=== PATIENT | female | born 1945 | race Caucasian/White ===

== ENCOUNTER → 2016-05-23 | Outpatient (CLI) | payer MEDICARE ==
[2016-05-23 17:07] LABS: BASO % 0.8 %; BASO ABS # 0.07 K/uL (0-0.2); COMPLETE YES; EOS % 3.1 %; HEMATOCRIT 43.1 % (37-47); IG% 1.1 %; LYMPH % 30.3 %; LYMPH ABS # 2.65 K/uL (1.2-3.4); MEAN CELL VOLUME 87.6 fL (80-100); MEAN CORPUSCULAR HEMOGLOBIN 30.9 pg (25-34); MEAN CORPUSCULAR HGB CONC 35.3 g/dl (32-36); MEAN PLATELET VOLUME 10.2 fL (7.4-10.4); MONO % 8.7 %; PLATELET COUNT 284 K/uL (130-400); RED BLOOD COUNT 4.92 M/uL (4.2-5.4); WHITE BLOOD COUNT 8.76 K/uL (4.8-10.8)
[2016-05-23 17:18] LABS: ALT/SGPT 32 U/L (12-78); AST/SGOT 16 U/L (15-37); BLOOD UREA NITROGEN 25 mg/dl (7-18); BUN/CREATININE RATIO 19.5 (10-20); CALCIUM 9.1 mg/dl (8.5-10.1); CARBON DIOXIDE 29 mmol/L (21-32); CHLORIDE 104 mmol/L (98-107); GLUCOSE 153 mg/dl (70-99); MAGNESIUM 2.2 mg/dl (1.8-2.4); POTASSIUM 3.9 mmol/L (3.5-5.1); SODIUM 142 mmol/L (136-145)
[2016-05-23 17:21] LABS: ALB/GLOB RATIO 1.1 (0.9-2); ALKALINE PHOSPHATASE 111 U/L (45-117)
== END | disposition home or self-care (01) ==
LOC: C.LABBC 14:31
PROVIDERS: ATTEND Family Medicine
DX: N18.3 Chronic kidney disease, stage 3 (moderate) (principal); Z11.59 Encounter for screening for other viral diseases

== ENCOUNTER → 2016-08-19 | Outpatient (CLI) | payer MEDICARE | END | disposition home or self-care (01) | LOC: C.PATHSPEC 09:53 | PROVIDERS: ATTEND Obstetrics & Gynecology | DX: N64.52 Nipple discharge (principal) ==

== ENCOUNTER → 2016-08-19 | Outpatient (CLI) | payer MEDICARE ==
[2016-08-19 10:58] LABS: ESTIMATED AVERAGE GLUCOSE 174 mg/dl; HA1C FLAG Normal (Normal)
[2016-08-19 11:26] LABS: RATIO 14.4 mcg/mg (0-30.0)
== END | disposition home or self-care (01) ==
LOC: C.LABBC 09:06
PROVIDERS: ATTEND Physician Assistant
DX: E11.9 Type 2 diabetes mellitus without complications (principal); E66.9 Obesity, unspecified; E04.1 Nontoxic single thyroid nodule; N64.52 Nipple discharge

== ENCOUNTER → 2016-08-28 | Outpatient (CLI) | payer MEDICARE ==
[2016-08-28 17:25] LABS: THYROID STIMULATING HORMONE 1.55 uIu/ml (0.300-4.500)
== END | disposition home or self-care (01) ==
LOC: C.LABBC 15:22
PROVIDERS: ATTEND Physician Assistant
DX: R94.6 Abnormal results of thyroid function studies (principal)

== ENCOUNTER → 2016-08-30 | Outpatient (CLI) | payer MEDICARE ==
--- NOTE | 2016-08-30 12:40 | DIAGNOSTIC IMAGING REPORT ---
LEFT FOOT MIN 3 VIEWS ROUTINE CLINICAL HISTORY: Left foot pain and swelling. No known trauma. COMPARISON: None FINDINGS: The tarsometatarsal joints are intact. Soft tissue swelling of the left foot is noted. There is posterior calcaneal spurring and calcification within the distal Achilles. There is mild arthritis within multiple articulations of the left foot. Soft tissue swelling and calcific densities adjacent to the left first metatarsal head are noted. No erosions are identified. IMPRESSION: 1. No acute fracture or dislocation of the left foot. 2. Soft tissue swelling and soft tissue calcifications adjacent to left first metatarsal head. These findings are nonspecific although could be seen in the setting of gout. 3. 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 4. Posterior calcaneal spurring. Electronically signed by: Jai Kaplan M.D. 08/30/2016 12:39 PM Dictated Date/Time: 08/30/2016 12:36 PM
== END | disposition home or self-care (01) ==
LOC: C.RADBC 11:52
PROVIDERS: ATTEND Internal Medicine
DX: M79.89 Other specified soft tissue disorders (principal); M77.32 Calcaneal spur, left foot

== ENCOUNTER → 2016-08-30 | Outpatient (CLI) | payer MEDICARE ==
--- NOTE | 2016-08-30 13:21 | DIAGNOSTIC IMAGING REPORT ---
ULTRASOUND LEFT LOWER EXTREMITY VENOUS CLINICAL HISTORY: Left leg swelling. COMPARISON STUDY: No priors. TECHNIQUE: Real-time, grayscale, and color Doppler sonography of the deep veins of the left lower extremity was performed from the inguinal crease to the calf. Compression and augmentation were utilized. FINDINGS: There is no sonographic evidence of deep venous thrombosis identified in the left lower extremity. The common femoral, superficial femoral, and popliteal veins are patent and normally compressible. The profunda femoris vein at the junction with the common femoral vein is clear. The greater saphenous vein was not identified and has reportedly been ablated. The visualized calf veins are patent. IMPRESSION: There is no sonographic evidence of deep venous thrombosis identified in the left lower extremity. Electronically signed by: Sanya Meeks M.D. 08/30/2016 1:20 PM Dictated Date/Time: 08/30/2016 1:19 PM
--- NOTE | 2016-10-11 10:26 | CODING QUERY MEDICAL NECESSITY ---
SUPPORTING DIAGNOSIS NEEDED Dr. Salter, A supporting diagnosis is required for the test/procedure performed on this patient in order for us to be reimbursed by the patient's insurance. Please provide a supporting diagnosis for the following test/procedure listed below next to the test name along with your signature. *If there is no additional diagnosis for this patient that would support the following test/procedure please document that below next to the test/procedure. Test(s)/Procedure(s) that require a supporting diagnosis: * ([id number]) VENOUS DOPPLER LOWER EXT UNILA DIAGNOSIS: DATE OF SERVICE: 08/30/16 Provider Signature: Date: Thank you Kyaw Villegas [facility] Information Management Once completed, please kindly fax back to [phone] For questions please call [phone]
== END | disposition home or self-care (01) ==
LOC: C.ULTRBC 12:08
PROVIDERS: ATTEND Internal Medicine
DX: M79.89 Other specified soft tissue disorders (principal)

== ENCOUNTER → 2016-10-16 | Outpatient (CLI) | payer MEDICARE ==
--- NOTE | 2016-10-16 14:48 | MAMMOGRAPHY REPORT ---
BILATERAL DIGITAL SCREENING MAMMOGRAM WITH CAD: 10/16/2016 CLINICAL HISTORY: Routine screening. Patient has no complaints. TECHNIQUE: Current study was also evaluated with a Computer Aided Detection (CAD) system. Bilateral CC and MLO views were obtained. COMPARISON: Comparison is made to exams dated: 09/27/2015 mammogram - [facility], mammogram, 10/10/2010 mammogram, 09/19/2010 mammogram, 04/03/2009 mammogram, and 04/01/2008 mammo gram - [facility]. BREAST COMPOSITION: There are scattered areas of fibroglandular density in both breasts. FINDINGS: No suspicious masses, calcifications, or areas of architectural distortion are noted in ei ther breast. There has been no significant interval change compared to prior exams. IMPRESSION: ACR BI-RADS CATEGORY 1: NEGATIVE There is no mammographic evidence of malignancy. A 1 year screening mammogram is recommended. The pa tient will receive written notification of the results. Approximately 10% of breast cancers are not detected with mammography. A negative mammographic report should not delay biopsy if a clinically suggestive mass is present. Veronika Mojica M.D. /:10/16/2016 12:31:51 [employer] Development Specialist Manager: Dania Kowalski, [facility] letter sent: Normal 1/2 BI-RADS Code: ACR BI-RADS Category 1: Negative
== END | disposition home or self-care (01) ==
LOC: C.MAMM 11:16
PROVIDERS: ATTEND Family Medicine
DX: Z12.31 Encounter for screening mammogram for malignant neoplasm of breast (principal)

== ENCOUNTER → 2016-11-25 | Outpatient (CLI) | payer MEDICARE ==
[2016-11-25 09:49] LABS: ALT/SGPT 20 U/L (12-78); AST/SGOT 17 U/L (15-37); BLOOD UREA NITROGEN 18 mg/dl (7-18); BUN/CREATININE RATIO 13.5 (10-20); CALCIUM 8.8 mg/dl (8.5-10.1); CARBON DIOXIDE 26 mmol/L (21-32); CHLORIDE 107 mmol/L (98-107); GLUCOSE 297 mg/dl (70-99); SODIUM 140 mmol/L (136-145)
[2016-11-25 09:54] LABS: ALB/GLOB RATIO 1.1 (0.9-2); ALKALINE PHOSPHATASE 101 U/L (45-117); CHOLESTEROL 201 mg/dl (0-200); CHOLESTEROL/HDL RATIO 5.6; HDL CHOLESTEROL 36 mg/dl; LDL CHOLESTEROL CALCULATED 133 mg/dl; TRIGLYCERIDES 159 mg/dl (0-150); VERY LOW DENSITY LIPOPROT CALC 32 mg/dl
[2016-11-25 10:01] LABS: ESTIMATED AVERAGE GLUCOSE 183 mg/dl; HA1C FLAG Normal (Normal)
== END | disposition home or self-care (01) ==
LOC: C.LAB1850 07:45
PROVIDERS: ATTEND Physician Assistant
DX: E11.9 Type 2 diabetes mellitus without complications (principal)

== ENCOUNTER → 2017-04-02 | Outpatient (CLI) | payer MEDICARE ==
[2017-04-02 10:17] LABS: ESTIMATED AVERAGE GLUCOSE 189 mg/dl; HA1C FLAG Normal (Normal)
[2017-04-02 10:45] LABS: BLOOD UREA NITROGEN 19 mg/dl (7-18); BUN/CREATININE RATIO 15.8 (10-20); CALCIUM 8.3 mg/dl (8.5-10.1); CARBON DIOXIDE 26 mmol/L (21-32); CHLORIDE 106 mmol/L (98-107); CREATININE 1.21 mg/dl (0.60-1.20); GLUCOSE 214 mg/dl (70-99); POTASSIUM 3.7 mmol/L (3.5-5.1); SODIUM 138 mmol/L (136-145)
[2017-04-02 10:49] LABS: CHOLESTEROL 210 mg/dl (0-200); CHOLESTEROL/HDL RATIO 5.1; HDL CHOLESTEROL 41 mg/dl; LDL CHOLESTEROL CALCULATED 138 mg/dl; TRIGLYCERIDES 157 mg/dl (0-150); VERY LOW DENSITY LIPOPROT CALC 31 mg/dl
== END | disposition home or self-care (01) ==
LOC: C.LAB1850 09:09
PROVIDERS: ATTEND Physician Assistant
DX: E10.9 Type 1 diabetes mellitus without complications (principal); N18.3 Chronic kidney disease, stage 3 (moderate); E78.5 Hyperlipidemia, unspecified

== ENCOUNTER → 2017-04-03 | Outpatient (CLI) | payer MEDICARE | END | disposition home or self-care (01) | LOC: C.LAB1850 14:26 | PROVIDERS: ATTEND Physician Assistant | DX: E10.22 Type 1 diabetes mellitus with diabetic chronic kidney disease (principal); E78.5 Hyperlipidemia, unspecified; N18.3 Chronic kidney disease, stage 3 (moderate); E55.9 Vitamin D deficiency, unspecified; E10.21 Type 1 diabetes mellitus with diabetic nephropathy ==

== ENCOUNTER → 2017-07-11 | Outpatient (CLI) | payer MEDICARE ==
[2017-07-11 12:35] LABS: HEMOGLOBIN A1C 8.3 % (4.5-5.6)
[2017-07-11 12:46] LABS: BLOOD UREA NITROGEN 25 mg/dl (7-18); CALCIUM 8.9 mg/dl (8.5-10.1); CARBON DIOXIDE 21 mmol/L (21-32); CREATININE 1.27 mg/dl (0.60-1.20); GLUCOSE 280 mg/dl (70-99); POTASSIUM 3.5 mmol/L (3.5-5.1); SODIUM 136 mmol/L (136-145)
== END | disposition home or self-care (01) ==
LOC: C.LAB1850 11:21
PROVIDERS: ATTEND Physician Assistant
DX: E10.9 Type 1 diabetes mellitus without complications (principal)

== ENCOUNTER → 2017-07-15 | Outpatient (CLI) | payer MEDICARE | END | disposition home or self-care (01) | LOC: C.LAB1850 17:20 | PROVIDERS: ATTEND Physician Assistant | DX: N18.3 Chronic kidney disease, stage 3 (moderate) (principal) ==

== ENCOUNTER → 2017-12-04 | Outpatient (CLI) | payer MEDICARE ==
[2017-12-04 12:14] LABS: HEMATOCRIT 41.5 % (37-47); HEMOGLOBIN 14.4 g/dL (12.0-16.0); MEAN CELL VOLUME 87.2 fL (80-100); MEAN CORPUSCULAR HEMOGLOBIN 30.3 pg (25-34); MEAN CORPUSCULAR HGB CONC 34.7 g/dl (32-36); MEAN PLATELET VOLUME 10.6 fL (7.4-10.4); PLATELET COUNT 238 K/uL (130-400); RED CELL DISTRIBUTION WIDTH CV 13.7 % (11.5-14.5); RED CELL DISTRIBUTION WIDTH SD 43.5 fL (36.4-46.3); WHITE BLOOD COUNT 5.84 K/uL (4.8-10.8)
[2017-12-04 12:36] LABS: HEMOGLOBIN A1C 7.9 % (4.5-5.6)
[2017-12-04 12:57] LABS: ALBUMIN 3.3 gm/dl (3.4-5.0); ALKALINE PHOSPHATASE 88 U/L (45-117); ALT/SGPT 19 U/L (12-78); AST/SGOT 14 U/L (15-37); BLOOD UREA NITROGEN 25 mg/dl (7-18); CALCIUM 9.2 mg/dl (8.5-10.1); CARBON DIOXIDE 24 mmol/L (21-32); CREATININE 1.38 mg/dl (0.60-1.20); GLUCOSE 243 mg/dl (70-99); POTASSIUM 3.5 mmol/L (3.5-5.1); SODIUM 139 mmol/L (136-145); TOTAL PROTEIN 6.7 gm/dl (6.4-8.2)
== END | disposition home or self-care (01) ==
LOC: C.LAB1850 11:22
PROVIDERS: ATTEND Internal Medicine
DX: N18.3 Chronic kidney disease, stage 3 (moderate) (principal); M10.9 Gout, unspecified; M79.89 Other specified soft tissue disorders; E10.21 Type 1 diabetes mellitus with diabetic nephropathy

== ENCOUNTER 2021-11-22 09:44 | Inpatient (IN) ==
--- NOTE | 2021-11-22 10:11 | Emergency Department Note ---
Impression & Plan Acute kidney injury ADMIT ED Provider Note HPI: The patient is a 75-year-old female with history of type 1 diabetes, presents the emergency department with a chief complaint of diarrhea for the past 4 days, patient states she also has had a headache during that time, patient denies any nausea or vomiting. Patient states that she has had diminished p.o. intake during this time, states that every time she eats or drinks something "it just comes right out the other end". Patient denies any chest pain or shortness of breath but she is weak appearing on arrival, she was noted to have hypotension in the 70s systolic in triage and was brought immediately back and placed in a room. On my assessment the patient is alert, complains of some generalized weakness, states she does not have any focal complaint of pain. Patient states her diarrhea has been watery over the past several days, denies any blood per rectum. Patient denies any vomiting. States that she has had a generalized throbbing headache during this time as well. Patient is alert and oriented on a rrival, aside from her hypotension she is saturating well on room air and does not have a fever on arrival. ROS: -GI: Diarrhea -General: Generalized weakness *10 point review systems was conducted and is otherwise negative unless stated above *Outpatient medications and allergy history reviewed PE: General: Alert, weak appearing HEENT: Normocephalic, atraumatic Eyes: Extraocular eye movement is intact, no scleral erythema Pulmonary: Clear to auscultation bilaterally, no wheezing Cardio: Regular rate and rhythm GI: Abdomen is soft, nontender : No suprapubic tenderness MSK: No evidence of trauma or malformation of the extremities, no edema Skin: No evidence of rash Neuro: Alert, no focal deficits Psychiatric: Cooperative glacing machine tender: - An order was placed for continuous cardiac monitoring - Patient was noted to be in sinus rhythm with rate of 98 EKG: Rate: 95 Rhythm: Sinus rhythm Intervals: Within normal limits ST changes: No ST elevation Medical Decision Making: Patient presented to the emergency department with generalized weakness, diarrhea for the past 4 days, also complains of a mild to moderate headache that is been ongoing during the same period of time. Patient states she has had diminished p.o. intake. On arrival here to the ED the patient was hypotensive, she was placed in a room, large-bore IVs established, patient was IV fluid resuscitated with good improvement in her pressure to greater than 100 systolic. She is not tachycardic, she is not febrile, she is alert. CT imaging of the abdomen pelvis was obtained that shows questionable left-sided pyelonephritis, patient is yet to provide a urine sample at the time of admission. Lab work otherwise shows multiple abnormalities consistent with dehydration, creatinine is elevated at 5.1 (baseline around 1.5) reduced serum bicarbonate level at 17, patient's blood sugar is 169, patient is noted to have a leukocytosis of 14,000, blood cultures were drawn in the ED. Over concern for possible kidney infection patient was started on ceftriaxone. Stool PCR is currently pending. On my reassessment following IV fluid resuscitation patient states she is not feeling much differently, her vital signs are improved from previous. CT imaging of the head was obtained given her complaint of headache with these ongoing GI issues and CT imaging of the head is unremarkable. I have low suspicion for intracranial pathology as a source of her headache and I believe this is more likely to be related to her dehydration and volume status. I discussed the above findings with the patient and her family at the bedside, they are in agreement for admission, stool PCR and urinalysis are currently pending. Case was discussed with the on-call midlevel provider for [facility], Mathew Yoder NP, and the patient was admitted in stable condition for further care. Diagnosis: 1. Acute kidney injury 2. Metabolic acidosis 3. Dehydration 4. Diarrhea, acute, not otherwise specified 5. 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 Type 1 diabetes mellitus, uncontrolled Surgical History H/O cataract extraction History of adenoidectomy History of bilateral oophorectomy History of biopsy of bladder History of colonoscopy History of dilatation and curettage History of esophagogastroduodenoscopy (EGD) History of ligation of vein History of resection of small bowel History of tonsillectomy History of tooth extraction Hx of biopsy Hx of oophorectomy Family History Father Cardiovascular disease COPD (chronic obstructive pulmonary disease) Family history of cerebrovascular accident Myocardial infarction Stroke Mother Cardiovascular disease Family history of diabetes mellitus Hypertension Family history of cerebrovascular accident Stroke Sister Family history of coronary artery disease Family/Other Ovarian cancer Denies family history of Prostate cancer Breast cancer Colorectal cancer Social History Smoking Status: Never smoker Second Hand Exposure: Yes (as kid); Hx Alcohol Use: No Hx Substance Use: No Preferred Language: Maldivian Communication Ability: Effective Visual Impairment: No Limitations Hearing Ability: Normal Checkout Operator Required: No Beliefs That Will Affect Care: None marital status: Current Living Situation: Spouse current occupational status: retired How many Children do You have: 3 How many Children do You have Comment: 1 girl 2 boy Feels Safe at Home: Yes Childhood Exposure to Second-Hand Smoke: Yes during the past year weight has: remained stable Dental Care, Regularly: Yes Physical Activity Frequency: Daily Seatbelt Use: always Sunscreen Use: Yes Assistive Devices: Glasses Allergies Allergies Allergy/AdvReac Type Severity Reaction Status Date / Time Iodinated Contrast Media Allergy Mild Unknown Verified 11/22/21 12:12 iodine Allergy Mild Unknown Verified 11/22/21 12:12 apixaban [From Eliquis] AdvReac Mild Hives Verified 11/22/21 12:12 atorvastatin AdvReac Mild leg cramps Verified 11/22/21 12:12 rosuvastatin AdvReac Mild leg cramps Verified 11/22/21 12:12 simvastatin AdvReac Mild leg cramps Verified 11/22/21 12:12 Home Meds Home Medications Medication Instructions Recorded Confirmed blood-glucose meter,continuous #1 ea 10/20/20 11/22/21 (Dexcom G6 Marketing Summer Intern) blood-glucose sensor (Dexcom G6 #3 ea 10/20/20 11/22/21 Sensor) blood-glucose transmitter (Dexcom #1 ea 10/20/20 11/22/21 G6 Transmitter) cholecalciferol (vitamin D3) 25 25 mcg PO DAILY 10/20/20 11/22/21 mcg (1,000 unit) capsule Previous Rx's Medication Instructions Recorded pravastatin 10 mg tablet 10 mg PO .COMPLEX #30 tabs 02/06/21 pen needle, diabetic 32 gauge x #500 ea 03/15/21" (BD Ultra-Fine Fela Pen Needle) hydrochlorothiazide 25 mg tablet 25 mg PO DAILY #90 tabs 05/07/21 omeprazole 40 mg capsule,delayed 40 mg PO DAILY #90 caps 05/07/21 release insulin lispro 100 unit/mL 150 unit (1.5 mL) subcut .COMPLEX 05/10/21 subcutaneous pen (Humalog KwikPen #135 mL (U-100) Insulin) losartan 100 mg tablet 100 mg PO DAILY #90 tabs 06/22/21 insulin glargine U-300 conc 300 53 unit (0.1767 mL) subcut HS #18 08/02/21 unit/mL (1.5 mL) subcutaneous pen mL (Toujeo SoloStar U-300 Insulin) Results & Data (ED) Vital Signs Vital Signs - 24 hr 11/22/21 10:00 11/22/21 10:20 11/22/21 10:20 Temperature 36.7 C Temperature Source Temporal Artery Scan Pulse Rate 94 H Pulse Rate [Apical] 95 H Pulse Rhythm [Apical] Regular Respiratory Rate 18 16 Respiratory Effort / Characteristics Non-Labored Non-Labored Respiratory Depth Normal Blood Pressure 75/47 L Blood Pressure [Right Arm] 108/60 Blood Pressure Mean 56 Blood Pressure Mean [Right Arm] 76 Pulse Oximetry 96 95 Oxygen Delivery Method Room Air Room Air Sepsis Recent Fever Within 48 Hours No Sepsis New/Unexplained Change in Mental Status No Sepsis Action Taken by Nursing No Action Required 11/22/21 10:20 11/22/21 10:38 11/22/21 10:38 Temperature Temperature Source Pulse Rate Pulse Rate [Apical] 98 H Pulse Rhythm [Apical] Regular Respiratory Rate 16 Respiratory Effort / Characteristics Non-Labored Non-Labored Respiratory Depth Normal Blood Pressure Blood Pressure [Right Arm] 136/60 Blood Pressure Mean Blood Pressure Mean [Right Arm] 85 Pulse Oximetry 95 96 Oxygen Delivery Method Room Air Room Air Sepsis Recent Fever Within 48 Hours Sepsis New/Unexplained Change in Mental Status Sepsis Action Taken by Nursing 11/22/21 10:53 11/22/21 11:24 Temperature Temperature Source Pulse Rate Pulse Rate [Apical] 87 90 Pulse Rhythm [Apical] Respiratory Rate 18 20 Respiratory Effort / Characteristics Respiratory Depth Blood Pressure Blood Pressure [Right Arm] 136/60 129/64 Blood Pressure Mean Blood Pressure Mean [Right Arm] 85 85 Pulse Oximetry 96 97 Oxygen Delivery Method Room Air Room Air Sepsis Recent Fever Within 48 Hours Sepsis New/Unexplained Change in Mental Status Sepsis Action Taken by Nursing Laboratory Data Result diagrams: 11/22/21 10:15 11/22/21 10:15 Lab Results 11/22/21 11/22/21 11/22/21 Range/Units 10:15 10:15 10:15 WBC 14.06 H (4.8-10.8) K/ul RBC 4.34 (3.93-5.22) M/uL Hgb 13.9 (12.0-16.0) g/dl Hct 39.3 (34.1-44.9) % MCV 90.6 (80.0-100.0) fL MCH 32.0 (25.0-34.0) pg MCHC 35.4 (32.0-36.0) g/dL RDW Std Deviation 44.3 (36.4-46.3) fL RDW Coeff of Dior 13.3 (11.5-14.5) % Plt Count 166 (130-400) K/uL MPV 10.4 (9.4-12.3) fL Immature Gran % (Auto) 1.4 % Neut % (Auto) 89.0 % Lymph % (Auto) 5.2 % Frio % (Auto) 3.3 % Eos % (Auto) 0.4 % Baso % (Auto) 0.7 % Neut # (Auto) 12.50 H (1.4-6.5) K/uL Lymph # (Auto) 0.73 L (1.2-3.4) K/uL Frio # (Auto) 0.47 (0.24-0.82) K/uL Eos # (Auto) 0.06 (0-0.50) K/uL Baso # (Auto) 0.10 (0-0.2) K/uL Immature Gran # (Auto) 0.20 H (0.00-0.02) K/uL Polychromasia 1+ Echinocytes 1+ PT Cancelled INR Cancelled APTT Cancelled PTT Ratio Cancelled Sodium 132 L (136-145) mmol/L Potassium 3.6 (3.5-5.1) mmol/L Chloride 97 L (98-107) mmol/L Carbon Dioxide 17 L (21-32) mmol/L Anion Gap 18 H (3-11) BUN 56 H (6-23) mg/dl Creatinine 5.12 H* (0.6-1.2) mg/dl Est Cr Clr Drug Dosing 10.9 ml/min Est GFR ( Amer) 8.8 ml/min Est GFR (Non-Af Amer) 7.6 ml/min BUN/Creatinine Ratio 10.9 (10-20) Glucose 169 H (70-99(Fasting)) mg/dl POC Glucose (70-99) mg/dl Lactate (0.4-2.0) mmol/L Calcium 9.1 (8.5-10.1) mg/dl Magnesium 1.2 L (1.7-2.4) mg/dl Total Bilirubin 2.5 H (0.2-1.0) mg/dl AST 40 H (13-39) U/L ALT 22 (7-52) U/L Alkaline Phosphatase 115 H (34-104) U/L Troponin I High Sens 13.1 (0-14) pg/ml Total Protein 6.7 (6.0-8.3) gm/dl Albumin 3.3 L (3.4-5.0) gm/dl Globulin 3.4 (2.5-4.0) gm/dl Albumin/Globulin Ratio 1.0 (0.9-2) 11/22/21 11/22/21 11/22/21 Range/Units 10:15 10:28 10:54 WBC (4.8-10.8) K/ul RBC (3.93-5.22) M/uL Hgb (12.0-16.0) g/dl Hct (34.1-44.9) % MCV (80.0-100.0) fL MCH (25.0-34.0) pg MCHC (32.0-36.0) g/dL RDW Std Deviation (36.4-46.3) fL RDW Coeff of Dior (11.5-14.5) % Plt Count (130-400) K/uL MPV (9.4-12.3) fL Immature Gran % (Auto) % Neut % (Auto) % Lymph % (Auto) % Frio % (Auto) % Eos % (Auto) % Baso % (Auto) % Neut # (Auto) (1.4-6.5) K/uL Lymph # (Auto) (1.2-3.4) K/uL Frio # (Auto) (0.24-0.82) K/uL Eos # (Auto) (0-0.50) K/uL Baso # (Auto) (0-0.2) K/uL Immature Gran # (Auto) (0.00-0.02) K/uL Polychromasia Echinocytes PT 12.4 H INR 1.2 H APTT 32.5 H PTT Ratio 1.2 Sodium (136-145) mmol/L Potassium (3.5-5.1) mmol/L Chloride (98-107) mmol/L Carbon Dioxide (21-32) mmol/L Anion Gap (3-11) BUN (6-23) mg/dl Creatinine (0.6-1.2) mg/dl Est Cr Clr Drug Dosing ml/min Est GFR ( Amer) ml/min Est GFR (Non-Af Amer) ml/min BUN/Creatinine Ratio (10-20) Glucose (70-99(Fasting)) mg/dl POC Glucose 175 H (70-99) mg/dl Lactate 4.0 H* (0.4-2.0) mmol/L Calcium (8.5-10.1) mg/dl Magnesium (1.7-2.4) mg/dl Total Bilirubin (0.2-1.0) mg/dl AST (13-39) U/L ALT (7-52) U/L Alkaline Phosphatase (34-104) U/L Troponin I High Sens (0-14) pg/ml Total Protein (6.0-8.3) gm/dl Albumin (3.4-5.0) gm/dl Globulin (2.5-4.0) gm/dl Albumin/Globulin Ratio (0.9-2) Administered Medications Discontinued Medications Sodium Chloride (Nss 1000ml) 1,000 mls @ 999 mls/hr IV .Q1H1M GAUTAM Stop: 11/22/21 11:08 Last Infusion: 11/22/21 11:25 Dose: 0 mls/hr Documented By: Admin: 11/22/21 10:20 Dose: 999 mls/hr Documented By: RC Sodium Chloride (Nss 1000ml) 1,000 mls @ 999 mls/hr IV .Q1H1M ONE Stop: 11/22/21 12:06 Last Admin: 11/22/21 11:26 Dose: 999 mls/hr Documented By: OL Imaging Data Radiologist's Impression: Chest X-Ray 11/22/21 10:08 XR chest 1V portable CLINICAL HISTORY: SEPSIS COMPARISON STUDY: Chest radiograph November 24, 2019. FINDINGS: Lung volumes are normal. Obscuration of the left hemidiaphragm is noted. There is no pneumothorax or pleural effusion. Cardiac size is normal. Mediastinal contours are normal. There is no evidence for pulmonary edema. IMPRESSION: Obscuration of the left hemidiaphragm. This is probably artifactual although left lower lobe consolidation would be difficult to exclude. ACT 112: Negative or not required by law. Electronically signed by: Jai Kaplan M.D. 11/22/2021 10:[address] 11/22/21 10:[address] DOSE: 846.33 mGy.cm HISTORY: Headache. TECHNIQUE: Multiaxial CT images of the head were performed without the use of intravenous contrast. Automated exposure control was utilized for this study. A dose lowering technique was utilized adhering to the principles of ALARA. Comparison: None. Findings: The paranasal sinuses and mastoid air cells are clear. The calvarium and skull base are intact. There is no mass, hematoma, midline shift, acute infarct. White matter hypodensity is nonspecific but suggestive of microvascular ischemic change. The ventricles and sulci demonstrate mild age-related involutional changes. Impression: No acute intracranial abnormality. Atrophy and microvascular ischemic changes. ACT 112: Negative or not required by law. Electronically signed by: Dewayne Javier M.D. 11/22/2021 11:27 AM Abdomen/Pelvis CT 11/22/21 10:10 CT OF THE ABDOMEN AND PELVIS WITHOUT CONTRAST CLINICAL HISTORY: diarrhea x 4 days contrast allx COMPARISON STUDY: Pelvic ultrasound May 25, 2020. CT of the abdomen and pel vis March 16, 2020. TECHNIQUE: Axial images of the abdomen and pelvis were obtained without IV contrast. Images were reviewed in the axial, sagittal, and coronal planes. Automated exposure control was utilized for the study. A dose lowering technique was utilized adhering to the principles of ALARA. FINDINGS: Lung bases are unremarkable. No pneumatosis, free air or portal venous gas is present. There is probable hepatic steatosis. There are gallstones within the gallbladder. No pericholecystic fluid is present. No biliary or pancreatic ductal dilatation is identified on this unenhanced examination. Unenhanced images of the spleen, adrenal glands and pancreas are unremarkable with exception of pancreatic calcifications. No peripancreatic or pericholecystic stranding is present. No urinary calculi are present. There is no hydronephrosis. Note is made of mild left perinephric stranding. There is also stranding adjacent to the bladder. Bladder wall thickening is noted. Stranding adjacent to the descending colon is most likely related to the left kidney. No colonic wall thickening is noted on unenhanced exam. There is chronic diverticulosis without evidence for acute diverticulitis. Appendix is normal. Prominent retroperitoneal lymph nodes are unchanged. The uterus is prominent. Although suboptimally assessed by CT, this is unchanged. IMPRESSION: 1. Left perinephric stranding. This is nonspecific but raises the possibility of an infectious process such as pyelonephritis. Bladder wall thickening with adjacent infiltration. Findings could be correlated with urinalysis. 2. No urinary calculi or hydronephrosis. 3. Cholelithiasis. 4. Stranding adjacent to the descending colon. This is likely related to the left renal process. However, a nonspecific colitis or diverticulitis would be difficult to completely exclude. No bowel wall thickening. No abscess. ACT 112: Negative or not required by law. Electronically signed by: Jai Kaplan M.D. 11/22/2021 11:26 AM Discharge Plan Visit Data Chief Complaint: Dehydration Stated Complaint: DEHYDRATION, DIARRHEA, REF BY ED Provider: Andrea Oconnor Discharge Problem: Acute kidney injury Patient Disposition: Admitted As Inpatient Forms Stand Alone Forms: [facility] [employer] Prescriptions Prescriptions: No Action (DME) pen needle, diabetic [BD Ultra-Fine Fela Pen Needle] 32 gauge x 5/32" needle See Rx Instructions .ROUTE .MEDSUPPLY Qty: 500 3RF Rx Instructions: use 5 x daily omeprazole 40 mg capsule,delayed release(DR/EC) 40 mg PO DAILY Qty: 90 3RF hydrochlorothiazide 25 mg tablet 25 mg PO DAILY Qty: 90 3RF insulin lispro [Humalog KwikPen Insulin] 100 unit/mL insulin pen 150 unit SQ .COMPLEX Qty: 135 3RF Rx Instructions: 150 units subcut inject per sliding scale with meals up to 150 units daily; losartan 100 mg tablet 100 mg PO DAILY Qty: 90 3RF Toujeo SoloStar U-300 Insulin 300 unit/mL (1.5 mL) insulin pen 53 unit SQ HS Qty: 18 3RF pravastatin 10 mg tablet 10 mg PO .COMPLEX Qty: 30 2RF Rx Instructions: 10 mg PO 2x a week ..; cholecalciferol (vitamin D3) 25 mcg (1,000 unit) capsule 25 mcg PO DAILY (DME) Dexcom G6 Sensor Device See Rx Instructions .ROUTE .MEDSUPPLY Qty: 3 Rx Instructions: As directed (DME) Dexcom G6 Marketing Summer Intern Misc See Rx Instructions .ROUTE .MEDSUPPLY Qty: 1 Rx Instructions: As directed (DME) Dexcom G6 Transmitter Device See Rx Instructions .ROUTE .MEDSUPPLY Qty: 1 Rx Instructions: As directed Referrals Referrals: Td Foster MD [Primary Care Provider] -
[2021-11-22] MEDS ORDERED: SODIUM CHLORIDE 0.9% 1000ML 1,000 ML IV SCH ×2 (10:15→12:15)
[2021-11-22 10:32] LABS: Hematocrit (blood only) 39.3 % (34.1-44.9); Hemoglobin 13.9 g/dl (12.0-16.0); Mean Corpuscular Hgb Conc 35.4 g/dL (32.0-36.0); Mean Corpuscular Volume 90.6 fL (80.0-100.0); Mean Platelet Volume 10.4 fL (9.4-12.3); Platelet Count 166 K/uL (130-400); RDW Coefficient of Variation 13.3 % (11.5-14.5); RDW Standard Deviation 44.3 fL (36.4-46.3); Red Blood Count 4.34 M/uL (3.93-5.22); White Blood Count 14.06 K/ul (4.8-10.8)
--- NOTE | 2021-11-22 10:43 | XRay Report ---
XR chest 1V portable CLINICAL HISTORY: SEPSIS COMPARISON STUDY: Chest radiograph November 24, 2019. FINDINGS: Lung volumes are normal. Obscuration of the left hemidiaphragm is noted. There is no pneumo thorax or pleural effusion. Cardiac size is normal. Mediastinal contours are normal. There is no evid ence for pulmonary edema. IMPRESSION: Obscuration of the left hemidiaphragm. This is probably artifactual although left lower l obe consolidation would be difficult to exclude. ACT 112: Negative or not required by law. Electronically signed by: Jai Kaplan M.D. 11/22/2021 10:31 AM
[2021-11-22 10:54] LABS: Albumin Level 3.3 gm/dl (3.4-5.0); BUN Creatinine Ratio 10.9 (10-20); Bilirubin,Total 2.5 mg/dl (0.2-1.0); Calcium 9.1 mg/dl (8.5-10.1); Creatinine Clr Calc Pharmacy 10.9 ml/min; Est GFR (African American) 8.8 ml/min; Est GFR (Non-African American) 7.6 ml/min; Globulin 3.4 gm/dl (2.5-4.0); Magnesium 1.2 mg/dl (1.7-2.4); Potassium 3.6 mmol/L (3.5-5.1); Total Protein 6.7 gm/dl (6.0-8.3); Troponin I High Sensitivity 13.1 pg/ml (0-14)
[2021-11-22 10:59] LABS: Basophils % (auto) 0.7 %; Echinocytes 1+; Eosinophils # (auto) 0.06 K/uL (0-0.50); Eosinophils % (auto) 0.4 %; Immature Granulocytes % (auto) 1.4 %; Lymphocytes # (auto) 0.73 K/uL (1.2-3.4); Lymphocytes % (auto) 5.2 %; Monocytes # (auto) 0.47 K/uL (0.24-0.82); Monocytes % (auto) 3.3 %; Polychromasia 1+
[2021-11-22] MEDS ORDERED: SODIUM CHLORIDE 0.9% 1000ML 1,000 ML IV ONE (11:06)
--- NOTE | 2021-11-22 11:32 | CT Scan Report ---
CT OF THE ABDOMEN AND PELVIS WITHOUT CONTRAST CLINICAL HISTORY: diarrhea x 4 days contrast allx COMPARISON STUDY: Pelvic ultrasound May 25, 2020. CT of the abdomen and pelvis March 16, 2020 . TECHNIQUE: Axial images of the abdomen and pelvis were obtained without IV contrast. Images were revi ewed in the axial, sagittal, and coronal planes. Automated exposure control was utilized for the mani dy. A dose lowering technique was utilized adhering to the principles of ALARA. FINDINGS: Lung bases are unremarkable. No pneumatosis, free air or portal venous gas is present. Ther e is probable hepatic steatosis. There are gallstones within the gallbladder. No pericholecystic flui d is present. No biliary or pancreatic ductal dilatation is identified on this unenhanced examination . Unenhanced images of the spleen, adrenal glands and pancreas are unremarkable with exception of gamino creatic calcifications. No peripancreatic or pericholecystic stranding is present. No urinary calculi are present. There is no hydronephrosis. Note is made of mild left perinephric stranding. There is a lso stranding adjacent to the bladder. Bladder wall thickening is noted. Stranding adjacent to the de scending colon is most likely related to the left kidney. No colonic wall thickening is noted on unen hanced exam. There is chronic diverticulosis without evidence for acute diverticulitis. Appendix is n ormal. Prominent retroperitoneal lymph nodes are unchanged. The uterus is prominent. Although subopti vince assessed by CT, this is unchanged. IMPRESSION: 1. Left perinephric stranding. This is nonspecific but raises the possibility of an infectious proces s such as pyelonephritis. Bladder wall thickening with adjacent infiltration. Findings could be corre lated with urinalysis. 2. No urinary calculi or hydronephrosis. 3. Cholelithiasis. 4. Stranding adjacent to the descending colon. This is likely related to the left renal process. Rios bryce, a nonspecific colitis or diverticulitis would be difficult to completely exclude. No bowel wall thickening. No abscess. ACT 112: Negative or not required by law. Electronically signed by: Jai Kaplan M.D. 11/22/2021 11:26 AM
--- NOTE | 2021-11-22 11:32 | CT Scan Report ---
HEAD CT NONCONTRAST CT DOSE: 846.33 mGy.cm HISTORY: Headache. TECHNIQUE: Multiaxial CT images of the head were performed without the use of intravenous contrast. A utomated exposure control was utilized for this study. A dose lowering technique was utilized adheri ng to the principles of ALARA. Comparison: None. Findings: The paranasal sinuses and mastoid air cells are clear. The calvarium and skull base are int act. There is no mass, hematoma, midline shift, acute infarct. White matter hypodensity is nonspecifi c but suggestive of microvascular ischemic change. The ventricles and sulci demonstrate mild age-rela ernie involutional changes. Impression: No acute intracranial abnormality. Atrophy and microvascular ischemic changes. ACT 112: Negative or not required by law. Electronically signed by: Dewayne Javier M.D. 11/22/2021 11:27 AM
[2021-11-22 11:33] LABS: INR 1.2 (0.9-1.1); Partial Thromboplastin Ratio 1.2; Partial Thromboplastin Time 32.5 Seconds (21.0-31.0); Prothrombin Time 12.4 Seconds (9.0-12.0)
[2021-11-22] MEDS ORDERED: cefTRIAXone SODIUM 2,000 MG/70 ML BAG IV STA (11:47)
[2021-11-22 12:36] LABS: Appearance Urine Cloudy (Clear); Bacteria Urine Automated 3+ (Negative); Bilirubin Urine Negative (Negative); Blood Urine 3+ (Negative); Color Urine Dark Yellow; Epithelial Cell Urine Auto >30 /lpf (0-5); Glucose Urine UA Negative (Negative); Ketones Urine Negative (Negative); Leukocyte Esterase Urine 2+ (Negative); Nitrite Urine Negative (Negative); Protein Urine 1+ (Negative); Urobilinogen Urine Negative (Negative); WBC Urine Automated >30 /hpf (0-5); pH Urine 5.5 (4.5-7.5)
[2021-11-22] MEDS ORDERED: MAGNESIUM SULFATE 50% 4 GM in SODIUM CHLORIDE 0.9% 1000ML 1,000 ML IV SCH (13:00)
--- NOTE | 2021-11-22 13:45 | History & Physical Report ---
Date of Service November 22, 2021 Assessment & Plan (1) Sepsis: Plan: Patient presents with volume loss secondary to diarrhea and fevers - DDX: Bacterial food bourne gastroenteritis/viral gastroenteritis vs. UTI/pyelonephritis vs. GI source or combination - qSOFA - 2; SIRS -2 - WBC 14 with elevated NLR 9:1- PCT- CRP- 29.05 -Organ dysfunction with increase PARTS DESIGNER, Lactate 4.0- down trending to 2.4, Elevated INR and AST - Resuscitated with 2.5 liters of crystalloid - did make urine since then- recheck lactate; continue with crystalloid of 0.9% with 4GM of mag - Continue Rocephin 2GM IV - will cover possible food borne GI illness, and UTI - RUQUS ultrasound - known gallstone and pancreatic stone - COVID negative - Goal MAPS >65; follow UO goal 0.5ml/kg (2) Acute kidney injury: Plan: RODNEY on CKD III BAUTISTA classification- ARF with increase in 3 times her PARTS DESIGNER from baseline - Likely secondary to volume loss of diarrhea and continued use of her ARB and diuretic therapy with decrease PO intake as well as ascending UTI - UA with protien +1; blood 3+ - consistent from her previous - now new medications started - making urine - HCO3 17 - K 3.6 - Continue with volume resuscitation hold ARB, Diuretic therapy- BMP tonight at 1800 - VBG- PH 7.33- HCO3 uptrending to 21. - Nephrology consulted to follow as she follows with Dr. Mcdonald - IF HCo3 continues to decrease will finish her saline and add isotonic HCO3 for maintenance (3) UTI (urinary tract infection): Plan: Complicated UTI contributing to her sepsis - continue with Rocephin 2 GM IV - await urine culture - LE +, Ni -, + Bacteria, + epis (4) Diarrhea: Plan: Diarrheal illness for 5 days - associated with fever, myalgias - no blood, abdominal pain, or mucous- doubt any ishemia as abd soft and without pain, no evidence of perforation or diverticulitis and without colonic thickening on CT scan - DDX as above - await stool culture - no history of frequent hospitalizations or recent antibiotic use - Continue Ceftriaxone as above (5) Type 1 diabetes mellitus with diabetic retinopathy: Plan: Transition Trujeo to Lantus- will decrease her dose to 20units subq BID follow PO intake - aspart loose sliding scale without carb coverage until PO intake increases - goal <180mg/dl - follow (6) Pancreatic cyst: Plan: Known and follows with Gastroenterology at [facility] - has had this biopsied with reports per daughter as negative- see path report 07/16 - had EUS completed earlier this month - CT abdomen without interpretation of pancreatic stranding (7) Gallstones: Plan: History of and known- tender on exam- RUQUS pending - t. bili 2.5, with alkpo4- 115 (close to baseline), AST 40 - follow following resuscitation and abx therapy (8) Hypertension: Plan: Hold ARB Hold HCTZ - follow - restart when renal function improves (9) Acid reflux: Plan: GERD with Benavides's esophagitis - continues with coughing up thick clear secretions following meals and drinking - PPI to IV while PO status is not at optimal - Follows with GI at [facility], [place]- not sure when last EGD (10) Obesity (BMI 30-39.9): Plan: Stable follows with bariatric medicine - continue management of comorbid metabolic syndrome- lipid, glucose, bp, weight loss (11) Dyslipidemia: Plan: Continue statin (12) Solitary thyroid nodule: Plan: Follows with routine screening - 09/14 - Minimal increase in size of a 1 cm right lobe thyroid nodule since ultrasound of January 18, 2016. This nodule does not meet criteria for biopsy. - continue follow up with endocrine and PCP History of Present Illness Primary Care Provider: Td Foster MD 75 YOF with medical history of: Thyroid nodule, DM I (on Trujeo and sliding scale), Gall stone, pancreatic stone/cyst, CKD III, HTN, HLD, obesity (follows with bariatric medicine), hematuria, superficial DVT (2019), diverticulosis, chronic cough, GERD. Patient comes to the EMD today for complaints of diarrhea, myalgias, fevers decrease PO intake and fatigue. Patient states that this occurred Friday into Friday morning approx at around 0300 in the morning. She was awoken with acute onset of chills and diarhea. Her stool was normally brown with liquid and soft formed. This was not associated with any nausea/vomiting or with any abdominal pain or cramping. Patient reports that she has had 4-6 episodes of diarrhea every day since then. She denies any blood or mucous with these events. She tried to eat and drink but as soon as she would, she would have diarrhea so she stopped. She reports checking her temperature throughout the time and T-max was 102 on Friday. Associated other symptoms are right sided flank pain. She states that her stools are now liquid and green yellow. Patient endorses that she ate Friday evening a chicken salad that was prepared at home. She also endorses that she has continued to take her ARB and diuretic through this as well. She is accompanied by her and daughter. Her ate with her on Friday and he has no symptoms. In the EMD the patient p resented hypotensive in the 70s at triage, but as soon as she was brought back to [facility] she was 108/60. She had routine labs performed to include blood cultures, lactate. She had stool sample and urine sample that are pending. CT of the abdomen performed without contrast. Labs revealed PARTS DESIGNER of 5 with baseline 1.3. Potassium is normal and she is making urine, magnesium low at 1.2. She was given 2.5 liters of 0.9% saline in the EMD. Lacate was 4.0. Patient was started on Rocephin 2 GM IV. Patient will be admitted to PCU for monitoring. Will follow BMP in the evening. Obtain RUQUS as she remains tender in that area. Follow cultures. COVID test on admission is: NEGATIVE Allergies Allergy/AdvReac Type Severity Reaction Status Date / Time Iodinated Contrast Media Allergy Mild Unknown Verified 11/22/21 12:12 iodine Allergy Mild Unknown Verified 11/22/21 12:12 apixaban [From Eliquis] AdvReac Mild Hives Verified 11/22/21 12:12 atorvastatin AdvReac Mild leg cramps Verified 11/22/21 12:12 rosuvastatin AdvReac Mild leg cramps Verified 11/22/21 12:12 simvastatin AdvReac Mild leg cramps Verified 11/22/21 12:12 Home Medications Medication Instructions Recorded Confirmed Type blood-glucose meter,continuous #1 ea 10/20/20 11/22/21 History (Dexcom G6 Database Report Writer) blood-glucose sensor (Dexcom G6 #3 ea 10/20/20 11/22/21 History Sensor) blood-glucose transmitter (Dexcom #1 ea 10/20/20 11/22/21 History G6 Transmitter) cholecalciferol (vitamin D3) 25 25 mcg PO DAILY 10/20/20 11/22/21 History mcg (1,000 unit) capsule pravastatin 10 mg tablet 10 mg PO .COMPLEX #30 tabs 02/06/21 11/22/21 Rx pen needle, diabetic 32 gauge x #500 ea 03/15/21 11/22/21 Rx 5/32" (BD Ultra-Fine Fela Pen Needle) hydrochlorothiazide 25 mg tablet 25 mg PO DAILY #90 tabs 05/07/21 11/22/21 Rx omeprazole 40 mg capsule,delayed 40 mg PO DAILY #90 caps 05/07/21 11/22/21 Rx release insulin lispro 100 unit/mL 150 unit (1.5 mL) subcut .COMPLEX 05/10/21 11/22/21 Rx subcutaneous pen (Humalog KwikPen #135 mL (U-100) Insulin) losartan 100 mg tablet 100 mg PO DAILY #90 tabs 06/22/21 11/22/21 Rx insulin glargine U-300 conc 300 53 unit (0.1767 mL) subcut HS #18 08/02/21 11/22/21 Rx unit/mL (1.5 mL) subcutaneous pen mL (Toujeo SoloStar U-300 Insulin) Past Med/Surg History Medical History Acid reflux Stable and controlled - does have increased secretions at times. Benavides esophagus Cough Chronic x one year- stable- secondary to allergies DVT (deep venous thrombosis) june 2019 > right leg > from low activity levels > xarelto Dyslipidemia Hypertension Osteoporosis Solitary thyroid nodule just monitoring Stage III chronic kidney disease sees Dr. 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 Glucose stable Type 1 diabetes mellitus, uncontrolled Surgical History H/O cataract extraction bilat History of adenoidectomy History of bilateral oophorectomy History of biopsy of bladder History of colonoscopy History of dilatation and curettage History of esophagogastroduodenoscopy (EGD) History of ligation of vein bilat legs History of resection of small bowel over 50 yrs ago History of tonsillectomy History of tooth extraction Hx of biopsy pancreas> cysts are benign Hx of oophorectomy left Family History Father Cardiovascular disease COPD (chronic obstructive pulmonary disease) Family history of cerebrovascular accident Myocardial infarction Stroke Mother Cardiovascular disease Family history of diabetes mellitus Hypertension Family history of cerebrovascular accident Stroke Sister Family history of coronary artery disease Family/Other Ovarian cancer Denies family history of Prostate cancer Breast cancer Colorectal cancer Social History Smoking Status: Never smoker Second Hand Exposure: Yes (as kid); Hx Alcohol Use: No Hx Substance Use: No Preferred Language: Frisian Communication Ability: Effective Visual Impairment: No Limitations Hearing Ability: Normal 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 Beliefs That Will Affect Care: None marital status: Current Living Situation: Spouse current occupational status: retired How many Children do You have: 3 How many Children do You have Comment: 1 girl 2 boy Other Information That Helps Us Care for You: No Feels Safe at Home: Yes Safety Concerns: Feels Safe At This Time Childhood Exposure to Second-Hand Smoke: Yes during the past year weight has: remained stable Dental Care, Regularly: Yes Physical Activity Frequency: Daily Seatbelt Use: always Sunscreen Use: Yes Assistive Devices: Glasses Review of Systems Review of Systems: REVIEW OF SYSTEMS: Constitutional: (+) fever, sweats or chills, easily fatigued Eyes: No diplopia, no worsening or blurred vision ENT: normal hearing, no trouble swallowing Respiratory: (+) chornic cough, NO dyspnea at rest or on exertion Cardiovascular: No chest pain, tightness or palpitations Abdomen: (+) ruq pain, diarrhea, NO nausea, vomiting, abdominal pain or consti pation : (+) flank pain Endocrine: (+) DM with dexcom, thryoid nodule Musculoskeletal: No joint pain, calf pain, swelling Neurologic: No weakness, numbness/tingling, or balance problems Psychiatric: No anxiety or depression Skin: No rash or itch Physical Exam Physical Exam: PHYSICAL EXAM: General: awake, alert, no apparent distress Head: Normocephalic, atraumatic ENT: PERRLA, EOMI, no pharyngeal exudate, mucous membranes dry Neuro: AAO x 3, speech clear and appropriate, strength intact bilaterally 5/5, sensation intact and equal all extremities and dermatomes, no pronator drift Chest: equal rise and fall of the chest, no accessory muscle use, no heaves or thrills, Clear to auscultation, on room air, Cardiac: Regular rate and rhythm, telemetry reviewed-NSR, skin warm dry, cap refill <3 seconds, peripheral pulses, +2 no JVD, no murmur, no edema GI: NABS x 4 quadrants, soft, tender to RUQ and liver with palpation, no rebound, guarding or tenderness : Spontaneously voiding, no pain, right sided CVA tenderness, Extremities: Normal inspection, no peripheral edema or erythema, calfs nontender to palpation Psych: Normal mood and affect Skin: no rash or erythema Results & Data Results & Data ([facility]) Vital Signs (Past 12 Hours) Vital Signs Temp Pulse Pulse Resp BP BP Pulse Ox 11/22/21 12:00 92 H 18 131/65 96 11/22/21 11:24 90 20 129/64 97 11/22/21 10:53 87 18 136/60 96 11/22/21 10:38 98 H 16 136/60 96 11/22/21 10:20 95 11/22/21 10:20 95 H 16 108/60 95 11/22/21 10:00 36.7 C 94 H 18 75/47 L 96 O2 Del Method 11/22/21 12:00 Room Air 11/22/21 11:24 Room Air 11/22/21 10:53 Room Air 11/22/21 10:38 Room Air 11/22/21 10:20 Room Air 11/22/21 10:20 Room Air 11/22/21 10:00 Room Air Laboratory Results Laboratory Results - last 24 hr 11/22/21 11/22/21 11/22/21 10:15 10:15 10:15 WBC 14.06 H RBC 4.34 Hgb 13.9 Hct 39.3 MCV 90.6 MCH 32.0 MCHC 35.4 RDW Std Deviation 44.3 RDW Coeff of Dior 13.3 Plt Count 166 MPV 10.4 Immature Gran % (Auto) 1.4 Neut % (Auto) 89.0 Lymph % (Auto) 5.2 [place] % (Auto) 3.3 Eos % (Auto) 0.4 Baso % (Auto) 0.7 Neut # (Auto) 12.50 H Lymph # (Auto) 0.73 L [place] # (Auto) 0.47 Eos # (Auto) 0.06 Baso # (Auto) 0.10 Immature Gran # (Auto) 0.20 H Polychromasia 1+ Echinocytes 1+ PT Cancelled INR Cancelled APTT Cancelled PTT Ratio Cancelled Sodium 132 L Potassium 3.6 Chloride 97 L Carbon Dioxide 17 L Anion Gap 18 H BUN 56 H Creatinine 5.12 H* Est Cr Clr Drug Dosing 10.9 Est GFR ( Amer) 8.8 Est GFR (Non-Af Amer) 7.6 BUN/Creatinine Ratio 10.9 Glucose 169 H POC Glucose Lactate Calcium 9.1 Magnesium 1.2 L Total Bilirubin 2.5 H AST 40 H ALT 22 Alkaline Phosphatase 115 H Troponin I High Sens 13.1 Total Protein 6.7 Albumin 3.3 L Globulin 3.4 Albumin/Globulin Ratio 1.0 Urine Color Urine Appearance Urine pH Ur Specific [place] Urine Protein Urine Glucose (UA) Urine Ketones Urine Blood Urine Nitrite Urine Bilirubin Urine Urobilinogen Ur Leukocyte Esterase Urine WBC (Auto) Urine RBC (Auto) U Hyaline Cast (Auto) U Epithel Cells (Auto) Urine Bacteria (Auto) Urine Yeast SARS-CoV-2 (PCR) 11/22/21 11/22/21 11/22/21 10:15 10:28 10:54 WBC RBC Hgb Hct MCV MCH MCHC RDW Std Deviation RDW Coeff of Dior Plt Count MPV Immature Gran % (Auto) Neut % (Auto) Lymph % (Auto) [place] % (Auto) Eos % (Auto) Baso % (Auto) Neut # (Auto) Lymph # (Auto) [place] # (Auto) Eos # (Auto) Baso # (Auto) Immature Gran # (Auto) Polychromasia Echinocytes PT 12.4 H INR 1.2 H APTT 32.5 H PTT Ratio 1.2 Sodium Potassium Chloride Carbon Dioxide Anion Gap BUN Creatinine Est Cr Clr Drug Dosing Est GFR ( Amer) Est GFR (Non-Af Amer) BUN/Creatinine Ratio Glucose POC Glucose 175 H Lactate 4.0 H* Calcium Magnesium Total Bilirubin AST ALT Alkaline Phosphatase Troponin I High Sens Total Protein Albumin Globulin Albumin/Globulin Ratio Urine Color Urine Appearance Urine pH Ur Specific [place] Urine Protein Urine Glucose (UA) Urine Ketones Urine Blood Urine Nitrite Urine Bilirubin Urine Urobilinogen Ur Leukocyte Esterase Urine WBC (Auto) Urine RBC (Auto) U Hyaline Cast (Auto) U Epithel Cells (Auto) Urine Bacteria (Auto) Urine Yeast SARS-CoV-2 (PCR) 11/22/21 11/22/21 11:35 12:20 WBC RBC Hgb Hct MCV MCH MCHC RDW Std Deviation RDW Coeff of Dior Plt Count MPV Immature Gran % (Auto) Neut % (Auto) Lymph % (Auto) [place] % (Auto) Eos % (Auto) Baso % (Auto) Neut # (Auto) Lymph # (Auto) [place] # (Auto) Eos # (Auto) Baso # (Auto) Immature Gran # (Auto) Polychromasia Echinocytes PT INR APTT PTT Ratio Sodium Potassium Chloride Carbon Dioxide Anion Gap BUN Creatinine Est Cr Clr Drug Dosing Est GFR ( Amer) Est GFR (Non-Af Amer) BUN/Creatinine Ratio Glucose POC Glucose Lactate Calcium Magnesium Total Bilirubin AST ALT Alkaline Phosphatase Troponin I High Sens Total Protein Albumin Globulin Albumin/Globulin Ratio Urine Color Dark Yellow Urine Appearance Cloudy A Urine pH 5.5 Ur Specific [place] 1.010 Urine Protein 1+ H Urine Glucose (UA) Negative Urine Ketones Negative Urine Blood 3+ H Urine Nitrite Negative Urine Bilirubin Negative Urine Urobilinogen Negative Ur Leukocyte Esterase 2+ H Urine WBC (Auto) >30 H Urine RBC (Auto) 5-10 H U Hyaline Cast (Auto) 5-10 H U Epithel Cells (Auto) >30 H Urine Bacteria (Auto) 3+ H Urine Yeast Not Reportable SARS-CoV-2 (PCR) NEGATIVE Diagnostic Findings Chest X-Ray 11/22/21 10:08 XR chest 1V portable CLINICAL HISTORY: SEPSIS COMPARISON STUDY: Chest radiograph November 24, 2019. FINDINGS: Lung volumes are normal. Obscuration of the left hemidiaphragm is noted. There is no pneumothorax or pleural effusion. Cardiac size is normal. Mediastinal contours are normal. There is no evidence for pulmonary edema. IMPRESSION: Obscuration of the left hemidiaphragm. This is probably artifactual although left lower lobe consolidation would be difficult to exclude. ACT 112: Negative or not required by law. Electronically signed by: Jai Kaplan M.D. 11/22/2021 10:[address] 11/22/21 10:[address] DOSE: 846.33 mGy.cm HISTORY: Headache. TECHNIQUE: Multiaxial CT images of the head were performed without the use of intravenous contrast. Automated exposure control was utilized for this study. A dose lowering technique was utilized adhering to the principles of ALARA. Comparison: None. Findings: The paranasal sinuses and mastoid air cells are clear. The calvarium and skull base are intact. There is no mass, hematoma, midline shift, acute infarct. White matter hypodensity is nonspecific but suggestive of microvascular ischemic change. The ventricles and sulci demonstrate mild age-related involutional changes. Impression: No acute intracranial abnormality. Atrophy and microvascular ischemic changes. ACT 112: Negative or not required by law. Electronically signed by: Dewayne Javier M.D. 11/22/2021 11:27 AM Abdomen/Pelvis CT 11/22/21 10:10 CT OF THE ABDOMEN AND PELVIS WITHOUT CONTRAST CLINICAL HISTORY: diarrhea x 4 days contrast allx COMPARISON STUDY: Pelvic ultrasound May 25, 2020. CT of the abdomen and pelvis March 16, 2020. TECHNIQUE: Axial images of the abdomen and pelvis were obtained without IV contrast. Images were reviewed in the axial, sagittal, and coronal planes. Automated exposure control was utilized for the study. A dose lowering techniq ue was utilized adhering to the principles of ALARA. FINDINGS: Lung bases are unremarkable. No pneumatosis, free air or portal venous gas is present. There is probable hepatic steatosis. There are gallstones within the gallbladder. No pericholecystic fluid is present. No biliary or pancreatic ductal dilatation is identified on this unenhanced examination. Unenhanced images of the spleen, adrenal glands and pancreas are unremarkable with exception of pancreatic calcifications. No peripancreatic or pericholecystic stranding is present. No urinary calculi are present. There is no hydronephr osis. Note is made of mild left perinephric stranding. There is also stranding adjacent to the bladder. Bladder wall thickening is noted. Stranding adjacent to the descending colon is most likely related to the left kidney. No colonic wall thickening is noted on unenhanced exam. There is chronic diverticulosis without evidence for acute diverticulitis. Appendix is normal. Prominent retroperitoneal lymph nodes are unchanged. The uterus is prominent. Although suboptimally assessed by CT, this is unchanged. IMPRESSION: 1. Left perinephric stranding. This is nonspecific but raises the possibility of an infectious process such as pyelonephritis. Bladder wall thickening with adjacent infiltration. Findings could be correlated with urinalysis. 2. No urinary calculi or hydronephrosis. 3. Cholelithiasis. 4. Stranding adjacent to the descending colon. This is likely related to the left renal process. However, a nonspecific colitis or diverticulitis would be difficult to completely exclude. No bowel wall thickening. No abscess. ACT 112: Negative or not required by law. Electronically signed by: Jai Kaplan M.D. 11/22/2021 11:26 AM US gallbladder HISTORY: 75 years-old Female tenderness hx of stone acute right upper quadrant abdominal pain COMPARISON: CT 11/22/2021 TECHNIQUE: Multiple real-time sonographic images of the abdominal right upper quadrant were obtained grayscale appearance and color flow FINDINGS: Pancreas is mostly obscured by bowel gas. There is increased echogenicity with heterogeneity of the liver suggestive of hepatic steatosis. No hepatic mass identified. Normal common bile duct measures 6 mm. Layering cholelithiasis. No gallbladder wall thickening or pericholecystic fluid. The sonographic Tovar sign was not reported. The imaged right kidney is unremarkable without hydronephrosis. IMPRESSION: 1. Cholelithiasis without sonographic evidence of acute cholecystitis. 2. Hepatic steatosis. Medications Administered Home Medications blood-glucose meter,continuous (Dexcom G6 Database Report Writer) #1 ea 10/20/20 [History Confirmed 11/22/21] blood-glucose sensor (Dexcom G6 Sensor) #3 ea 10/20/20 [History Confirmed 11/22/21] blood-glucose transmitter (Dexcom G6 Transmitter) #1 ea 10/20/20 [History Confirmed 11/22/21] cholecalciferol (vitamin D3) 25 mcg (1,000 unit) capsule 25 mcg PO DAILY 10/20/20 [History Confirmed 11/22/21] pravastatin 10 mg tablet 10 mg PO .COMPLEX #30 tabs 02/06/21 [Rx Confirmed 11/22/21] pen needle, diabetic 32 gauge x 5/32" (BD Ultra-Fine Fela Pen Needle) #500 ea 03/15/21 [Rx Confirmed 11/22/21] hydrochlorothiazide 25 mg tablet 25 mg PO DAILY #90 tabs 05/07/21 [Rx Confirmed 11/22/21] omeprazole 40 mg capsule,delayed release 40 mg PO DAILY #90 caps 05/07/21 [Rx Confirmed 11/22/21] insulin lispro 100 unit/mL subcutaneous pen (Humalog KwikPen (U-100) Insulin) 150 unit (1.5 mL) subcut .COMPLEX #135 mL 05/10/21 [Rx Confirmed 11/22/21] losartan 100 mg tablet 100 mg PO DAILY #90 tabs 06/22/21 [Rx Confirmed 11/22/21] insulin glargine U-300 conc 300 unit/mL (1.5 mL) subcutaneous pen (Toujeo SoloStar U-300 Insulin) 53 unit (0.1767 mL) subcut HS #18 mL 08/02/21 [Rx Confirmed 11/22/21] Active Medications Sodium Chloride (Nss 1000ml) 1,000 mls @ 150 mls/hr IV .Q6H40M GAUTAM Stop: 12/22/21 12:14 Magnesium Sulfate 4 gm/ Sodium (Chloride) 1,008 mls @ 100 mls/hr IV .Q10H5M GAUTAM Stop: 11/22/21 23:04 Last Admin: 11/22/21 13:32 Dose: 100 mls/hr Magnesium Sulfate 4 gm/ Sodium (Chloride) 1,008 mls @ 100 mls/hr IV .Q10H5M GAUTAM Stop: 11/22/21 23:04 Last Admin: 11/22/21 13:32 Dose: 100 mls/hr Documented By: TLF Discontinued Medications Sodium Chloride (Nss 1000ml) 1,000 mls @ 999 mls/hr IV .Q1H1M GAUTAM Stop: 11/22/21 11:08 Last Infusion: 11/22/21 11:25 Dose: 0 mls/hr Documented By: Admin: 11/22/21 10:20 Dose: 999 mls/hr Documented By: LUCIO Sodium Chloride (Nss 1000ml) 1,000 mls @ 999 mls/hr IV .Q1H1M ONE Stop: 11/22/21 12:06 Last Infusion: 11/22/21 12:28 Dose: 0 mls/hr Documented By: Admin: 11/22/21 11:26 Dose: 999 mls/hr Documented By: CALE Ceftriaxone Sodium (Rocephin) 2,000 mg in 70 mls @ 140 mls/hr IV NOW STA Stop: 11/22/21 12:16 Last Infusion: 11/22/21 12:46 Dose: 0 mls/hr Documented By: Admin: 11/22/21 12:15 Dose: 140 mls/hr Documented By: OL ECG Additional Comments: Sinus rhythm with Premature atrial complexes and Premature ventricular complexes or Fusion complexes Otherwise normal ECG When compared with ECG of 24-NOV-2019 09:22, Fusion complexes are now Present Premature ventricular complexes are now Present Premature atrial complexes are now Present Code Status & VTE Plan Code Status CODE: FULL VTE: SCDS, Heparin 5000 units sub q q12 VTE Prophylaxis Plan VTE Prophylaxis will be ordered: Yes Supervising Physician Co-Signing Physician Notes I supervised MUMTAZ García on this admission. I interviewed and examined the patient independently of him. The plan is as written in his note except for any following changes/exceptions: None 75yo F w/ hx of HTN, DM who presents with sepsis, dehydration, and RODNEY. Likely kidney source. Started abx. Follow cultures. PG Care Time/CCT Total # of Minutes Spent Total Time Spent with Patient: Total time spent is greater than 50% in coordination of care (as documented) at patient's floor/unit and/or counseling patient: Coding Level of Care Code 21419 Initial Inpt Care Lvl 3 Diagnoses Sepsis A41.9 Acute kidney injury N17.9 UTI (urinary tract infection) N39.0 Diarrhea R19.7 Type 1 diabetes mellitus with diabetic retinopathy E10.319 Pancreatic cyst K86.2 Gallstones K80.20 Hypertension I10 Acid reflux K21.9 Obesity (BMI 30-39.9) E66.9 Dyslipidemia E78.5 Solitary thyroid nodule E04.1
[2021-11-22 14:38] LABS: Base Excess VBG -4.9 mEq/L; HCO3 VBG 21 mmol/L; Oxygen Saturation VBG < 60.0 %; PCO2 VBG 39 mmHg (38-50); PO2 VBG 17 mmHg; pH VBG 7.33 (7.36-7.41)
--- NOTE | 2021-11-22 14:48 | Ultrasound Report ---
US gallbladder HISTORY: 75 years-old Female tenderness hx of stone acute right upper quadrant abdominal pain COMPARISON: CT 11/22/2021 TECHNIQUE: Multiple real-time sonographic images of the abdominal right upper quadrant were obtained grayscale appearance and color flow FINDINGS: Pancreas is mostly obscured by bowel gas. There is increased echogenicity with heterogeneity of the l iver suggestive of hepatic steatosis. No hepatic mass identified. Normal common bile duct measures 6 mm. Layering cholelithiasis. No gallbladder wall thickening or pericholecystic fluid. The sonographic Tovar sign was not reported. The imaged right kidney is unremarkable without hydronephrosis. IMPRESSION: 1. Cholelithiasis without sonographic evidence of acute cholecystitis. 2. Hepatic steatosis. ACT 112: Negative or not required by law. The above report was generated using voice recognition software. It may contain grammatical, syntax o r spelling errors. Electronically signed by: Jeffrey Harper M.D. 11/22/2021 2:46 PM
[2021-11-22] MEDS ORDERED: GLUCOSE 10 TAB/TUBE PO PRN (15:18)
[2021-11-22] MEDS ORDERED: GLUCAGON FOR INJ 1 MG VIAL SQ PRN (15:18)
[2021-11-22] MEDS ORDERED: CARBOHYDRATES FOR HYPOGLYCEMIA PO PRN (15:18)
[2021-11-22] MEDS ORDERED: GLUCOSE 40% GEL 15 GM TUBE PO PRN (15:18)
[2021-11-22] MEDS ORDERED: DEXTROSE 50% 50 ML SYRINGE IV PRN (15:18)
[2021-11-22] MEDS: INSULIN ASPART PER UNIT SC SCH ×2 (16:29→21:45)
[2021-11-22] MEDS ORDERED: LACTATED RINGER'S 500 ML IV ONE (16:58)
--- NOTE | 2021-11-22 17:40 | Electrocardiogram Report ---
Test Reason : Blood Pressure : / mmHG Vent. Rate : 093 BPM Atrial Rate : 093 BPM P-R Int : 178 ms QRS Dur : 092 ms QT Int : 392 ms P-R-T Axes : 059 -02 055 degrees QTc Int : 487 ms Sinus rhythm with Premature atrial complexes and Premature ventricular complexes or Fusion complexes Otherwise normal ECG When compared with ECG of 24-NOV-2019 09:22, Fusion complexes are now Present Premature ventricular complexes are now Present Premature atrial complexes are now Present Confirmed by Nawaf Sanford ([id number]) on 11/22/2021 5:39:58 PM Referred By: Td Foster Confirmed By:Nawaf Sanford
--- NOTE | 2021-11-22 18:53 | Nephrology Consultation ---
Date of Consultation November 22, 2021 Assessment & Plan (1) Acute kidney injury: Prerenal with possible ATN. Non-oliguric. Electrolytes acceptable. No emergent indication for dialysis. CT demonstrates no evidence of obstruction. Urine studies suggestive of possible UTI - culture pending. Medications, including Rocephin appropriately dosed for kidney dysfunction. Document strict I/O's. Repeat metabolic profile tomorrow AM. (2) Metabolic acidosis: NAGMA associated with kidney dysfunction and diarrhea. Once NSS infusion complete, convert to HCO3 containing IVF. (3) Hypertension: Hypotensive on arrival in the setting of dehydration. HCTZ and losartan held. BP improving. (4) Stage III chronic kidney disease: CKD III A1-2. Baseline creatinine 1.3-1.6 mg/dL. CKD attributed to DKD. Medications appropriately dosed for kidney dysfunction. History of Present Illness Reason for Consultation: RODNEY/CKD Requesting Physician: Jovany Calderon MD Attending Physician: Jovany Calderon MD History of Present Illness Mrs. Anamaria Deshpande is a 75 year-old female with chronic kidney disease who I follow in the outpatient clinic. Anamaria has CKD III attributed to DKD. Baseline creatinine has been 1.3 -1.6 mg/dL. She has A1-2 proteinuria quantified at <0.3 g/g on random assessment. Kidneys have been normal on imaging. Fairly recent history includes gross hematuria after starting Xarelto for superficial thrombosis of the lower extremity. Urine cytology did not demonstrate any concerning malignant cells. Initial cystoscopy demonstrated a concerning area for which follow up cystoscopy with biopsy was then completed.Biopsy findings were consistent with chronic cystitis with reactive urothelial cells.Notable hematuria persisted following the procedure.A follow up CT demonstrated a couple of bilateral cysts noted with some change from prior US and CT which is suspicious for hemorrhage. Anamaria underwent a follow up evaluation with urology at [facility]. This included cystoscopy but intended pyelogram was not able to be completed. Thankfully, urinary symptoms had seemed to resolve. Anamaria was doing well at home until Friday which she started to develop loose and frequent bowel movements. Diarrhea has persistent with fevers (Tmax 102 at home), and decreased oral intake. She presented to the ER with fatigue, myalgias, persistent diarrhea and an episode of right flank pain. Anamaria had remained on her home Rx's including HCTZ and losartan. Evaluation in the ER notable for a serum creatinine of 5 mg/dL. HCO3 17. Electrolytes acceptable. CT of the abdomen and pelvis demonstrating thinking of the bladder wall and stranding adjacent to the descending colon. No hydronephrosis appreciated. Urine studies demonstrating 1+ protein, 3+ blood, +LE, >30 WBC. 5-10 RBC, and 5- 10 hyaline casts. NSS x 2.5 L provided in the ER, as well as 2 gram Rocephin. Medical history is also notable for obesity, hypertension, dyslipidemia, thyroid nodule, and pancreatic calcifications with dilation of the pancreatic duct. Allergies Allergy/AdvReac Type Severity Reaction Status Date / Time Iodinated Contrast Media Allergy Mild Unknown Verified 11/22/21 12:12 iodine Allergy Mild Unknown Verified 11/22/21 12:12 apixaban [From Eliquis] AdvReac Mild Hives Verified 11/22/21 12:12 atorvastatin AdvReac Mild leg cramps Verified 11/22/21 12:12 rosuvastatin AdvReac Mild leg cramps Verified 11/22/21 12:12 simvastatin AdvReac Mild leg cramps Verified 11/22/21 12:12 Home Medications Medication Instructions Recorded Confirmed Type blood-glucose meter,continuous #1 ea 10/20/20 11/22/21 History (Dexcom G6 Geoduck Diver) blood-glucose sensor (Dexcom G6 #3 ea 10/20/20 11/22/21 History Sensor) blood-glucose transmitter (Dexcom #1 ea 10/20/20 11/22/21 History G6 Transmitter) cholecalciferol (vitamin D3) 25 25 mcg PO DAILY 10/20/20 11/22/21 History mcg (1,000 unit) capsule pravastatin 10 mg tablet 10 mg PO .COMPLEX #30 tabs 02/06/21 11/22/21 Rx pen needle, diabetic 32 gauge x #500 ea 03/15/21 11/22/21 Rx 5/32" (BD Ultra-Fine Fela Pen Needle) hydrochlorothiazide 25 mg tablet 25 mg PO DAILY #90 tabs 05/07/21 11/22/21 Rx omeprazole 40 mg capsule,delayed 40 mg PO DAILY #90 caps 05/07/21 11/22/21 Rx release insulin lispro 100 unit/mL 150 unit (1.5 mL) subcut .COMPLEX 05/10/21 11/22/21 Rx subcutaneous pen (Humalog KwikPen #135 mL (U-100) Insulin) losartan 100 mg tablet 100 mg PO DAILY #90 tabs 06/22/21 11/22/21 Rx insulin glargine U-300 conc 300 53 unit (0.1767 mL) subcut HS #18 08/02/21 11/22/21 Rx unit/mL (1.5 mL) subcutaneous pen mL (Toujeo SoloStar U-300 Insulin) Patient History Medical History Acid reflux Stable and controlled - does have increased secretions at times. Benavides esophagus Cough Chronic x one year- stable- secondary to allergies DVT (deep venous thrombosis) june 2019 > right leg > from low activity levels > xarelto Dyslipidemia Hypertension Osteoporosis Solitary thyroid nodule just monitoring Stage III chronic kidney disease sees Dr. 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 Glucose stable Type 1 diabetes mellitus, uncontrolled Surgical History H/O cataract extraction bilat History of adenoidectomy History of bilateral oophorectomy History of biopsy of bladder History of colonoscopy History of dilatation and curettage History of esophagogastroduodenoscopy (EGD) History of ligation of vein bilat legs History of resection of small bowel over 50 yrs ago History of tonsillectomy History of tooth extraction Hx of biopsy pancreas> cysts are benign Hx of oophorectomy left Family History Father Cardiovascular disease COPD (chronic obstructive pulmonary disease) Family history of cerebrovascular accident Myocardial infarction Stroke Mother Cardiovascular disease Family history of diabetes mellitus Hypertension Family history of cerebrovascular accident Stroke Sister Family history of coronary artery disease Family/Other Ovarian cancer Denies family history of Prostate cancer Breast cancer Colorectal cancer Social History Smoking Status: Never smoker Second Hand Exposure: Yes (as kid); Hx Alcohol Use: No Hx Substance Use: No Preferred Language: Nepalese Communication Ability: Effective Visual Impairment: No Limitations Hearing Ability: Normal Elevator Adjuster Required: No Beliefs That Will Affect Care: None marital status: Current Living Situation: Spouse current occupational status: retired How many Children do You have: 3 How many Children do You have Comment: 1 girl 2 boy Other Information That Helps Us Care for You: No Feels Safe at Home: Yes Safety Concerns: Feels Safe At This Time Childhood Exposure to Second-Hand Smoke: Yes during the past year weight has: remained stable Dental Care, Regularly: Yes Physical Activity Frequency: Daily Seatbelt Use: always Sunscreen Use: Yes Assistive Devices: Glasses Review of Systems Review of Systems: All systems reviewed & are unremarkable except as noted in HPI & below Physical Exam Constitutional: well developed; no acute distress Eyes: no scleral abnormality and no corneal abnormality ENMT: Mouth: no oral mucosal abnormality and oral mucous membranes not dry Neck: normal visual inspection and trachea midline Respiratory: normal respiratory effort Auscultation: lungs clear to auscultation bilaterally Cardiovascular: Rate/Rhythm: regular rate Heart Sounds: normal S1 and normal S2 Extremities: no edema Musculoskeletal: Extremities: no cyanosis and no clubbing Skin: normal turgor; no lesions Neurologic: Motor/Sensory: no tremor and no asterixis Psychiatric: Orientation: alert and oriented x 3 Results & Data ([facility]) Vital Signs (Past 12 Hours) Vital Signs Temp Pulse Pulse Resp BP BP Pulse Ox 11/22/21 18:50 37.2 C 110 H 17 159/62 H 96 11/22/21 17:01 109 H 22 170/76 H 94 11/22/21 15:46 114 H 30 H 170/78 H 94 11/22/21 15:40 11/22/21 15:40 114 H 30 H 170/78 H 97 11/22/21 15:18 11/22/21 14:00 87 18 106/64 96 11/22/21 12:00 92 H 18 131/65 96 11/22/21 11:24 90 20 129/64 97 11/22/21 10:53 87 18 136/60 96 11/22/21 10:38 98 H 16 136/60 96 11/22/21 10:20 95 11/22/21 10:20 95 H 16 108/60 95 11/22/21 10:00 36.7 C 94 H 18 75/47 L 96 Pulse Ox O2 Del Method O2 Del Method 11/22/21 18:50 Room Air 11/22/21 17:01 Room Air 11/22/21 15:46 Room Air 11/22/21 15:40 96 Room Air 07/28/22 15:40 Room Air 11/22/21 15:18 Room Air 11/22/21 14:00 Room Air 11/22/21 12:00 Room Air 11/22/21 11:24 Room Air 11/22/21 10:53 Room Air 11/22/21 10:38 Room Air 11/22/21 10:20 Room Air 11/22/21 10:20 Room Air 11/22/21 10:00 Room Air Laboratory Results Laboratory Results - last 24 hr 11/22/21 11/22/21 11/22/21 10:15 10:15 10:15 WBC 14.06 H RBC 4.34 Hgb 13.9 Hct 39.3 MCV 90.6 MCH 32.0 MCHC 35.4 RDW Std Deviation 44.3 RDW Coeff of Dior 13.3 Plt Count 166 MPV 10.4 Immature Gran % (Auto) 1.4 Neut % (Auto) 89.0 Lymph % (Auto) 5.2 Pike % (Auto) 3.3 Eos % (Auto) 0.4 Baso % (Auto) 0.7 Neut # (Auto) 12.50 H Lymph # (Auto) 0.73 L Pike # (Auto) 0.47 Eos # (Auto) 0.06 Baso # (Auto) 0.10 Immature Gran # (Auto) 0.20 H Polychromasia 1+ Echinocytes 1+ ESR PT Cancelled INR Cancelled APTT Cancelled PTT Ratio Cancelled VBG pH VBG pCO2 VBG pO2 VBG HCO3 VBG O2 Saturation VBG Base Excess Sodium 132 L Potassium 3.6 Chloride 97 L Carbon Dioxide 17 L Anion Gap 18 H BUN 56 H Creatinine 5.12 H* Est Cr Clr Drug Dosing 10.9 Est GFR ( Amer) 8.8 Est GFR (Non-Af Amer) 7.6 BUN/Creatinine Ratio 10.9 Glucose 169 H POC Glucose Lactate Calcium 9.1 Magnesium 1.2 L Total Bilirubin 2.5 H AST 40 H ALT 22 Alkaline Phosphatase 115 H Troponin I High Sens 13.1 C-Reactive Protein Total Protein 6.7 Albumin 3.3 L Globulin 3.4 Albumin/Globulin Ratio 1.0 Procalcitonin Urine Color Urine Appearance Urine pH Ur Specific [place] Urine Protein Urine Glucose (UA) Urine Ketones Urine Blood Urine Nitrite Urine Bilirubin Urine Urobilinogen Ur Leukocyte Esterase Urine WBC (Auto) Urine RBC (Auto) U Hyaline Cast (Auto) U Epithel Cells (Auto) Urine Bacteria (Auto) Urine Yeast SARS-CoV-2 (PCR) 11/22/21 11/22/21 11/22/21 10:15 10:15 10:28 WBC RBC Hgb Hct MCV MCH MCHC RDW Std Deviation RDW Coeff of Dior Plt Count MPV Immature Gran % (Auto) Neut % (Auto) Lymph % (Auto) [place]ike % (Auto) Eos % (Auto) Baso % (Auto) Neut # (Auto) Lymph # (Auto) Pike # (Auto) Eos # (Auto) Baso # (Auto) Immature Gran # (Auto) Polychromasia Echinocytes ESR 68 H PT INR APTT PTT Ratio VBG pH VBG pCO2 VBG pO2 VBG HCO3 VBG O2 Saturation VBG Base Excess Sodium Potassium Chloride Carbon Dioxide Anion Gap BUN Creatinine Est Cr Clr Drug Dosing Est GFR ( Amer) Est GFR (Non-Af Amer) BUN/Creatinine Ratio Glucose POC Glucose 175 H Lactate 4.0 H* Calcium Magnesium Total Bilirubin AST ALT Alkaline Phosphatase Troponin I High Sens C-Reactive Protein Total Protein Albumin Globulin Albumin/Globulin Ratio Procalcitonin Urine Color Urine Appearance Urine pH Ur Specific [place] Urine Protein Urine Glucose (UA) Urine Ketones Urine Blood Urine Nitrite Urine Bilirubin Urine Urobilinogen Ur Leukocyte Esterase Urine WBC (Auto) Urine RBC (Auto) U Hyaline Cast (Auto) U Epithel Cells (Auto) Urine Bacteria (Auto) Urine Yeast SARS-CoV-2 (PCR) 11/22/21 11/22/21 11/22/21 10:54 11:35 12:20 WBC RBC Hgb Hct MCV MCH MCHC RDW Std Deviation RDW Coeff of Dior Plt Count MPV Immature Gran % (Auto) Neut % (Auto) Lymph % (Auto) [place]ike % (Auto) Eos % (Auto) Baso % (Auto) Neut # (Auto) Lymph # (Auto) [place]ike # (Auto) Eos # (Auto) Baso # (Auto) Immature Gran # (Auto) Polychromasia Echinocytes ESR PT 12.4 H INR 1.2 H APTT 32.5 H PTT Ratio 1.2 VBG pH VBG pCO2 VBG pO2 VBG HCO3 VBG O2 Saturation VBG Base Excess Sodium Potassium Chloride Carbon Dioxide Anion Gap BUN Creatinine Est Cr Clr Drug Dosing Est GFR ( Amer) Est GFR (Non-Af Amer) BUN/Creatinine Ratio Glucose POC Glucose Lactate Calcium Magnesium Total Bilirubin AST ALT Alkaline Phosphatase Troponin I High Sens C-Reactive Protein Total Protein Albumin Globulin Albumin/Globulin Ratio Procalcitonin Urine Color Dark Yellow Urine Appearance Cloudy A Urine pH 5.5 Ur Specific [place] 1.010 Urine Protein 1+ H Urine Glucose (UA) Negative Urine Ketones Negative Urine Blood 3+ H Urine Nitrite Negative Urine Bilirubin Negative Urine Urobilinogen Negative Ur Leukocyte Esterase 2+ H Urine WBC (Auto) >30 H Urine RBC (Auto) 5-10 H U Hyaline Cast (Auto) 5-10 H U Epithel Cells (Auto) >30 H Urine Bacteria (Auto) 3+ H Urine Yeast Not Reportable SARS-CoV-2 (PCR) NEGATIVE 11/22/21 11/22/21 11/22/21 14:27 14:27 14:27 WBC RBC Hgb Hct MCV MCH MCHC RDW Std Deviation RDW Coeff of Dior Plt Count MPV Immature Gran % (Auto) Neut % (Auto) Lymph % (Auto) Pike % (Auto) Eos % (Auto) Baso % (Auto) Neut # (Auto) Lymph # (Auto) Pike # (Auto) Eos # (Auto) Baso # (Auto) Immature Gran # (Auto) Polychromasia Echinocytes ESR PT INR APTT PTT Ratio VBG pH VBG pCO2 VBG pO2 VBG HCO3 VBG O2 Saturation VBG Base Excess Sodium Potassium Chloride Carbon Dioxide Anion Gap BUN Creatinine Est Cr Clr Drug Dosing Est GFR ( Amer) Est GFR (Non-Af Amer) BUN/Creatinine Ratio Glucose POC Glucose Lactate 2.4 H* Calcium Magnesium Total Bilirubin AST ALT Alkaline Phosphatase Troponin I High Sens C-Reactive Protein 29.05 H Total Protein Albumin Globulin Albumin/Globulin Ratio Procalcitonin 21.39 H Urine Color Urine Appearance Urine pH Ur Specific [place] Urine Protein Urine Glucose (UA) Urine Ketones Urine Blood Urine Nitrite Urine Bilirubin Urine Urobilinogen Ur Leukocyte Esterase Urine WBC (Auto) Urine RBC (Auto) U Hyaline Cast (Auto) U Epithel Cells (Auto) Urine Bacteria (Auto) Urine Yeast SARS-CoV-2 (PCR) 11/22/21 11/22/21 11/22/21 14:27 16:15 16:23 WBC RBC Hgb Hct MCV MCH MCHC RDW Std Deviation RDW Coeff of Dior Plt Count MPV Immature Gran % (Auto) Neut % (Auto) Lymph % (Auto) Pike % (Auto) Eos % (Auto) Baso % (Auto) Neut # (Auto) Lymph # (Auto) Pike # (Auto) Eos # (Auto) Baso # (Auto) Immature Gran # (Auto) Polychromasia Echinocytes ESR PT INR APTT PTT Ratio VBG pH 7.33 L VBG pCO2 39 VBG pO2 17 VBG HCO3 21 VBG O2 Saturation < 60.0 VBG Base Excess -4.9 Sodium Potassium Chloride Carbon Dioxide Anion Gap BUN Creatinine Est Cr Clr Drug Dosing Est GFR ( Amer) Est GFR (Non-Af Amer) BUN/Creatinine Ratio Glucose POC Glucose 133 H Lactate 3.7 H* Calcium Magnesium Total Bilirubin AST ALT Alkaline Phosphatase Troponin I High Sens C-Reactive Protein Total Protein Albumin Globulin Albumin/Globulin Ratio Procalcitonin Urine Color Urine Appearance Urine pH Ur Specific [place] Urine Protein Urine Glucose (UA) Urine Ketones Urine Blood Urine Nitrite Urine Bilirubin Urine Urobilinogen Ur Leukocyte Esterase Urine WBC (Auto) Urine RBC (Auto) U Hyaline Cast (Auto) U Epithel Cells (Auto) Urine Bacteria (Auto) Urine Yeast SARS-CoV-2 (PCR) Diagnostic Findings CT abdomen and pelvis: FINDINGS: Lung bases are unremarkable. No pneumatosis, free air or portal venous gas is present. There is probable hepatic steatosis. There are gallstones within the gallbladder. No pericholecystic fluid is present. No biliary or pancreatic ductal dilatation is identified on this unenhanced examination. Unenhanced images of the spleen, adrenal glands and pancreas are unremarkable with exception of pancreatic calcifications. No peripancreatic or pericholecystic stranding is present. No urinary calculi are present. There is no hydronephrosis. Note is made of mild left perinephric stranding. There is also stranding adjacent to the bladder. Bladder wall thickening is noted. Stranding adjacent to the descending colon is most likely related to the left kidney. No colonic wall thickening is noted on unenhanced exam. There is chronic diverticulosis without evidence for acute diverticulitis. Appendix is normal. Prominent retroperitoneal lymph nodes are unchanged. The uterus is prominent. Although suboptimally assessed by CT, this is unchanged. IMPRESSION: 1. Left perinephric stranding. This is nonspecific but raises the possibility of an infectious process such as pyelonephritis. Bladder wall thickening with adjacent infiltration. Findings could be correlated with urinalysis. 2. No urinary calculi or hydronephrosis. 3. Cholelithiasis. 4. Stranding adjacent to the descending colon. This is likely related to the left renal process. However, a nonspecific colitis or diverticulitis would be difficult to completely exclude. No bowel wall thickening. No abscess. PG Care Time/CCT Total # of Minutes Spent Total Time Spent with Patient: Total time spent is greater than 50% in coordination of care (as documented) at patient's floor/unit and/or counseling patient: Coding Level of Care Code 89994 Inpt Consult Level 4 Diagnoses Acute kidney injury N17.9 Metabolic acidosis E87.2 Hypertension I10 Stage III chronic kidney disease N18.3
[2021-11-22 19:47] LABS: BUN Creatinine Ratio 13.5 (10-20); Calcium 8.2 mg/dl (8.5-10.1); Creatinine Clr Calc Pharmacy 14.6 ml/min; Est GFR (African American) 12.5 ml/min; Est GFR (Non-African American) 10.7 ml/min; Potassium 3.4 mmol/L (3.5-5.1)
[2021-11-22] MEDS ORDERED: LANTUS PER UNIT CHARGE SQ SCH (21:00)
[2021-11-22] MEDS: ACETAMINOPHEN 325 MG TAB PO PRN (21:44)
[2021-11-22] MEDS: PANTOprazole 40 MG in SYRINGE 0 ML IV SCH (21:45)
[2021-11-22] MEDS: HEPARIN SOD 5,000 UNIT/0.5 ML VIAL SQ SCH (21:45)
[2021-11-22] MEDS: LANTUS PER UNIT CHARGE SQ SCH (22:45)
[2021-11-22] MEDS: SODIUM BICARBONATE 8.4% 150 MEQ in WATER, STERILE 1,000 ML IV SCH (22:59)
[2021-11-23 00:18] LABS: A calco-baum cmplx NotReported Not Detected (NotDetected); Bact fragilis Not Reported Not Detected (NotDetected); C auris Not Reported Not Detected (NotDetected); CTX-M Resistant Gene Not Detected (NotDetected); Calbicans Not Reported Not Detected (NotDetected); Candida glabrata Not Reported Not Detected (NotDetected); Candida krusei Not Reported Not Detected (NotDetected); Cneoformans/gatti Not Reported Not Detected (NotDetected); Cparapsilosis Not Reported Not Detected (NotDetected); Ctropicalis Not Reported Not Detected (NotDetected); E cloacae compx Not Reported Not Detected (NotDetected); Efaecalis Not Reported Not Detected (NotDetected); Efaecium Not Reported Not Detected (NotDetected); Enterobacterales DETECTED (NotDetected); Enterobacterales Not Reported DETECTED (NotDetected); Escherichia coli Not Reported DETECTED (NotDetected); H influenzae Not Reported Not Detected (NotDetected); IMP Resistant Gene Not Detected (NotDetected); K aerogenes Not Reported Not Detected (NotDetected); KPC Resistant Gene Not Detected (NotDetected); Koxytoca Not Reported Not Detected (NotDetected); Kpneumoniae grp Not Reported Not Detected (NotDetected); Lmonocyt Not Reported Not Detected (NotDetected); N meningitidis Not Reported Not Detected (NotDetected); NDM Resistant Gene Not Detected (NotDetected); OXA 48 Like Resistant Gene Not Detected (NotDetected); P aeruginosa Not Reported Not Detected (NotDetected); Proteus spp Not Reported Not Detected (NotDetected); Salmonella spp Not Reported Not Detected (NotDetected); Smarcescens Not Reported Not Detected (NotDetected); Staph lugdunensis Not Reported Not Detected (NotDetected); Staph spp. Not Reported Not Detected (NotDetected); Staphaureus Not Reported Not Detected (NotDetected); Staphepi Not Reported Not Detected (NotDetected); Stenmaltophilia Not Reported Not Detected (NotDetected); Strep agal(GrpB) Not Reported Not Detected (NotDetected); Strep pneum Not Reported Not Detected (NotDetected); Strep pyog (GrpA) Not Reported Not Detected (NotDetected); Strep spp Not Reported Not Detected (NotDetected); VIM Resistant Gene Not Detected (NotDetected); mcr-1 Colistin Resistant Gene Not Detected (NotDetected)
[2021-11-23] MEDS ORDERED: VANCOMYCIN CONSULT ACTIVE PRN (00:37)
[2021-11-23] MEDS: CEFEPIME 2,000 MG in SYRINGE 0 ML IV SCH (00:57)
[2021-11-23] MEDS ORDERED: VANCOMYCIN HCL 2,000 MG in SODIUM CHLORIDE 0.9% 500 ML IV ONE (01:00)
[2021-11-23 03:13] LABS: Adenovirus F 40/41 PCR Not Detected (NotDetected); Astrovirus PCR Not Detected (NotDetected); Campylobacter PCR Not Detected (NotDetected); Clostridium diff Toxin A/B PCR Not Detected (NotDetected); Cryptosporidium PCR Not Detected (NotDetected); Cyclospora cayetanensis PCR Not Detected (NotDetected); Entamoeba histolytica PCR Not Detected (NotDetected); Enteroaggregative E.coli(EAEC) Not Detected (NotDetected); Enteropathogenic E.coli (EPEC) Not Detected (NotDetected); Enterotoxigenic E.coli (ETEC) Not Detected (NotDetected); Giardia lamblia PCR Not Detected (NotDetected); Norovirus GI/GII PCR Not Detected (NotDetected); Plesiomonas shigelloides PCR Not Detected (NotDetected); Rotavirus A PCR Not Detected (NotDetected); Salmonella PCR Not Detected (NotDetected); Sapovirus PCR Not Detected (NotDetected); Shiga-like Toxin E.coli (STEC) Not Detected (NotDetected); Shigella/Enteroinvasive E.coli Not Detected (NotDetected); Vibrio cholerae PCR Not Detected (NotDetected); Vibrio species PCR Not Detected (NotDetected); Yersinia enterocolitica PCR Not Detected (NotDetected)
[2021-11-23] MEDS: ACETAMINOPHEN 325 MG TAB PO PRN ×4 (03:41→23:56)
[2021-11-23 05:55] LABS: INR 1.1 (0.9-1.1); Prothrombin Time 11.7 Seconds (9.0-12.0)
[2021-11-23 06:11] LABS: Albumin Level 2.6 gm/dl (3.4-5.0); Bilirubin,Total 1.7 mg/dl (0.2-1.0); Calcium 7.7 mg/dl (8.5-10.1); Creatinine Clr Calc Pharmacy 18.3 ml/min; Est GFR (African American) 15.5 ml/min; Est GFR (Non-African American) 13.3 ml/min; Hematocrit (blood only) 30.7 % (34.1-44.9); Hemoglobin 10.8 g/dl (12.0-16.0); Magnesium 1.4 mg/dl (1.7-2.4); Mean Corpuscular Hemoglobin 31.6 pg (25.0-34.0); Mean Corpuscular Hgb Conc 35.2 g/dL (32.0-36.0); Mean Corpuscular Volume 89.8 fL (80.0-100.0); Mean Platelet Volume 9.9 fL (9.4-12.3); Phosphorus 1.7 mg/dl (2.5-4.9); Platelet Count 125 K/uL (130-400); RDW Coefficient of Variation 13.2 % (11.5-14.5); RDW Standard Deviation 43.7 fL (36.4-46.3); Red Blood Count 3.42 M/uL (3.93-5.22); Total Protein 5.3 gm/dl (6.0-8.3); White Blood Count 9.32 K/ul (4.8-10.8)
[2021-11-23 06:12] LABS: Acanthocytes 1+; Basophils # (auto) 0.05 K/uL (0-0.2); Basophils % (auto) 0.5 %; Echinocytes 1+; Eosinophils # (auto) 0.08 K/uL (0-0.50); Eosinophils % (auto) 0.9 %; Immature Granulocytes # (auto) 0.18 K/uL (0.00-0.02); Immature Granulocytes % (auto) 1.9 %; Lymphocytes # (auto) 0.81 K/uL (1.2-3.4); Lymphocytes % (auto) 8.7 %; Monocytes # (auto) 0.93 K/uL (0.24-0.82); Neutrophils # (auto) 7.27 K/uL (1.4-6.5); Polychromasia 1+
[2021-11-23] MEDS: INSULIN ASPART PER UNIT SC SCH ×4 (07:47→20:48)
--- NOTE | 2021-11-23 08:02 | Hospitalist Progress Note ---
Date of Service November 23, 2021 Assessment & Plan (1) Sepsis: Plan: Patient presents with volume loss secondary to diarrhea and fevers #Sepsis - DDX: Bacterial food bourne gastroenteritis/viral gastroenteritis vs. UTI/pyelonephritis vs. 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 Coli and Enterococcus - Repeat blood cultures on 11/23 due to fever. Pending. 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 Appreciate recommendations. No emergent indication for dialysis. -Cefepime with renal dosing -Document strict I/O's. Nephrology instructed: For hypokalemia - Kphos and oral KCl provided (40 mEq BID) For hypomagnesia - 3 grams IV MgSo4 ordered For hypophosphatemia - 30 mmol Kphos ordered (3) UTI (urinary tract infection): Plan: Complicated UTI contributing to her sepsis - continue cefepime - urine culture growing gram negative bacilli (4) Diarrhea: Plan: -Diarrheal illness for 5 days - associated with fever, myalgias -No blood, abdominal pain, or mucous- doubt any ishemia as abd soft and without pain, no evidence of perforation or diverticulitis and without colonic thickening on CT scan -Stool BioFire negative. Will continue to monitor. Patient's sepsis most likely stems from a renal source rather than GI source. -Continue clear liquid diet and advance as tolerated -Continue IVF (5) Type 1 diabetes mellitus with diabetic retinopathy: Plan: Transition Trujeo to Lantus- will decrease her dose to 20units subq BID follow PO intake - aspart loose sliding scale without carb coverage until PO intake increases - goal <180mg/dl - glycemic consult. appreciate recommendations. (6) Pancreatic cyst: Plan: -Known and follows with Gastroenterology at [facility] -Has had this biopsied with reports per daughter as negative- see path report 07/16 -CT abdomen showed no inflammation of the pancreas. (7) Gallstones: Plan: -History of and known - t. bili 2.5, with alkpo4- 115 (close to baseline), AST 40 -Cholelithiasis without sonographic evidence of acute cholecystitis seen on imaging. -Following resuscitation and abx therapy (8) Hypertension: Plan: -Hold ARB and HZTZ d/t RODNEY on CKD -labetalol 100mg Q4 prn for BP over 160 -Will look to restart home meds when RODNEY resolves. (9) Acid reflux: Plan: -GERD with Benavides's esophagitis -Switched IV to PO Protonix 40mg daily (10) Obesity (BMI 30-39.9): Plan: -Stable follows with bariatric medicine -Continue management of comorbid metabolic syndrome- lipid, glucose, bp, weight loss (11) Dyslipidemia: Plan: -Continue pravastatin 10mg home dose (12) Solitary thyroid nodule: Plan: Follows with routine screening - 09/14 - Minimal increase in size of a 1 cm right lobe thyroid nodule since ultrasound of January 18, 2016. This nodule does not meet criteria for biopsy. - continue follow up with endocrine and PCP Plan Thank you for allowing me to participate in the care of your patient. -Dr. Sanya Camarillo PGY1 Admission and Anticipated Discharge Date Admission Date: November 22, 2021 Supervising Physician Co-Signing Physician Notes Patient seen and examined independently of PGY-1 Dr. Camarillo. Agree with history, exam findings, assessment and plan of care as outlined. In brief, Anamaria is a 75 year old female with type 1 diabetes, CKD, HTN, HLD, GERD admitted with sepsis and RODNEY secondary to diarrheal illness and urinary tract infection. Today, she feels much better than yesterday. Feels that she is less confused. Appetite is coming back. Still having some loose/watery stools. Was febrile this afternoon and note to have a new cough, although family reports cough is chronic. VS and nursing notes reviewed. Nontoxic appearing. Heart with regular rate and rhythm. No edema. Lungs are clear to auscultation. Abdomen is soft, nontender. Labs and imaging reviewed. 1. Sepsis, likely urinary source + bacteremia. Appropriately fluid resuscitated. Continue with mIVFs. Lactate downtrended. Cultures pending 2. Bacteremia. Initial blood cultures with gram neg bacilli, biofire with E. Coli and enterobacter. Abx coverage broadened to Cefepime. Repeat blood cultures on 11/23 pending. Can consider broadening to meropenem given continued fever. CXR without signs of infection, although there is atelectasis. Sputum culture pen ding. Deferred repeat COVID testing since she had a PCR test done on admission. 3. Urinary tract infection. culture with gram neg bacilli. Awaiting speciation and sensitivities, although suspect this will be the same as blood cultures. 4. RODNEY. Pre-renal with some contribution of ATN. Continue with IVFs. Appreciate nephrology recs. 5. electrolyte derangement. Repleting as indicated. Appreciate nephrology recs. 6. DM1. basal bolus insulin. Appreciate glycemic consult recs. 7. HTN. BPs have been appropriate. Ok to give PRN beta sean for SBP > 180. Holding home ARB and HCTZ. Dispo: pending clinical improvement. Subjective Patient was seen bedside this AM. Patient has been having watery green/yellow diarrhea that started Friday and a fever. Has had about 10 episodes of diarrhea yesterday. Patient states that she ate chicken on Friday but that she uses a thermometer to check the chicken and that her ate the same food and did not get sick. Patient also c/o of L sided back pain. She denies any dysuria or hematuria. Patient has no history of kidney stones but states that she has a h/o gallstones, pancreatic stones, and a stone in her R cheek. She denies N/V or abdominal pain. Review of Systems Review of Systems: All systems reviewed & are unremarkable except as noted in HPI & below Physical Exam Constitutional: well developed and + well hydrated Eyes: PERRL, conjunctivae normal, anicteric sclerae ENMT: external ear and nose normal, oropharynx normal Respiratory: normal respiratory effort, lungs clear to auscultation Cardiovascular: RRR, no murmur, no edema Gastrointestinal (Abdomen): normal bowel sounds, soft, nontender, no hepatosplenomegaly Skin: no rashes, warm and dry Results & Data Results & Data ([facility]) Vital Signs (Past 12 Hours) Vital Signs Temp Pulse Pulse Resp BP BP Pulse Ox 11/23/21 05:31 37.3 C 11/23/21 03:23 39.1 C H 113 H 25 H 178/77 H 94 11/22/21 23:34 104 H 11/22/21 23:20 37.3 C 11/22/21 23:03 144/56 H 11/22/21 23:00 103 H 24 94 11/22/21 21:30 37.2 C O2 Del Method 11/23/21 05:31 11/23/21 03:23 Room Air 11/22/21 23:34 11/22/21 23:20 11/22/21 23:03 11/22/21 23:00 11/22/21 21:30
[2021-11-23] MEDS: HEPARIN SOD 5,000 UNIT/0.5 ML VIAL SQ SCH ×2 (08:05→20:49)
[2021-11-23] MEDS: CHOLECALCIFEROL 1,000 UNITS 25 MCG TAB PO SCH (08:05)
[2021-11-23] MEDS: LANTUS PER UNIT CHARGE SQ SCH ×2 (08:06→20:49)
[2021-11-23] MEDS: PANTOprazole 40 MG in SYRINGE 0 ML IV SCH (08:06)
[2021-11-23] MEDS: SODIUM BICARBONATE 8.4% 150 MEQ in WATER, STERILE 1,000 ML IV SCH (10:09)
[2021-11-23] MEDS ORDERED: POTASSIUM PHOS 3 MMOL/1 ML INFUSION IV STA (10:10)
--- NOTE | 2021-11-23 10:14 | Nephrology Progress Note ---
Date of Service November 23, 2021 Assessment & Plan (1) Acute kidney injury: Plan: Prerenal with possible ATN. Non-oliguric. Electrolytes acceptable. No emergent indication for dialysis. Creatinine improving. CT demonstrates no evidence of obstruction. Blood cultures 2/2 +GNR. Urine studies suggestive of possible UTI - culture pending. Medications, including Cefepime appropriately dosed for kidney dysfunction. Document strict I/O's. Repeat metabolic profile this afternoon. For hypokalemia - Kphos and oral KCl provided (40 mEq BID) For hypomagnesia - 3 grams IV MgSo4 ordered For hypophosphatemia - 30 mmol Kphos ordered (2) Metabolic acidosis: Plan: NAGMA associated with kidney dysfunction and diarrhea. Continue W+NaHCO3 150 mEq @ 125 ml/h. (3) Hypertension: Plan: Hypotensive on arrival in the setting of sepsis and dehydration. HCTZ and losartan held. BP improving. (4) Stage III chronic kidney disease: Plan: CKD III A1-2. Baseline creatinine 1.3-1.6 mg/dL. CKD attributed to DKD. Medications appropriately dosed for kidney dysfunction. (5) Gram-negative bacteremia: Plan: Remains on cefepime. Surveillence cultures pending. Admission and Anticipated Discharge Date Admission Date: November 22, 2021 Subjective No acute events overnight. Subjective fevers/chills overnight. Feeling improved this AM. Diarrhea persists. No melena or hematochezia. Urine output improved. Denies urinary symptoms. Temp 39 this AM improved with acetaminophen. Denies abdominal pain. Blood culture 2/2 GNR. Review of Systems Review of Systems: All systems reviewed & are unremarkable except as noted in HPI & below Physical Exam Constitutional: well developed; no acute distress Eyes: no scleral abnormality and no corneal abnormality ENMT: Mouth: no oral mucosal abnormality and oral mucous membranes not dry Neck: normal visual inspection and trachea midline Respiratory: normal respiratory effort Auscultation: lungs clear to auscultation bilaterally Cardiovascular: Rate/Rhythm: regular rate Heart Sounds: normal S1 and normal S2 Extremities: no edema Musculoskeletal: Extremities: no cyanosis and no clubbing Skin: normal turgor; no lesions Neurologic: Motor/Sensory: no tremor and no asterixis Psychiatric: Orientation: alert and oriented x 3 Results & Data ([facility]) Vital Signs (Past 12 Hours) Vital Signs Temp Pulse Pulse Resp BP BP Pulse Ox 11/23/21 09:30 87 28 H 95 11/23/21 09:06 137/62 11/23/21 09:06 93 H 18 96 11/23/21 09:03 103 H 12 95 11/23/21 08:30 87 22 96 11/23/21 08:00 89 25 H 92 11/23/21 07:30 94 H 18 95 11/23/21 07:00 91 H 21 93 11/23/21 07:00 88 11/23/21 05:31 37.3 C 11/23/21 03:23 39.1 C H 113 H 25 H 178/77 H 94 11/22/21 23:34 104 H 11/22/21 23:20 37.3 C 11/22/21 23:03 144/56 H 11/22/21 23:00 103 H 24 94 O2 Del Method 11/23/21 09:30 11/23/21 09:06 11/23/21 09:06 11/23/21 09:03 11/23/21 08:30 11/23/21 08:00 11/23/21 07:30 11/23/21 07:00 11/23/21 07:00 11/23/21 05:31 11/23/21 03:23 Room Air 11/22/21 23:34 11/22/21 23:20 11/22/21 23:03 11/22/21 23:00 Laboratory Results Laboratory Results - last 24 hr 11/22/21 11/22/21 11/22/21 10:15 10:15 10:15 WBC 14.06 H RBC 4.34 Hgb 13.9 Hct 39.3 MCV 90.6 MCH 32.0 MCHC 35.4 RDW Std Deviation 44.3 RDW Coeff of Dior 13.3 Plt Count 166 MPV 10.4 Immature Gran % (Auto) 1.4 Neut % (Auto) 89.0 Lymph % (Auto) 5.2 [place] % (Auto) 3.3 Eos % (Auto) 0.4 Baso % (Auto) 0.7 Neut # (Auto) 12.50 H Lymph # (Auto) 0.73 L [place] # (Auto) 0.47 Eos # (Auto) 0.06 Baso # (Auto) 0.10 Immature Gran # (Auto) 0.20 H Polychromasia 1+ Echinocytes 1+ Acanthocytes (Spur) ESR PT Cancelled INR Cancelled APTT Cancelled PTT Ratio Cancelled VBG pH VBG pCO2 VBG pO2 VBG HCO3 VBG O2 Saturation VBG Base Excess Sodium 132 L Potassium 3.6 Chloride 97 L Carbon Dioxide 17 L Anion Gap 18 H BUN 56 H Creatinine 5.12 H* Est Cr Clr Drug Dosing 10.9 Est GFR ( Amer) 8.8 Est GFR (Non-Af Amer) 7.6 BUN/Creatinine Ratio 10.9 Glucose 169 H POC Glucose Lactate Calcium 9.1 Phosphorus Magnesium 1.2 L Total Bilirubin 2.5 H Direct Bilirubin AST 40 H ALT 22 Alkaline Phosphatase 115 H Troponin I High Sens 13.1 C-Reactive Protein Total Protein 6.7 Albumin 3.3 L Globulin 3.4 Albumin/Globulin Ratio 1.0 Procalcitonin Urine Color Urine Appearance Urine pH Ur Specific [place] Urine Protein Urine Glucose (UA) Urine Ketones Urine Blood Urine Nitrite Urine Bilirubin Urine Urobilinogen Ur Leukocyte Esterase Urine WBC (Auto) Urine RBC (Auto) U Hyaline Cast (Auto) U Epithel Cells (Auto) Urine Bacteria (Auto) Urine Yeast Stl C. cayetanensis PCR Stool Rotavirus A PCR Stl Adenov F 40/41 PCR Stool Astrovirus (PCR) Stool Campylobacter PCR Stl C. diff Tox A/B PCR Stool Cryptosporidium PCR Stl E.coli Shiga Tox PCR Stl Enterotoxigenic E PCR Stool EPEC (PCR) Stool EAEC (PCR) Stl E. histolytica PCR Stool Giardia Lamblia PCR Stool Salmonella PCR Stool Sapovirus (PCR) Stl P. shigelloides PCR Stl Shigella/EIEC PCR St Y.enterocolitica PCR Stool Vibrio (PCR) Stl Vibrio cholerae PCR Stl Norovirus GI/GII PCR SARS-CoV-2 (PCR) Enterobacterales (PCR) E. coli (PCR) mcr-1 Colistin Res Gene PCR blaIMP Car res Gene PCR KPC-Carbap Res Gene PCR blaNDM Car Res Gene PCR OXA-48 Carbapenem Resis Gene (PCR) blaVIM Car Res Gene PCR CTX-M Gene Resistance (PCR) Bld Cult ID Panel PCR 11/22/21 11/22/21 11/22/21 10:15 10:15 10:28 WBC RBC Hgb Hct MCV MCH MCHC RDW Std Deviation RDW Coeff of Dior Plt Count MPV Immature Gran % (Auto) Neut % (Auto) Lymph % (Auto) [place] % (Auto) Eos % (Auto) Baso % (Auto) Neut # (Auto) Lymph # (Auto) [place] # (Auto) Eos # (Auto) Baso # (Auto) Immature Gran # (Auto) Polychromasia Echinocytes Acanthocytes (Spur) ESR 68 H PT INR APTT PTT Ratio VBG pH VBG pCO2 VBG pO2 VBG HCO3 VBG O2 Saturation VBG Base Excess Sodium Potassium Chloride Carbon Dioxide Anion Gap BUN Creatinine Est Cr Clr Drug Dosing Est GFR ( Amer) Est GFR (Non-Af Amer) BUN/Creatinine Ratio Glucose POC Glucose 175 H Lactate 4.0 H* Calcium Phosphorus Magnesium Total Bilirubin Direct Bilirubin AST ALT Alkaline Phosphatase Troponin I High Sens C-Reactive Protein Total Protein Albumin Globulin Albumin/Globulin Ratio Procalcitonin Urine Color Urine Appearance Urine pH Ur Specific [place] Urine Protein Urine Glucose (UA) Urine Ketones Urine Blood Urine Nitrite Urine Bilirubin Urine Urobilinogen Ur Leukocyte Esterase Urine WBC (Auto) Urine RBC (Auto) U Hyaline Cast (Auto) U Epithel Cells (Auto) Urine Bacteria (Auto) Urine Yeast Stl C. cayetanensis PCR Stool Rotavirus A PCR Stl Adenov F 40/41 PCR Stool Astrovirus (PCR) Stool Campylobacter PCR Stl C. diff Tox A/B PCR Stool Cryptosporidium PCR Stl E.coli Shiga Tox PCR Stl Enterotoxigenic E PCR Stool EPEC (PCR) Stool EAEC (PCR) Stl E. histolytica PCR Stool Giardia Lamblia PCR Stool Salmonella PCR Stool Sapovirus (PCR) Stl P. shigelloides PCR Stl Shigella/EIEC PCR St Y.enterocolitica PCR Stool Vibrio (PCR) Stl Vibrio cholerae PCR Stl Norovirus GI/GII PCR SARS-CoV-2 (PCR) Enterobacterales (PCR) E. coli (PCR) mcr-1 Colistin Res Gene PCR blaIMP Car res Gene PCR KPC-Carbap Res Gene PCR blaNDM Car Res Gene PCR OXA-48 Carbapenem Resis Gene (PCR) blaVIM Car Res Gene PCR CTX-M Gene Resistance (PCR) Bld Cult ID Panel PCR 11/22/21 11/22/21 11/22/21 10:28 10:54 11:35 WBC RBC Hgb Hct MCV MCH MCHC RDW Std Deviation RDW Coeff of Dior Plt Count MPV Immature Gran % (Auto) Neut % (Auto) Lymph % (Auto) [place] % (Auto) Eos % (Auto) Baso % (Auto) Neut # (Auto) Lymph # (Auto) [place] # (Auto) Eos # (Auto) Baso # (Auto) Immature Gran # (Auto) Polychromasia Echinocytes Acanthocytes (Spur) ESR PT 12.4 H INR 1.2 H APTT 32.5 H PTT Ratio 1.2 VBG pH VBG pCO2 VBG pO2 VBG HCO3 VBG O2 Saturation VBG Base Excess Sodium Potassium Chloride Carbon Dioxide Anion Gap BUN Creatinine Est Cr Clr Drug Dosing Est GFR ( Amer) Est GFR (Non-Af Amer) BUN/Creatinine Ratio Glucose POC Glucose Lactate Calcium Phosphorus Magnesium Total Bilirubin Direct Bilirubin AST ALT Alkaline Phosphatase Troponin I High Sens C-Reactive Protein Total Protein Albumin Globulin Albumin/Globulin Ratio Procalcitonin Urine Color Urine Appearance Urine pH Ur Specific [place] Urine Protein Urine Glucose (UA) Urine Ketones Urine Blood Urine Nitrite Urine Bilirubin Urine Urobilinogen Ur Leukocyte Esterase Urine WBC (Auto) Urine RBC (Auto) U Hyaline Cast (Auto) U Epithel Cells (Auto) Urine Bacteria (Auto) Urine Yeast Stl C. cayetanensis PCR Stool Rotavirus A PCR Stl Adenov F 40/41 PCR Stool Astrovirus (PCR) Stool Campylobacter PCR Stl C. diff Tox A/B PCR Stool Cryptosporidium PCR Stl E.coli Shiga Tox PCR Stl Enterotoxigenic E PCR Stool EPEC (PCR) Stool EAEC (PCR) Stl E. histolytica PCR Stool Giardia Lamblia PCR Stool Salmonella PCR Stool Sapovirus (PCR) Stl P. shigelloides PCR Stl Shigella/EIEC PCR St Y.enterocolitica PCR Stool Vibrio (PCR) Stl Vibrio cholerae PCR Stl Norovirus GI/GII PCR SARS-CoV-2 (PCR) NEGATIVE Enterobacterales (PCR) DETECTED A E. coli (PCR) DETECTED A mcr-1 Colistin Res Gene PCR Not Detected blaIMP Car res Gene PCR Not Detected KPC-Carbap Res Gene PCR Not Detected blaNDM Car Res Gene PCR Not Detected OXA-48 Carbapenem Resis Gene (PCR) Not Detected blaVIM Car Res Gene PCR Not Detected CTX-M Gene Resistance (PCR) Not Detected Bld Cult ID Panel PCR See PCR Comment 11/22/21 11/22/21 11/22/21 12:20 14:27 14:27 WBC RBC Hgb Hct MCV MCH MCHC RDW Std Deviation RDW Coeff of Dior Plt Count MPV Immature Gran % (Auto) Neut % (Auto) Lymph % (Auto) [place] % (Auto) Eos % (Auto) Baso % (Auto) Neut # (Auto) Lymph # (Auto) [place] # (Auto) Eos # (Auto) Baso # (Auto) Immature Gran # (Auto) Polychromasia Echinocytes Acanthocytes (Spur) ESR PT INR APTT PTT Ratio VBG pH VBG pCO2 VBG pO2 VBG HCO3 VBG O2 Saturation VBG Base Excess Sodium Potassium Chloride Carbon Dioxide Anion Gap BUN Creatinine Est Cr Clr Drug Dosing Est GFR ( Amer) Est GFR (Non-Af Amer) BUN/Creatinine Ratio Glucose POC Glucose Lactate 2.4 H* Calcium Phosphorus Magnesium Total Bilirubin Direct Bilirubin AST ALT Alkaline Phosphatase Troponin I High Sens C-Reactive Protein 29.05 H Total Protein Albumin Globulin Albumin/Globulin Ratio Procalcitonin Urine Color Dark Yellow Urine Appearance Cloudy A Urine pH 5.5 Ur Specific [place] 1.010 Urine Protein 1+ H Urine Glucose (UA) Negative Urine Ketones Negative Urine Blood 3+ H Urine Nitrite Negative Urine Bilirubin Negative Urine Urobilinogen Negative Ur Leukocyte Esterase 2+ H Urine WBC (Auto) >30 H Urine RBC (Auto) 5-10 H U Hyaline Cast (Auto) 5-10 H U Epithel Cells (Auto) >30 H Urine Bacteria (Auto) 3+ H Urine Yeast Not Reportable Stl C. cayetanensis PCR Stool Rotavirus A PCR Stl Adenov F 40/41 PCR Stool Astrovirus (PCR) Stool Campylobacter PCR Stl C. diff Tox A/B PCR Stool Cryptosporidium PCR Stl E.coli Shiga Tox PCR Stl Enterotoxigenic E PCR Stool EPEC (PCR) Stool EAEC (PCR) Stl E. histolytica PCR Stool Giardia Lamblia PCR Stool Salmonella PCR Stool Sapovirus (PCR) Stl P. shigelloides PCR Stl Shigella/EIEC PCR St Y.enterocolitica PCR Stool Vibrio (PCR) Stl Vibrio cholerae PCR Stl Norovirus GI/GII PCR SARS-CoV-2 (PCR) Enterobacterales (PCR) E. coli (PCR) mcr-1 Colistin Res Gene PCR blaIMP Car res Gene PCR KPC-Carbap Res Gene PCR blaNDM Car Res Gene PCR OXA-48 Carbapenem Resis Gene (PCR) blaVIM Car Res Gene PCR CTX-M Gene Resistance (PCR) Bld Cult ID Panel PCR 11/22/21 11/22/21 11/22/21 14:27 14:27 16:15 WBC RBC Hgb Hct MCV MCH MCHC RDW Std Deviation RDW Coeff of Dior Plt Count MPV Immature Gran % (Auto) Neut % (Auto) Lymph % (Auto) [place] % (Auto) Eos % (Auto) Baso % (Auto) Neut # (Auto) Lymph # (Auto) [place] # (Auto) Eos # (Auto) Baso # (Auto) Immature Gran # (Auto) Polychromasia Echinocytes Acanthocytes (Spur) ESR PT INR APTT PTT Ratio VBG pH 7.33 L VBG pCO2 39 VBG pO2 17 VBG HCO3 21 VBG O2 Saturation < 60.0 VBG Base Excess -4.9 Sodium Potassium Chloride Carbon Dioxide Anion Gap BUN Creatinine Est Cr Clr Drug Dosing Est GFR ( Amer) Est GFR (Non-Af Amer) BUN/Creatinine Ratio Glucose POC Glucose Lactate 3.7 H* Calcium Phosphorus Magnesium Total Bilirubin Direct Bilirubin AST ALT Alkaline Phosphatase Troponin I High Sens C-Reactive Protein Total Protein Albumin Globulin Albumin/Globulin Ratio Procalcitonin 21.39 H Urine Color Urine Appearance Urine pH Ur Specific [place] Urine Protein Urine Glucose (UA) Urine Ketones Urine Blood Urine Nitrite Urine Bilirubin Urine Urobilinogen Ur Leukocyte Esterase Urine WBC (Auto) Urine RBC (Auto) U Hyaline Cast (Auto) U Epithel Cells (Auto) Urine Bacteria (Auto) Urine Yeast Stl C. cayetanensis PCR Stool Rotavirus A PCR Stl Adenov F 40/41 PCR Stool Astrovirus (PCR) Stool Campylobacter PCR Stl C. diff Tox A/B PCR Stool Cryptosporidium PCR Stl E.coli Shiga Tox PCR Stl Enterotoxigenic E PCR Stool EPEC (PCR) Stool EAEC (PCR) Stl E. histolytica PCR Stool Giardia Lamblia PCR Stool Salmonella PCR Stool Sapovirus (PCR) Stl P. shigelloides PCR Stl Shigella/EIEC PCR St Y.enterocolitica PCR Stool Vibrio (PCR) Stl Vibrio cholerae PCR Stl Norovirus GI/GII PCR SARS-CoV-2 (PCR) Enterobacterales (PCR) E. coli (PCR) mcr-1 Colistin Res Gene PCR blaIMP Car res Gene PCR KPC-Carbap Res Gene PCR blaNDM Car Res Gene PCR OXA-48 Carbapenem Resis Gene (PCR) blaVIM Car Res Gene PCR CTX-M Gene Resistance (PCR) Bld Cult ID Panel PCR 11/22/21 11/22/21 11/22/21 16:23 19:08 19:08 WBC RBC Hgb Hct MCV MCH MCHC RDW Std Deviation RDW Coeff of Dior Plt Count MPV Immature Gran % (Auto) Neut % (Auto) Lymph % (Auto) [place] % (Auto) Eos % (Auto) Baso % (Auto) Neut # (Auto) Lymph # (Auto) [place] # (Auto) Eos # (Auto) Baso # (Auto) Immature Gran # (Auto) Polychromasia Echinocytes Acanthocytes (Spur) ESR PT INR APTT PTT Ratio VBG pH VBG pCO2 VBG pO2 VBG HCO3 VBG O2 Saturation VBG Base Excess Sodium 134 L Potassium 3.4 L Chloride 104 Carbon Dioxide 18 L Anion Gap 12 H BUN 52 H Creatinine 3.84 H D Est Cr Clr Drug Dosing 14.6 Est GFR ( Amer) 12.5 Est GFR (Non-Af Amer) 10.7 BUN/Creatinine Ratio 13.5 Glucose 150 H POC Glucose 133 H Lactate 2.5 H* Calcium 8.2 L Phosphorus Magnesium Total Bilirubin Direct Bilirubin AST ALT Alkaline Phosphatase Troponin I High Sens C-Reactive Protein Total Protein Albumin Globulin Albumin/Globulin Ratio Procalcitonin Urine Color Urine Appearance Urine pH Ur Specific [place] Urine Protein Urine Glucose (UA) Urine Ketones Urine Blood Urine Nitrite Urine Bilirubin Urine Urobilinogen Ur Leukocyte Esterase Urine WBC (Auto) Urine RBC (Auto) U Hyaline Cast (Auto) U Epithel Cells (Auto) Urine Bacteria (Auto) Urine Yeast Stl C. cayetanensis PCR Stool Rotavirus A PCR Stl Adenov F 40/41 PCR Stool Astrovirus (PCR) Stool Campylobacter PCR Stl C. diff Tox A/B PCR Stool Cryptosporidium PCR Stl E.coli Shiga Tox PCR Stl Enterotoxigenic E PCR Stool EPEC (PCR) Stool EAEC (PCR) Stl E. histolytica PCR Stool Giardia Lamblia PCR Stool Salmonella PCR Stool Sapovirus (PCR) Stl P. shigelloides PCR Stl Shigella/EIEC PCR St Y.enterocolitica PCR Stool Vibrio (PCR) Stl Vibrio cholerae PCR Stl Norovirus GI/GII PCR SARS-CoV-2 (PCR) Enterobacterales (PCR) E. coli (PCR) mcr-1 Colistin Res Gene PCR blaIMP Car res Gene PCR KPC-Carbap Res Gene PCR blaNDM Car Res Gene PCR OXA-48 Carbapenem Resis Gene (PCR) blaVIM Car Res Gene PCR CTX-M Gene Resistance (PCR) Bld Cult ID Panel PCR 11/22/21 11/23/21 11/23/21 20:25 01:29 05:24 WBC 9.32 RBC 3.42 L Hgb 10.8 L D Hct 30.7 L MCV 89.8 MCH 31.6 MCHC 35.2 RDW Std Deviation 43.7 RDW Coeff of Dior 13.2 Plt Count 125 L MPV 9.9 Immature Gran % (Auto) 1.9 Neut % (Auto) 78.0 Lymph % (Auto) 8.7 [place] % (Auto) 10.0 Eos % (Auto) 0.9 Baso % (Auto) 0.5 Neut # (Auto) 7.27 H Lymph # (Auto) 0.81 L [place] # (Auto) 0.93 H Eos # (Auto) 0.08 Baso # (Auto) 0.05 Immature Gran # (Auto) 0.18 H Polychromasia 1+ Echinocytes 1+ Acanthocytes (Spur) 1+ ESR PT INR APTT PTT Ratio VBG pH VBG pCO2 VBG pO2 VBG HCO3 VBG O2 Saturation VBG Base Excess Sodium Potassium Chloride Carbon Dioxide Anion Gap BUN Creatinine Est Cr Clr Drug Dosing Est GFR ( Amer) Est GFR (Non-Af Amer) BUN/Creatinine Ratio Glucose POC Glucose 152 H Lactate Calcium Phosphorus Magnesium Total Bilirubin Direct Bilirubin AST ALT Alkaline Phosphatase Troponin I High Sens C-Reactive Protein Total Protein Albumin Globulin Albumin/Globulin Ratio Procalcitonin Urine Color Urine Appearance Urine pH Ur Specific [place] Urine Protein Urine Glucose (UA) Urine Ketones Urine Blood Urine Nitrite Urine Bilirubin Urine Urobilinogen Ur Leukocyte Esterase Urine WBC (Auto) Urine RBC (Auto) U Hyaline Cast (Auto) U Epithel Cells (Auto) Urine Bacteria (Auto) Urine Yeast Stl C. cayetanensis PCR Not Detected Stool Rotavirus A PCR Not Detected Stl Adenov F 40/41 PCR Not Detected Stool Astrovirus (PCR) Not Detected Stool Campylobacter PCR Not Detected Stl C. diff Tox A/B PCR Not Detected Stool Cryptosporidium PCR Not Detected Stl E.coli Shiga Tox PCR Not Detected Stl Enterotoxigenic E PCR Not Detected Stool EPEC (PCR) Not Detected Stool EAEC (PCR) Not Detected Stl E. histolytica PCR Not Detected Stool Giardia Lamblia PCR Not Detected Stool Salmonella PCR Not Detected Stool Sapovirus (PCR) Not Detected Stl P. shigelloides PCR Not Detected Stl Shigella/EIEC PCR Not Detected St Y.enterocolitica PCR Not Detected Stool Vibrio (PCR) Not Detected Stl Vibrio cholerae PCR Not Detected Stl Norovirus GI/GII PCR Not Detected SARS-CoV-2 (PCR) Enterobacterales (PCR) E. coli (PCR) mcr-1 Colistin Res Gene PCR blaIMP Car res Gene PCR KPC-Carbap Res Gene PCR blaNDM Car Res Gene PCR OXA-48 Carbapenem Resis Gene (PCR) blaVIM Car Res Gene PCR CTX-M Gene Resistance (PCR) Bld Cult ID Panel PCR 11/23/21 11/23/21 05:24 05:24 WBC RBC Hgb Hct MCV MCH MCHC RDW Std Deviation RDW Coeff of Dior Plt Count MPV Immature Gran % (Auto) Neut % (Auto) Lymph % (Auto) [place] % (Auto) Eos % (Auto) Baso % (Auto) Neut # (Auto) Lymph # (Auto) [place] # (Auto) Eos # (Auto) Baso # (Auto) Immature Gran # (Auto) Polychromasia Echinocytes Acanthocytes (Spur) ESR PT 11.7 INR 1.1 APTT PTT Ratio VBG pH VBG pCO2 VBG pO2 VBG HCO3 VBG O2 Saturation VBG Base Excess Sodium 131 L Potassium 3.0 L Chloride 102 Carbon Dioxide 19 L Anion Gap 10 BUN 48 H Creatinine 3.21 H D Est Cr Clr Drug Dosing 18.3 Est GFR ( Amer) 15.5 Est GFR (Non-Af Amer) 13.3 BUN/Creatinine Ratio 15.0 Glucose 137 H POC Glucose Lactate Calcium 7.7 L Phosphorus 1.7 L Magnesium 1.4 L Total Bilirubin 1.7 H Direct Bilirubin 1.0 H AST 31 ALT 17 Alkaline Phosphatase 94 Troponin I High Sens C-Reactive Protein Total Protein 5.3 L D Albumin 2.6 L Globulin Albumin/Globulin Ratio Procalcitonin Urine Color Urine Appearance Urine pH Ur Specific [place] Urine Protein Urine Glucose (UA) Urine Ketones Urine Blood Urine Nitrite Urine Bilirubin Urine Urobilinogen Ur Leukocyte Esterase Urine WBC (Auto) Urine RBC (Auto) U Hyaline Cast (Auto) U Epithel Cells (Auto) Urine Bacteria (Auto) Urine Yeast Stl C. cayetanensis PCR Stool Rotavirus A PCR Stl Adenov F 40/41 PCR Stool Astrovirus (PCR) Stool Campylobacter PCR Stl C. diff Tox A/B PCR Stool Cryptosporidium PCR Stl E.coli Shiga Tox PCR Stl Enterotoxigenic E PCR Stool EPEC (PCR) Stool EAEC (PCR) Stl E. histolytica PCR Stool Giardia Lamblia PCR Stool Salmonella PCR Stool Sapovirus (PCR) Stl P. shigelloides PCR Stl Shigella/EIEC PCR St Y.enterocolitica PCR Stool Vibrio (PCR) Stl Vibrio cholerae PCR Stl Norovirus GI/GII PCR SARS-CoV-2 (PCR) Enterobacterales (PCR) E. coli (PCR) mcr-1 Colistin Res Gene PCR blaIMP Car res Gene PCR KPC-Carbap Res Gene PCR blaNDM Car Res Gene PCR OXA-48 Carbapenem Resis Gene (PCR) blaVIM Car Res Gene PCR CTX-M Gene Resistance (PCR) Bld Cult ID Panel PCR PG Care Time/CCT Total # of Minutes Spent Total Time Spent with Patient: Total time spent is greater than 50% in coordination of care (as documented) at patient's floor/unit and/or counseling patient: Coding Level of Care Code 65962 Subseq Hosp Care Lvl 3 Diagnoses Acute kidney injury N17.9 Metabolic acidosis E87.2 Hypertension I10 Stage III chronic kidney disease N18.3 Gram-negative bacteremia R78.81
[2021-11-23] MEDS ORDERED: POTASSIUM PHOSPHATE 30 MMOL in SODIUM CHLORIDE 0.9% 500 ML IV ONE (10:30)
[2021-11-23] MEDS: POTASSIUM CHLORIDE CRTAB 20 MEQ TABCR PO SCH ×2 (10:49→20:50)
[2021-11-23] MEDS: MAGNESIUM SULFATE / D5W 1 GM/100 ML BAG IV SCH ×3 (10:54→15:12)
[2021-11-23] MEDS ORDERED: PANTOprazole 40 MG in SYRINGE 0 ML IV SCH ×2 (11:00→13:00)
[2021-11-23] MEDS ORDERED: cefTRIAXone SODIUM 2,000 MG in DEXTROSE 5% 50 ML IV SCH (12:00)
[2021-11-23] MEDS ORDERED: PHARMACY GLYCEMIC MGMT CONSULT PRN (12:59)
[2021-11-23] MEDS ORDERED: SODIUM BICARBONATE 8.4% 150 MEQ in WATER, STERILE 1,000 ML IV SCH (13:15)
--- NOTE | 2021-11-23 14:00 | Pharmacy Report ---
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 Given patient's h/o type 1 vs type 1.5 will need to monitor basal needs and PO intake closely as she may be prone to ketoacidosis if insulin delivery insufficient. She is currently ordered clear liquid diet. Will continue Lantus in lesser dose than outpt regimen provided, continue to split dose BID for dosing flexibility and titration purposes and dose per scale given uncertain needs with current stressors and change in diet. * Will base Novolog doses upon outpt insulin needs, but scaled back somewhat due to possibility of GI intolerance of diet. PLAN FOR INPATIENT GLYCEMIC CONTROL: * Hold outpatient oral diabetes medications * Basal insulin * Lantus SQ BID per scale: * 0 units if BSG less than 100 * 10 units if BSG 100-140 * 14 units if BSG 141-220 * 18 units if BSG greater than 220 * Bolus insulin * NovoLog per scale ACHS and at 0200 tonight * Goal Range: Low 110 mg/dL - High 160 mg/dL * Correction Factor: 15 mg/dL/unit * Nutritional / Prandial insulin per carb ratio of 1 unit per 5 grams CHO consumed
[2021-11-23 15:11] LABS: Albumin Level 2.7 gm/dl (3.4-5.0); BUN Creatinine Ratio 15.6 (10-20); Calcium 7.5 mg/dl (8.5-10.1); Creatinine Clr Calc Pharmacy 20.8 ml/min; Est GFR (African American) 18.1 ml/min; Est GFR (Non-African American) 15.6 ml/min; Phosphorus 2.6 mg/dl (2.5-4.9); Potassium 3.3 mmol/L (3.5-5.1)
[2021-11-23] MEDS ORDERED: LABETALOL HCL 100 MG TAB PO PRN (17:56)
--- NOTE | 2021-11-23 18:03 | XRay Report ---
XR chest 1V portable CLINICAL HISTORY: new fever, cough COMPARISON STUDY: Chest radiograph November 22, 2021. FINDINGS: No pneumothorax or pleural effusion is noted. Mild interstitial thickening has developed. T here may be mild left basilar opacity. Borderline cardiomegaly is accentuated on this AP study. IMPRESSION: 1. Interval development of interstitial thickening. This may reflect pulmonary vascular congestion. 2. Mild left basilar opacity which favors atelectasis although developing consolidation could appear similar. ACT 112: Negative or not required by law. Electronically signed by: Jai Kaplan M.D. 11/23/2021 6:02 PM
[2021-11-23] MEDS: NORMOSOL-R 1,000 ML IV SCH (18:06)
--- NOTE | 2021-11-23 20:04 | Ultrasound Report ---
US venous doppler LE RT CLINICAL HISTORY: right leg pain, bumps COMPARISON: None available at the time of this dictation. TECHNIQUE: Right lower extremity real-time compression venous ultrasound with Color Doppler imaging. Utilizing real-time ultrasonic imaging multiple real time high-resolution ultrasonic images with comp ression and noncompression maneuvers of the deep venous system in addition to color doppler imaging w ere performed from the common femoral vein through the proximal calf veins. FINDINGS: Currently there is normal compressibility of the deep venous system from the common femoral vein thro ugh the proximal calf veins. No current evidence of acute thrombosis is identified. Impression: 1. No evidence of deep venous thrombus. ACT 112: Negative or not required by law. Electronically signed by: Naman Forrester M.D. 11/23/2021 8:01 PM
[2021-11-23] MEDS: PRAVASTATIN SOD 10 MG TAB PO SCH (20:50)
--- NOTE | 2021-11-23 21:15 | Electrocardiogram Report ---
Test Reason : Blood Pressure : / mmHG Vent. Rate : 093 BPM Atrial Rate : 093 BPM P-R Int : 184 ms QRS Dur : 092 ms QT Int : 384 ms P-R-T Axes : 060 -04 055 degrees QTc Int : 477 ms Normal sinus rhythm Normal ECG When compared with ECG of 22-NOV-2021 10:43, Premature atrial complexes are no longer Present Confirmed by Denver Nash ([id number]) on 11/23/2021 9:15:29 PM Referred By: Td Foster Confirmed By:Denver Nash
[2021-11-24] MEDS: CEFEPIME 2,000 MG in SYRINGE 0 ML IV SCH (01:36)
[2021-11-24] MEDS ORDERED: INSULIN ASPART PER UNIT SC SCH (02:00)
[2021-11-24] MEDS: NORMOSOL-R 1,000 ML IV SCH ×3 (02:04→21:36)
[2021-11-24 05:34] LABS: Hematocrit (blood only) 30.2 % (34.1-44.9); Hemoglobin 10.6 g/dl (12.0-16.0); Mean Corpuscular Hemoglobin 31.5 pg (25.0-34.0); Mean Corpuscular Hgb Conc 35.1 g/dL (32.0-36.0); Mean Corpuscular Volume 89.9 fL (80.0-100.0); Mean Platelet Volume 9.3 fL (9.4-12.3); Platelet Count 141 K/uL (130-400); RDW Coefficient of Variation 13.2 % (11.5-14.5); RDW Standard Deviation 43.8 fL (36.4-46.3); Red Blood Count 3.36 M/uL (3.93-5.22); White Blood Count 9.47 K/ul (4.8-10.8)
[2021-11-24 05:52] LABS: Albumin Level 2.6 gm/dl (3.4-5.0); BUN Creatinine Ratio 14.6 (10-20); Bilirubin Direct 0.7 mg/dl (0-0.2); Bilirubin,Total 1.5 mg/dl (0.2-1.0); Calcium 7.8 mg/dl (8.5-10.1); Creatinine Clr Calc Pharmacy 24.5 ml/min; Magnesium 2.2 mg/dl (1.7-2.4); Potassium 3.4 mmol/L (3.5-5.1); Total Protein 5.5 gm/dl (6.0-8.3)
[2021-11-24 05:53] LABS: Basophils # (auto) 0.07 K/uL (0-0.2); Basophils % (auto) 0.7 %; Eosinophils # (auto) 0.15 K/uL (0-0.50); Eosinophils % (auto) 1.6 %; Immature Granulocytes # (auto) 0.53 K/uL (0.00-0.02); Immature Granulocytes % (auto) 5.6 %; Lymphocytes % (auto) 14.8 %; Monocytes # (auto) 1.25 K/uL (0.24-0.82); Monocytes % (auto) 13.2 %; Neutrophils # (auto) 6.07 K/uL (1.4-6.5); Neutrophils % (auto) 64.1 %; RBC Morphology Unremarkable
--- NOTE | 2021-11-24 06:53 | Hospitalist Progress Note ---
Date of Service November 24, 2021 Assessment & Plan (1) Sepsis: (2) Acute kidney injury: (3) UTI (urinary tract infection): (4) Type 1 diabetes mellitus with diabetic retinopathy: (5) Hypertension: (6) Acid reflux: (7) Dyslipidemia: (8) Back pain: (9) Stage III chronic kidney disease: (10) Chronic cough: (11) Pulmonary vascular congestion: Plan Anamaria is a 75 year old female with type 1 diabetes, CKD, HTN, HLD, GERD admitted with sepsis and RODNEY secondary to diarrheal illness and urinary tract infection. #Sepsis--resolved - Secondary to E. Coli bacteremia and E. Coli urinary tract infection #E. Coli Bacteremia - Blood cultures / with gamino-sensitive E. Coli - Repeat blood cultures on 11/23 due to fever pending. - Continue Cefepime, but consider broader coverage to meropenem if another fever - anticipate that we may be able to change to oral antibiotics once she is afebrile for 48 hours; likely will need 14 day course of antibiotics - D/C'ed vanc # E. Coli Urinary Tract infection - culture growing gamino-sensitive E. Coli - continue Cefepime # RODNEY - prerenal with contribution of ATN - Cr is improving (5.12 on admission) to 2.4 today - decreased IVFs to 80/h - appreciate nephrology recommendations - continue with renal dosing for antibiotics and avoiding nephrotoxic agents - monitor I/O's and lytes # Diarrhea: - less frequent but still having watery stool - Stool BioFire was negative. - advance diet as tolerated - if still having watery stool, can consider imodium or other anti-diarrheal agent # cough, acute on chronic - new oxygen requirement overnight - CXR with mild pulmonary edema likely secondary to aggressive IVF administration for sepsis - Can consider gentle diuresis if no improvement with decreased IVF rate overnight or if she worsens overnight (ie increased O2 requirement) - unknown etiology of chronic cough--has seen pulm (Dr. Whelan) and ENT in the past # decreased appetite - likely secondary to acute illness - added glucose control Boost to meals (chocolate) # elevated liver tests - normalizing - T. Bili still slightly elevated at 1.5, AST and ALT have normalized, Alk P is close to normal # DM1 - basal bolus insulin - glycemic consult, appreciate recommendations as she starts to increase her oral intake # HTN - holding home ARV and HCTZ due to RODNEY - blood pressures have been in an acceptable range without anti-hypertensive - PRN labetalol ordered for SBP > 180 - if BPs are consistently elevated in the setting of RODNEY, can consider oral CCB for BP control #back pain - muscular etiology - topical lidocaine patch # GERD with Benavides's esophagitis - Protonix 40mg daily # Dyslipidemia - continue home pravastatin 10mg FEN: carb consistent DVT prophylaxis: subQ heparin Code Status: FULL Dispo: pending clinical improvement Admission and Anticipated Discharge Date Admission Date: November 22, 2021 Supervising Physician Co-Signing Physician Notes Patient seen and examined independently of PGY-1 Dr. Camarillo. Agree with history, exam findings, assessment and plan of care as outlined. In brief, Anamaria is a 75 year old female with type 1 diabetes, CKD, HTN, HLD, GERD admitted with sepsis and RODNEY secondary to diarrheal illness and urinary tract infection. Continues to cough today. Wet sounding. No chills. Does not recall fever from last night. Reports that her cough is chronic--years--but maybe is a bit worse than her baseline. Did have a new o2 requirement overnight. CXR with mild vascular congestion; no obvious infiltrate. She had seen Dr. Whelan (pulm) many years ago for this cough as well as ENT. Has not had recent chest imaging other than chest xray. Had tried an inhaler many years ago but it made her heart feel like it was pounding out of her chest. Had some watery stool this morning Feels that the frequency of loose stool is less. VS and nursing notes reviewed. Nontoxic appearing. Heart with regular rate and rhythm. Trace edema in the bilateral lower extremities. Lungs with coarse breath sounds throughout. Abdomen is soft, nontender. Labs and imaging reviewed. 1. Sepsis, likely urinary source + bacteremia. Appropriately fluid resuscitated. Continue with mIVFs. Lactate downtrended. Cultures as below. 2. Bacteremia. Blood cultures with gamino sensitive E. Coli. Continue Cefepime. Repeat blood cultures on 11/23 pending (following reported fever). Can consider broadening to meropenem given continued fever. CXR without signs of infection, although there is atelectasis. Sputum culture pending. Deferred repeat COVID testing since she had a PCR test done on admission. 3. Urinary tract infection. culture with gram neg bacilli. Awaiting speciation and sensitivities, although suspect this will be the same as blood cultures. 4. Loose stool. Improving in terms of frequency. Advancing diet as tolerated. If still with watery stools tomorrow, can consider a bulking or anti-diarrheal agent. 5. RODNEY. ImprovingPre-renal with some contribution of ATN. Decreased IVF rate. Appreciate nephrology recs. 6. electrolyte derangement. Repleting as indicated. 7. acute on chronic cough. Likely some contribution from slight fluid overload after aggressive fluid resuscitation for sepsis as seen on CXR. Hold on diuresis for now given diminished kidney function; however, if she becomes short of breath or O2 requirement increases, consider 20mg IV lasix (she is loop diuretic naive) 8. DM1. basal bolus insulin. Appreciate glycemic consult recs. 9. HTN. BPs have been appropriate. Ok to give PRN beta sean for SBP > 180. Holding home ARB and HCTZ. If persistent elevation in her blood pressures, can consider adding oral CCB for better blood pressure control. Dispo: pending clinical improvement. Subjective Patient was seen beside this AM. She c/o fatique, back pain, and a cough. Patient's back pain is in different location than yesterday's L sided flank pain. He back pain today is bilateral on her lower back. Her cough has been a chronic issue but getting a little worse right now. She said yesterday she had a productive white mucus cough. She states that she has not had an episode of diarrhea since 8pm last night. Review of Systems Review of Systems: All systems reviewed & are unremarkable except as noted in HPI & below Physical Exam Constitutional: well developed and + well hydrated Eyes: PERRL, conjunctivae normal, anicteric sclerae ENMT: external ear and nose normal, oropharynx normal Respiratory: normal respiratory effort and + cough Auscultation: + rhonchi Cardiovascular: RRR, no murmur, no edema Gastrointestinal (Abdomen): normal bowel sounds, soft, nontender, no hepatosplenomegaly Skin: no rashes, warm and dry +1 pitting edema in the bilateral LE Results & Data Results & Data ([facility]) Vital Signs (Past 12 Hours) Vital Signs Temp Pulse Pulse Resp BP Pulse Ox O2 Del Method 11/24/21 04:40 37.1 C 84 25 H 139/63 94 Nasal Cannula 11/24/21 00:27 90 11/24/21 00:00 37.2 C 100 H 19 174/95 H 92 Nasal Cannula 11/23/21 20:00 37 C 86 26 H 122/73 95 Nasal Cannula 11/23/21 21:25 Nasal Cannula O2 Flow Rate 11/24/21 04:40 2 11/24/21 00:27 11/24/21 00:00 2 11/23/21 20:00 2 11/23/21 21:25 2 Resident Activity Tracking Resident Involvement: Resident Care Provided Care Provided: Adult Hospital Medicine
--- NOTE | 2021-11-24 08:19 | Nephrology Progress Note ---
Date of Service November 24, 2021 Assessment & Plan (1) Acute kidney injury: Plan: * Recovery phase. Nonoliguric. Cr improved from 5.1 to 2.4 (baseline 1.2 - 1.5) * Will reduce IVF to 80 cc/hr and encourage oral hydration * Monitor PRP * Continue to hold Losartan and HCTZ (2) Stage III chronic kidney disease: Plan: * CKD stage G3/A2. Baseline creatinine 1.2-1.5 mg/dL. CKD attributed to DKD. (3) Hypertension: Plan: * Hypotensive on arrival in the setting of sepsis and dehydration. HCTZ and losartan held. BP improving (4) Gram-negative bacteremia: Plan: * Urine culture positive for E. Coli * Remains on IV cefepime Admission and Anticipated Discharge Date Admission Date: November 22, 2021 Subjective Mrs. Deshpande was evaluated in the ICU this morning. She reports that her diarrhea has resolved and she is tolerating a liquid diet. She was afebrile overnight. Review of Systems Constitutional: no fever Eyes: no problem reported Ear, Nose, Mouth, Throat: no problem reported Respiratory: no cough and no dyspnea Cardiovascular: no chest pain Gastrointestinal: no abdominal pain and no diarrhea/loose stools Genitourinary: no dysuria Physical Exam Constitutional: not in distress Eyes: PERRL, conjunctivae normal, anicteric sclerae ENMT: external ear and nose normal, oropharynx normal Neck: trachea midline, no thyromegaly Respiratory: normal respiratory effort, lungs clear to auscultation Cardiovascular: RRR, no murmur, no edema Gastrointestinal (Abdomen): normal bowel sounds, soft, nontender, no hepatosplenomegaly Skin: no rashes, warm and dry Neurologic: awake; not confused Results & Data ([facility]) Vital Signs (Past 12 Hours) Vital Signs Temp Pulse Pulse Resp BP Pulse Ox O2 Del Method 11/24/21 07:40 37.3 C 92 H 22 166/93 H 94 Room Air 11/24/21 04:40 37.1 C 84 25 H 139/63 94 Nasal Cannula 11/24/21 00:27 90 11/24/21 00:00 37.2 C 100 H 19 174/95 H 92 Nasal Cannula 11/23/21 21:25 Nasal Cannula O2 Flow Rate 11/24/21 07:40 11/24/21 04:40 2 11/24/21 00:27 11/24/21 00:00 2 11/23/21 21:25 2 Laboratory Results Laboratory Tests 11/24/21 11/24/21 05:11 05:11 WBC 9.47 Hgb 10.6 L Hct 30.2 L Plt Count 141 Sodium 134 L Potassium 3.4 L Chloride 101 Carbon Dioxide 24 BUN 35 H Creatinine 2.40 H D Glucose 103 H Calcium 7.8 L Total Bilirubin 1.5 H AST 25 ALT 16 Alkaline Phosphatase 111 H Albumin 2.6 L Diagnostic Findings 11/22/21 Urine culture: Organism 1 Escherichia coli [place] Count >100,000 CFU/ml Sens Sensitivities to Follow PG Care Time/CCT Total # of Minutes Spent Total Time Spent with Patient: Total time spent is greater than 50% in coordination of care (as documented) at patient's floor/unit and/or counseling patient: Coding Level of Care Code 82329 Subseq Hosp Care Lvl 3 Diagnoses Acute kidney injury N17.9 Stage III chronic kidney disease N18.3 Hypertension I10 Gram-negative bacteremia R78.81
[2021-11-24] MEDS: INSULIN ASPART PER UNIT SC SCH ×4 (08:23→21:34)
[2021-11-24] MEDS: LANTUS PER UNIT CHARGE SQ SCH ×2 (08:23→21:37)
[2021-11-24] MEDS: POTASSIUM CHLORIDE CRTAB 20 MEQ TABCR PO SCH ×2 (08:37→21:32)
[2021-11-24] MEDS: PANTOprazole 40 MG TAB PO SCH (08:37)
[2021-11-24] MEDS: CHOLECALCIFEROL 1,000 UNITS 25 MCG TAB PO SCH (08:37)
[2021-11-24] MEDS: HEPARIN SOD 5,000 UNIT/0.5 ML VIAL SQ SCH ×2 (08:37→21:39)
[2021-11-24] MEDS: LIDOCAINE 5% 1 PATCH TD SCH (09:47)
--- NOTE | 2021-11-24 13:41 | Pharmacy Report ---
Pharmacy Glycemic Short Note 2 - Date of Service November 24, 2021 - Glycemic Short BSG Results (Last 24 hours): 11/23/21 11/23/21 11/23/21 14:32 16:22 20:41 Glucose 325 H* POC Glucose 282 H 166 H 11/24/21 11/24/21 11/24/21 02:07 05:11 07:16 Glucose 103 H POC Glucose 128 H 103 H 11/24/21 11:06 Glucose POC Glucose 190 H OUTPATIENT ANTIDIABETIC REGIMEN: * Toujeo 50-53 units Q HS * Humalog 1 unit per 4 gm CHO consumed with breakfast and 1 unit per 2gm CHO consumed with lunch and dinner; in addition to sliding scale * A1c = 6.9% 07/19/21 ASSESSMENT: 11/24/21 * BSGs improved overnight with fasting BSG of 103 mg/dL this morning * Received 40 units of insulin yesterday (24 units of Lantus and 16 unit of Novolog) * No changes anticipated to current regimen today 11/23/21 * Patient with reported h/o type 1.5 vs type 1 dm who presented to the ED for fever, diarrhea, myalgias, sepsis from possible UTI * BLCXs are growing GNR likely e coli, Urine cx is also growing GNR * Patient's BSGs have been well controlled thus far on lower basal insulin doses. Given patient's h/o type 1 vs type 1.5 will need to monitor basal needs and PO intake closely as she may be prone to ketoacidosis if insulin delivery insufficient. She is currently ordered clear liquid diet. Will continue Lantus in lesser dose than outpt regimen provided, continue to split dose BID for dosing flexibility and titration purposes and dose per scale given uncertain needs with current stressors and change in diet. * Will base Novolog doses upon outpt insulin needs, but scaled back somewhat due to possibility of GI intolerance of diet. PLAN FOR INPATIENT GLYCEMIC CONTROL: * Hold outpatient oral diabetes medications * Basal insulin * Lantus SQ BID per scale: * 0 units if BSG less than 100 * 10 units if BSG 100-140 * 14 units if BSG 141-220 * 18 units if BSG greater than 220 * Bolus insulin * NovoLog per scale ACHS and at 0200 tonight * Goal Range: Low 110 mg/dL - High 160 mg/dL * Correction Factor: 15 mg/dL/unit * Nutritional / Prandial insulin per carb ratio of 1 unit per 5 grams CHO consumed
[2021-11-24] MEDS: BENZONATATE 100 MG CAPSULE PO PRN (16:48)
[2021-11-24] MEDS: ACETAMINOPHEN 325 MG TAB PO PRN (23:06)
[2021-11-25] MEDS: CEFEPIME 2,000 MG in SYRINGE 0 ML IV SCH (01:26)
[2021-11-25 07:37] LABS: Hematocrit (blood only) 30.3 % (34.1-44.9); Hemoglobin 10.7 g/dl (12.0-16.0); Mean Corpuscular Hemoglobin 31.7 pg (25.0-34.0); Mean Corpuscular Hgb Conc 35.3 g/dL (32.0-36.0); Mean Corpuscular Volume 89.6 fL (80.0-100.0); Mean Platelet Volume 9.3 fL (9.4-12.3); Platelet Count 148 K/uL (130-400); RDW Coefficient of Variation 13.9 % (11.5-14.5); RDW Standard Deviation 45.7 fL (36.4-46.3); Red Blood Count 3.38 M/uL (3.93-5.22); White Blood Count 11.21 K/ul (4.8-10.8)
[2021-11-25 08:03] LABS: BUN Creatinine Ratio 17.6 (10-20); Calcium 7.5 mg/dl (8.5-10.1); Creatinine Clr Calc Pharmacy 33.3 ml/min; Est GFR (Non-African American) 27.6 ml/min; Potassium 3.8 mmol/L (3.5-5.1)
[2021-11-25 08:07] LABS: Basophils % (auto) 0.9 %; Eosinophils # (auto) 0.25 K/uL (0-0.50); Eosinophils % (auto) 2.2 %; Immature Granulocytes # (auto) 0.79 K/uL (0.00-0.02); Lymphocytes # (auto) 1.57 K/uL (1.2-3.4); Monocytes # (auto) 1.28 K/uL (0.24-0.82); Monocytes % (auto) 11.4 %; Neutrophils # (auto) 7.22 K/uL (1.4-6.5); Neutrophils % (auto) 64.5 %
[2021-11-25] MEDS: ACETAMINOPHEN 325 MG TAB PO PRN (08:39)
[2021-11-25] MEDS: BENZONATATE 100 MG CAPSULE PO PRN (08:39)
[2021-11-25] MEDS: LANTUS PER UNIT CHARGE SQ SCH ×2 (08:40→21:58)
[2021-11-25] MEDS: INSULIN ASPART PER UNIT SC SCH ×4 (08:40→21:59)
[2021-11-25] MEDS: POTASSIUM CHLORIDE CRTAB 20 MEQ TABCR PO SCH ×2 (08:40→22:03)
[2021-11-25] MEDS: CHOLECALCIFEROL 1,000 UNITS 25 MCG TAB PO SCH (08:41)
[2021-11-25] MEDS: LIDOCAINE 5% 1 PATCH TD SCH (08:41)
[2021-11-25] MEDS: HEPARIN SOD 5,000 UNIT/0.5 ML VIAL SQ SCH ×2 (08:41→22:05)
[2021-11-25] MEDS: PANTOprazole 40 MG TAB PO SCH (08:41)
[2021-11-25 09:49] LABS: Adenovirus PCR Not Detected (NotDetected); Bordetella parapertussis PCR Not Detected (NotDetected); Bordetella pertussis PCR Not Detected (NotDetected); Chlamydia pneumoniae PCR Not Detected (NotDetected); Coronavirus 229E PCR Not Detected (NotDetected); Coronavirus CoV-2 (COVID19)PCR Not Detected (NotDetected); Coronavirus HKU1 PCR Not Detected (NotDetected); Coronavirus NL63 PCR Not Detected (NotDetected); Coronavirus OC43PCR Not Detected (NotDetected); Human Metapneumovirus PCR Not Detected (NotDetected); Influenza A PCR Not Detected (NotDetected); Influenza B PCR Not Detected (NotDetected); Mycoplasma pneumoniae PCR Not Detected (NotDetected); Parainfluenza Virus 1 PCR Not Detected (NotDetected); Parainfluenza Virus 2 PCR Not Detected (NotDetected); Parainfluenza Virus 3 PCR Not Detected (NotDetected); Parainfluenza Virus 4 PCR Not Detected (NotDetected); Respiratory Syncytial VirusPCR Not Detected (NotDetected); Rhinovirus/Enterovirus PCR Not Detected (NotDetected)
[2021-11-25] MEDS: NORMOSOL-R 1,000 ML IV SCH (10:27)
[2021-11-25] MEDS ORDERED: SODIUM CHLORIDE 0.65% NA SOLN 45 ML (OCEAN) STA (10:27)
--- NOTE | 2021-11-25 11:11 | Hospitalist Progress Note ---
Date of Service November 25, 2021 Assessment & Plan (1) Sepsis: (2) Acute kidney injury: (3) UTI (urinary tract infection): (4) Type 1 diabetes mellitus with diabetic retinopathy: (5) Hypertension: (6) Acid reflux: (7) Dyslipidemia: (8) Back pain: (9) Stage III chronic kidney disease: (10) Chronic cough: (11) Pulmonary vascular congestion: Plan Anamaria is a 75 year old female with type 1 diabetes, CKD, HTN, HLD, GERD admitted with sepsis and RODNEY secondary to diarrheal illness and urinary tract infection. #Sepsis--resolved - Secondary to E. Coli bacteremia and E. Coli urinary tract infection #E. Coli Bacteremia - Blood cultures / with gamino-sensitive E. Coli - Repeat blood cultures on 11/23 are NTD x 24 hours - D/C'ed vanc - Fever overnight so will switch antibiotic from cefepime to Zosyn for better coverage of enterobacter since this was on BioFire but did not grow out on culture # E. Coli Urinary Tract infection - culture growing gamino-sensitive E. Coli - Switched to Zosyn (above) - Patient continues to have CVA tenderness on the L side. Renal or perinephriti c abscess were not seen on imaging but further imaging in the future may be needed if symptoms do not resolve. #Recurrent Fevers with new leukocytosis -Despite adequate antibiotic coverage based on cultures -Respiratory BioFire is negative, repeat CXR this afternoon with interval improvement in left basilar consolidation -etiology of the fevers are unclear, may have a perinephritic or renal abscess vs. bacterial pneumonia vs enterobacterial. -Switched from cefepime to Zosyn to add coverage for enterobacter, but will also cover most pulmonary organisms with the exception of atypicals. - Could consider CT Abd/Pelvis if continues to have fevers and left flank pain to rule out renal or perinephritic abscess as this may require percutaneous drainage # RODNEY - prerenal with contribution of ATN - Cr is improving (5.12 on admission) to 1.76 today (baseline is 1.2-1.5) - Stopped IVF and encourage oral hydration. - appreciate nephrology recommendations - continue with renal dosing for antibiotics and avoiding nephrotoxic agents # Diarrhea: - less frequent but still having watery stool, suspect there is some element of post-infectious diarrhea now - Stool BioFire was negative. - PRN Imodium, Florastor - advance diet as tolerated # cough, acute on chronic - CXR today showed improvement in pulmonary edema. Pulmonary edema most likely secondary to aggressive IVF administration for sepsis. IVFs have been stopped. - Gave one time lasix 10mg push. Patient's symptoms improved slightly. - Can consider gentle diuresis if no improvement with decreased IVF rate overnight or if she worsens overnight (ie increased O2 requirement) - unknown etiology of chronic cough--has seen pulm (Dr. Whelan) and ENT in the past # decreased appetite - likely secondary to acute illness - added glucose control Boost to meals (chocolate) # elevated liver tests (resolved) - normal on 11/24. No need to continue to monitor. - T. Bili still slightly elevated at 1.5, AST and ALT have normalized, Alk P is close to normal # DM1 - basal bolus insulin - glycemic consult, appreciate recommendations as she starts to increase her oral intake # HTN - holding home ARB and HCTZ due to RODNEY - blood pressures have been in an acceptable range without anti-hypertensive - PRN labetalol ordered for SBP > 180 - if BPs are consistently elevated in the setting of RODNEY, can consider oral CCB for BP control #back pain - likely muscular etiology - continue topical lidocaine patch # GERD with Benavides's esophagitis - Protonix 40mg daily # Dyslipidemia - continue home pravastatin 10mg FEN: carb consistent DVT prophylaxis: subQ heparin Code Status: FULL Dispo: pending clinical improvement. PT/OT ordered Admission and Anticipated Discharge Date Admission Date: November 22, 2021 Supervising Physician Co-Signing Physician Notes Patient seen and examined independently of PGY-1 Dr. Camarillo. Agree with history, exam findings, assessment and plan of care as outlined. In brief, Anamaria is a 75 year old female with type 1 diabetes, CKD, HTN, HLD, GERD admitted with sepsis and RODNEY secondary to diarrheal illness and urinary tract infection. Continues to cough today. Wet sounding. No chills. Did have fever over night. VS and nursing notes reviewed. Ill-appearing. Heart with regular rate and rhythm. Trace edema in the bilateral lower extremities. Lungs with coarse breath sounds throughout. Abdomen is soft, nontender. Labs and imaging reviewed. On re-exam later this afternoon, patient appeared less ill. Sitting in the bedside chair eating from her tray. 1. Sepsis, urinary source + bacteremia. Appropriately fluid resuscitated. Stopped IVFs now that she is taking some PO. Cultures as below. 2. Bacteremia. Blood cultures with gamino sensitive E. Coli. Switched from Cefepime to Zosyn to cover for the Enterobacter that was positive on the BioFire but did not grow in her blood culture. Repeat blood cultures on 11/23 without growth x 24 hours (following previous reported fever on evening of 11/23). 3. Urinary tract infection. Gamino-sensitive E. Coli Awaiting speciation and sensitivities, although suspect this will be the same as blood cultures. 4. Recurrent fever. Broadened antibiotics for better coverage of Enterobacter that was positive on the BioFire but not on the culture. Respiratory BioFire negative. Repeat CXR with improving left basilar opacity. If febrile again overnight, please draw repeat blood cultures. Consider TTE to evaluate for vegetation or repeat CT Abd/Pelvis if left flank pain is worsening to evaluate for perinephric or renal abscess. 5. Loose stool. Improving in terms of frequency. Suspect this is post-infectious diarrhea. Advancing diet as tolerated. Started PRN imodium. Started Florastor. 6. RODNEY. Improving. Pre-renal with some contribution of ATN. Stopped IVFs now that she is taking PO. Appreciate nephrology recs. 7. electrolyte derangement. Repleting as indicated. 8. acute on chronic cough. Likely some contribution from slight fluid overload after aggressive fluid resuscitation for sepsis as seen on CXR. Given 10mg IV Lasix this morning with improve in pulmonary edema as seen on repeat CXR this afternoon. 9. DM1. basal bolus insulin. Appreciate glycemic consult recs. 10. HTN. BPs have been appropriate. Ok to give PRN beta sean for SBP > 180. Holding home ARB and HCTZ. If persistent elevation in her blood pressures, can consider adding oral CCB for better blood pressure control. Dispo: pending clinical improvement. Subjective Patient was seen bedside this AM. She states that she is feeling worse today and her cough has been getting a little worse and more productive. She also stated that she had two episodes of incontinence last night (BM) that were very watery. She denies any urinary issues and says the back pain feels better but still hurts bilaterally. Physical Exam Constitutional: + ill appearing pale Eyes: PERRL, conjunctivae normal, anicteric sclerae ENMT: external ear and nose normal, oropharynx normal Respiratory: normal respiratory effort, lungs clear to auscultation normal respiratory effort and + cough Auscultation: + rhonchi (BL) Cardiovascular: RRR, no murmur, no edema Gastrointestinal (Abdomen): normal bowel sounds, soft, nontender, no hepatosplenomegaly Musculoskeletal: L sided CVA tenderness Skin: no rashes, warm and dry Results & Data Results & Data ([facility]) Vital Signs (Past 12 Hours) Vital Signs Temp Pulse Pulse Pulse Resp BP Pulse Ox 11/25/21 09:56 87 11/25/21 08:14 37.8 C H 85 16 143/70 H 91 11/25/21 03:37 37 C 76 19 137/75 94 O2 Del Method 11/25/21 09:56 11/25/21 08:14 Room Air 11/25/21 03:37 Room Air
[2021-11-25] MEDS ORDERED: MICONAZOLE NITRATE POWDER 43 GM EXT PRN (11:24)
[2021-11-25] MEDS ORDERED: LOPERAMIDE HCL 2 MG CAP PO ONE (11:36)
--- NOTE | 2021-11-25 11:49 | Nephrology Progress Note ---
Date of Service November 25, 2021 Assessment & Plan (1) Acute kidney injury: Plan: * Recovery phase. Nonoliguric. Cr improved from 5.1 to 1.7 (baseline 1.2 - 1.5) * Will heplock IV and encourage oral hydration * BP remains acceptable. Continue to hold Losartan and HCTZ * Monitor PRP (2) Stage III chronic kidney disease: Plan: * CKD stage G3/A2. Baseline creatinine 1.2-1.5 mg/dL. CKD attributed to DKD. (3) Hypertension: Plan: * BP remains acceptable. Continue to hold Losartan and HCTZ (4) Gram-negative bacteremia: Plan: * 11/22/21 blood and urine cultures were positive for E. Coli * Continued low grade fever, mild leukocytosis * Remains on IV cefepime * 11/23/21 blood cultures are negative Admission and Anticipated Discharge Date Admission Date: November 22, 2021 Subjective Mrs. Deshpande was evaluated in her hospital room this morning. She reports that her diarrhea has resolved and she is tolerating a regular diet. She continues to have a low grade fever. Review of Systems Constitutional: no fever Eyes: no problem reported Ear, Nose, Mouth, Throat: no problem reported Respiratory: no cough and no dyspnea Cardiovascular: no chest pain Gastrointestinal: no abdominal pain and no diarrhea/loose stools Genitourinary: no dysuria Physical Exam Constitutional: not in distress Eyes: PERRL, conjunctivae normal, anicteric sclerae ENMT: external ear and nose normal, oropharynx normal Neck: trachea midline, no thyromegaly Respiratory: normal respiratory effort, lungs clear to auscultation Cardiovascular: RRR, no murmur, no edema Gastrointestinal (Abdomen): normal bowel sounds, soft, nontender, no hepatosplenomegaly Skin: no rashes, warm and dry Neurologic: awake; not confused Results & Data ([facility]) Vital Signs (Past 12 Hours) Vital Signs Temp Pulse Pulse Pulse Resp BP Pulse Ox 11/25/21 09:56 87 11/25/21 08:14 37.8 C H 85 16 143/70 H 91 11/25/21 03:37 37 C 76 19 137/75 94 O2 Del Method 11/25/21 09:56 11/25/21 08:14 Room Air 11/25/21 03:37 Room Air Laboratory Results Laboratory Tests 07/11/25/21 11/25/21 05:11 06:52 06:52 WBC 11.21 H Hgb 10.7 L Hct 30.3 L Plt Count 148 Sodium 134 L Potassium 3.8 Chloride 102 Carbon Dioxide 22 BUN 31 H Creatinine 1.76 H D Glucose 133 H Calcium 7.5 L Magnesium 2.0 Albumin 2.6 L PG Care Time/CCT Total # of Minutes Spent Total Time Spent with Patient: Total time spent is greater than 50% in coordination of care (as documented) at patient's floor/unit and/or counseling patient: Coding Level of Care Code 90837 Subseq Hosp Care Lvl 3 Diagnoses Acute kidney injury N17.9 Stage III chronic kidney disease N18.3 Hypertension I10 Gram-negative bacteremia R78.81
[2021-11-25] MEDS ORDERED: PIPERACILLIN/TAZOBACTAM 4.5 GM in DEXTROSE 5% 100 ML IV ONE (12:00)
[2021-11-25] MEDS ORDERED: CEFEPIME 2,000 MG in SYRINGE 0 ML IV SCH (12:00)
[2021-11-25] MEDS: SACCHAROMYCES BOULARDII 250 MG CAP PO SCH (12:50)
[2021-11-25] MEDS ORDERED: FUROSEMIDE INJ 20 MG/2 ML VIAL IV ONE (13:47)
--- NOTE | 2021-11-25 14:28 | XRay Report ---
XR chest 1V portable CLINICAL HISTORY: cough, fever COMPARISON STUDY: Chest radiograph November 23, 2021. FINDINGS: Lung volumes are normal. There are trace bilateral pleural effusions. No pneumothorax. Card iomegaly is unchanged. Interstitial thickening has slightly improved. Left basilar opacity is slightl y improved. IMPRESSION: 1. Interval improvement in pulmonary edema and left basilar opacity. 2. Trace bilateral pleural effusions. 3. Stable cardiomegaly ACT 112: Negative or not required by law. Electronically signed by: Jai Kaplan M.D. 11/25/2021 2:27 PM
[2021-11-25] MEDS: PIPERACILLIN/TAZOBACTAM 4.5 GM in DEXTROSE 5% 100 ML IV SCH (17:28)
--- NOTE | 2021-11-25 18:45 | Electrocardiogram Report ---
Test Reason : Blood Pressure : / mmHG Vent. Rate : 086 BPM Atrial Rate : 086 BPM P-R Int : 184 ms QRS Dur : 090 ms QT Int : 406 ms P-R-T Axes : 052 -09 042 degrees QTc Int : 485 ms Normal sinus rhythm Prolonged QT When compared with ECG of 23-NOV-2021 06:06, No significant change was found Confirmed by Eusebio Calix ([id number]) on 11/25/2021 6:45:12 PM Referred By: Td Foster Confirmed By:Eusebio Calix
[2021-11-26] MEDS: PIPERACILLIN/TAZOBACTAM 4.5 GM in DEXTROSE 5% 100 ML IV SCH (02:08)
[2021-11-26 06:43] LABS: Hematocrit (blood only) 31.1 % (34.1-44.9); Hemoglobin 10.8 g/dl (12.0-16.0); Mean Corpuscular Hemoglobin 31.3 pg (25.0-34.0); Mean Corpuscular Hgb Conc 34.7 g/dL (32.0-36.0); Mean Corpuscular Volume 90.1 fL (80.0-100.0); Mean Platelet Volume 9.6 fL (9.4-12.3); Platelet Count 187 K/uL (130-400); RDW Coefficient of Variation 13.9 % (11.5-14.5); RDW Standard Deviation 45.6 fL (36.4-46.3); Red Blood Count 3.45 M/uL (3.93-5.22); White Blood Count 14.34 K/ul (4.8-10.8)
[2021-11-26 07:04] LABS: Potassium 4.6 mmol/L (3.5-5.1)
[2021-11-26 07:05] LABS: Albumin Globulin Ratio 0.9 (0.9-2); Albumin Level 2.8 gm/dl (3.4-5.0); BUN Creatinine Ratio 14.6 (10-20); Bilirubin,Total 2.1 mg/dl (0.2-1.0); Calcium 7.9 mg/dl (8.5-10.1); Creatinine Clr Calc Pharmacy 29.3 ml/min; Est GFR (African American) 27.6 ml/min; Est GFR (Non-African American) 23.8 ml/min; Total Protein 5.8 gm/dl (6.0-8.3)
[2021-11-26 07:07] LABS: Basophils # (auto) 0.13 K/uL (0-0.2); Basophils % (auto) 0.9 %; Eosinophils # (auto) 0.36 K/uL (0-0.50); Eosinophils % (auto) 2.5 %; Immature Granulocytes # (auto) 1.23 K/uL (0.00-0.02); Immature Granulocytes % (auto) 8.6 %; Lymphocytes # (auto) 2.46 K/uL (1.2-3.4); Lymphocytes % (auto) 17.2 %; Monocytes # (auto) 1.31 K/uL (0.24-0.82); Monocytes % (auto) 9.1 %; Neutrophils # (auto) 8.85 K/uL (1.4-6.5); Neutrophils % (auto) 61.7 %; RBC Morphology Unremarkable
--- NOTE | 2021-11-26 08:28 | Hospitalist Progress Note ---
Date of Service November 26, 2021 Assessment & Plan (1) Sepsis: (2) Acute kidney injury: (3) UTI (urinary tract infection): (4) Type 1 diabetes mellitus with diabetic retinopathy: (5) Hypertension: (6) Acid reflux: (7) Dyslipidemia: (8) Back pain: (9) Stage III chronic kidney disease: (10) Chronic cough: (11) Pulmonary vascular congestion: Plan Patient had sepsis 2/2 E. Coli bacteremia and RODNEY stemming from a UTI or GI source. Patient has been clinically improving though today, patient's WBC, creatine, bilirubin, AST, and Alk stephanie increased. CT w/o was ordered today due to patient's contrast allergy and RODNEY. MRCP will be preformed today. Results pending. Patient will need an ERCP but can not get one here at this time. Will transfer to [facility] in [place] to have ERCP performed by Dr. Wang due to the patient not being clinically stable to do the procedure outpatient. #Pancreatic duct calculus: -CT of the abdomen/pelvis that indicated a large, 9 mm stone in the pancreatic duct. -EUS performed last month by Dr. Wang showed a pancreatic duct measured up to 6 mm in diameter. -MRCP will be preformed today. Pending results. -GI recommends ERCP #sepsis - Secondary to E. Coli bacteremia and E. Coli urinary tract infection -Resolving, patient though has fevers from time to time. Temperature has been normal for the past 2 days. #E. Coli Bacteremia - Blood cultures 2/2 with gamino-sensitive E. Coli - Repeat blood cultures on 11/23 are NTD - Started on Cefepime, switched to Zosyn on 11/25. # E. Coli Urinary Tract infection - culture growing gamino-sensitive E. Coli - Switched to Zosyn (above) - Patient continues to have mild L sided CVA tenderness and LUQ pain - Patient has increase Will obtain CT #Recurrent Fevers with new leukocytosis -Despite adequate antibiotic coverage based on cultures - Could consider CT Abd/Pelvis if continues to have fevers and left flank pain to rule out renal or perinephritic abscess as this may require percutaneous drainage. Ordered which showed no abscess but study limited by no contrast. # RODNEY on CKD III - CKD stage G3/A2. Baseline creatinine 1.2-1.5 mg/dL. CKD attributed to DKD - Recovery phase. Nonoliguric. - Cr improved from 5.1 to 1.98 (baseline 1.2 - 1.5) - Encourage oral hydration - BP remains acceptable. Continue to hold Losartan and HCTZ # Diarrhea: - less frequent but still having watery stool, suspect there is some element of post-infectious diarrhea now - Stool BioFire was negative. - PRN Imodium, Florastor - advance diet as tolerated # cough, acute on chronic - CXR today showed improvement in pulmonary edema. Pulmonary edema most likely secondary to aggressive IVF administration for sepsis. IVFs have been stopped. - Gave one time lasix 10mg push. Patient's symptoms improved slightly. - Can consider gentle diuresis if no improvement with decreased IVF rate overnight or if she worsens overnight (ie increased O2 requirement) - unknown etiology of chronic cough--has seen pulm (Dr. Whelan) and ENT in the past # decreased appetite - likely secondary to acute illness - added glucose control Boost to meals (chocolate) # elevated liver tests (resolved) - normal on 11/24. No need to continue to monitor. - T. Bili still slightly elevated at 1.5, AST and ALT have normalized, Alk P is close to normal # DM1 - basal bolus insulin - glycemic consult, appreciate recommendations as she starts to increase her oral intake # HTN - holding home ARB and HCTZ due to RODNEY - blood pressures have been in an acceptable range without anti-hypertensive - PRN labetalol ordered for SBP > 180 - if BPs are consistently elevated in the setting of RODNEY, can consider oral CCB for BP control #back pain - likely muscular etiology - continue topical lidocaine patch # GERD with Benavides's esophagitis - Protonix 40mg daily # Dyslipidemia - continue home pravastatin 10mg FEN: carb consistent DVT prophylaxis: subQ heparin Code Status: FULL Dispo: transfer to [facility] Admission and Anticipated Discharge Date Admission Date: November 22, 2021 Supervising Physician Co-Signing Physician Notes Patient seen and examined concurrent with Dr. Camarillo. Agree with history, exam findings, assessment and plan of care as outlined. Upon examination today, the patient is semi reclined in bed talking with family. She reports feeling improved overall, compared to yesterday. No specific complaints. VS as noted NAD. A/O. CV regular. ABD soft and non tender. She does have some focal tenderness left inferior most rib, anteriorly. No CVA tenderness appreciated today/ Pancreatic calculus, awaiting transfer to [facility] Trend LFTs MRCP today Cystitis, although clinically improved this afternoon Gram Negative bacteremia Continue Zoysn Consider renal US tomorrow to exclude perinephric abscess (if not continued improvement) Additional as noted in resident documentation Subjective Patient was seen bedside this afternoon. She states that she feels worse then yesterday with some epigastric pain especially when she coughs. She only complains of some ear pain with radiating pain on the left side of her face that comes and goes. She denies any CP, palapations, back pain, SOB, or changes in urination. She has had BM and has been urinating 5-6 x overnight. Review of Systems Review of Systems: All systems reviewed & are unremarkable except as noted in HPI & below Physical Exam Constitutional: well developed, + ill appearing and + well hydrated Eyes: PERRL, conjunctivae normal, anicteric sclerae ENMT: external ear and nose normal, oropharynx normal Respiratory: normal respiratory effort, lungs clear to auscultation normal respiratory effort and + cough Cardiovascular: RRR, no murmur, no edema Gastrointestinal (Abdomen): Inspection/Auscultation: normal bowel sounds Percussion/Palpation: + abdomen tender (URQ deep palpation tenderness ) and abdomen soft Musculoskeletal: no cyanosis or clubbing, extremities motor strength 5/5 Skin: no rashes, warm and dry Results & Data Results & Data ([facility]) Vital Signs (Past 12 Hours) Vital Signs Temp Pulse Pulse Pulse Pulse Resp BP 11/26/21 08:00 36.8 C 80 20 11/26/21 07:34 36.9 C 83 20 150/72 H 11/26/21 07:00 83 11/25/21 22:20 96 H 11/26/21 02:44 36.9 C 88 18 11/26/21 02:23 11/25/21 22:40 37.5 C 85 18 BP Pulse Ox O2 Del Method 11/26/21 08:00 152/74 H 93 Room Air 11/26/21 07:34 93 Room Air 11/26/21 07:00 11/25/21 22:20 11/26/21 02:44 147/71 H 92 Room Air 11/26/21 02:23 Room Air 11/25/21 22:40 160/77 H 92 Room Air Resident Activity Tracking Resident Involvement: Resident Care Provided Care Provided: Adult Hospital Medicine
--- NOTE | 2021-11-26 08:29 | Nephrology Progress Note ---
Date of Service November 26, 2021 Assessment & Plan (1) Acute kidney injury: Plan: * Recovery phase. Nonoliguric. Cr improved from 5.1 to 1.98 (baseline 1.2 - 1.5) * Encourage oral hydration * BP remains acceptable. Continue to hold Losartan and HCTZ * Monitor PRP (2) Stage III chronic kidney disease: Plan: * CKD stage G3/A2. Baseline creatinine 1.2-1.5 mg/dL. CKD attributed to DKD. (3) Hypertension: Plan: * BP remains acceptable. Continue to hold Losartan and HCTZ (4) Gram-negative bacteremia: Plan: * 11/22/21 blood and urine cultures were positive for E. Coli * PCR was + for enterococcus * Continued low grade fever, mild leukocytosis * Cefipime changed to IV Zosyn * 11/23/21 blood cultures are negative * Follow up abdominal CT is pending Admission and Anticipated Discharge Date Admission Date: November 22, 2021 Subjective Mrs. Deshpande was evaluated in her hospital room this morning. She reports that her diarrhea has resolved. She continues to have a low grade fever and is awaiting follow up abdominal CT. Review of Systems Constitutional: no fever Eyes: no problem reported Ear, Nose, Mouth, Throat: no problem reported Respiratory: no cough and no dyspnea Cardiovascular: no chest pain Gastrointestinal: no abdominal pain and no diarrhea/loose stools Genitourinary: no dysuria Physical Exam Constitutional: not in distress Eyes: PERRL, conjunctivae normal, anicteric sclerae ENMT: external ear and nose normal, oropharynx normal Neck: trachea midline, no thyromegaly Respiratory: normal respiratory effort, lungs clear to auscultation Cardiovascular: RRR, no murmur, no edema Gastrointestinal (Abdomen): normal bowel sounds, soft, nontender, no hepatosplenomegaly Skin: no rashes, warm and dry Neurologic: awake; not confused Results & Data ([facility]) Vital Signs (Past 12 Hours) Vital Signs Temp Pulse Pulse Pulse Pulse Resp BP 11/26/21 08:00 36.8 C 80 20 11/26/21 07:34 36.9 C 83 20 150/72 H 11/26/21 07:00 83 11/25/21 22:20 96 H 11/26/21 02:44 36.9 C 88 18 11/26/21 02:23 11/25/21 22:40 37.5 C 85 18 BP Pulse Ox O2 Del Method 11/26/21 08:00 152/74 H 93 Room Air 11/26/21 07:34 93 Room Air 11/26/21 07:00 11/25/21 22:20 11/26/21 02:44 147/71 H 92 Room Air 11/26/21 02:23 Room Air 11/25/21 22:40 160/77 H 92 Room Air Laboratory Results Laboratory Tests 11/26/21 11/26/21 05:44 05:44 WBC 14.34 H Hgb 10.8 L Hct 31.1 L Plt Count 187 Sodium 133 L Potassium 4.6 D Chloride 102 Carbon Dioxide 22 BUN 29 H Creatinine 1.98 H Glucose 118 H Calcium 7.9 L Total Bilirubin 2.1 H Albumin 2.8 L PG Care Time/CCT Total # of Minutes Spent Total Time Spent with Patient: Total time spent is greater than 50% in coordination of care (as documented) at patient's floor/unit and/or counseling patient: Coding Level of Care Code 75945 Subseq Hosp Care Lvl 3 Diagnoses Acute kidney injury N17.9 Stage III chronic kidney disease N18.3 Hypertension I10 Gram-negative bacteremia R78.81
[2021-11-26] MEDS: INSULIN ASPART PER UNIT SC SCH ×4 (09:28→22:04)
[2021-11-26] MEDS: LANTUS PER UNIT CHARGE SQ SCH ×2 (09:56→22:06)
[2021-11-26] MEDS: HEPARIN SOD 5,000 UNIT/0.5 ML VIAL SQ SCH ×2 (10:03→19:23)
[2021-11-26] MEDS: CHOLECALCIFEROL 1,000 UNITS 25 MCG TAB PO SCH (10:03)
[2021-11-26] MEDS: LIDOCAINE 5% 1 PATCH TD SCH (10:03)
[2021-11-26] MEDS: SACCHAROMYCES BOULARDII 250 MG CAP PO SCH (10:04)
[2021-11-26] MEDS: PANTOprazole 40 MG TAB PO SCH (10:04)
[2021-11-26] MEDS: POTASSIUM CHLORIDE CRTAB 20 MEQ TABCR PO SCH ×2 (10:07→19:24)
--- NOTE | 2021-11-26 10:07 | CT Scan Report ---
CT SCAN OF THE ABDOMEN AND PELVIS WITHOUT IV CONTRAST CLINICAL HISTORY: Elevated hepatic transaminases COMPARISON STUDY: Abdominal CT dated 11/22/2021. TECHNIQUE: CT scan of the abdomen and pelvis is performed from the lung bases to the proximal femora. Images are reviewed in the axial, sagittal, and coronal planes. IV contrast was not administered for this examination as per the referring clinician. Note that the examination was performed in signific antly suboptimal fashion without oral and IV contrast. A dose lowering technique was utilized adherin g to the principles of ALARA. CT DOSE: 939.07 mGy.cm FINDINGS: Lung bases: The heart is normal in size noting trace pericardial effusion. There are trace pleural ef fusions with dependent atelectasis. A small hiatal hernia is identified. Liver: The unenhanced liver is enlarged, measuring 20.5 cm in length. Hepatic attenuation is slightly diminished suggesting steatosis. There is no intrahepatic biliary ductal dilatation. Gallbladder: There are numerous calcified gallstones with no CT evidence of acute cholecystitis. Spleen: Normal in size and attenuation. Pancreas: The unenhanced pancreas is atrophic. There is a 9 mm calculus within the pancreatic duct se en on image #148. There is mild dilatation of the upstream pancreatic duct with additional parenchyma l and ductal calcifications. 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 Adrenal glands: Unremarkable. Kidneys: The unenhanced kidneys demonstrate mild cortical atrophy and are without hydronephrosis. The re are no renal calculi identified. There is no evidence of contour deforming renal mass lesion. Ther e is asymmetric left-sided perinephric stranding. Abdominal vasculature: The abdominal aorta is normal in course and caliber noting moderate to advance d atherosclerotic calcification. Bowel: There is moderate colonic diverticulosis without CT evidence of acute diverticulitis. No bowel obstruction is seen. The appendix is normal as visualized. Peritoneum: There is no intraperitoneal free air or abdominal ascites. There is a fat-containing umbi lical hernia. Lymphadenopathy: None. Pelvic viscera: The bladder wall is mildly thickened and there are surrounding infiltration. The uter us and adnexa are normal as visualized. There is a fat-containing left groin hernia. Skeletal structures: The skeletal structures are osteopenic. There is mild lumbosacral spondylosis. N o lytic or blastic lesions are seen. Soft tissues: There is body wall edema. IMPRESSION: 1. Findings again suggested cystitis with left-sided ascending urinary tract infection/pyelonephritis . Correlate with clinical findings and urinalysis. 2. Cholelithiasis. 3. Hepatomegaly and mild steatosis. 4. Trace pleural effusions are new from previous and there is body wall edema, likely related to hydr ation status. 5. Colonic diverticulosis without CT evidence of acute diverticulitis. 6. A large calculus is present within the pancreatic duct. There is no CT evidence of acute pancreati tis. 7. Additional findings as above. ACT 112: Negative or not required by law. Electronically signed by: Sanya Meeks M.D. 11/26/2021 10:06 AM
[2021-11-26] MEDS: PIPERACILLIN/TAZOBACTAM 3.375 GM in DEXTROSE 5% 100 ML IV SCH ×2 (10:41→17:59)
--- NOTE | 2021-11-26 11:37 | Gastrointestinal Consultation ---
Date of Consultation November 26, 2021 Assessment & Plan (1) Pancreatic duct calculus: 1) Continue IV Zosyn at present. 2) Monitor LFTs including direct bilirubin. 3) Consider an MRCP to assess biliary tree and stone size further, however ultimately I discussed with the hospitalist that I recommend contacting her advanced GI in [place] to discuss the interval change since her EUS last month. If they feel she needs an ERCP, this would necessitate transfer to a different hospital as there is no ERCP coverage this week at [facility]. Supervising Physician Co-Signing Physician Notes Agree with APRIL Mccabe as above Abd: Soft, NT, ND, +BS Continue current therapy and supportive care MRCP just completed [facility] notified and awaiting transfer Further recommendations to follow above noted testing. History of Present Illness Reason for Consultation: 9 mm stone in pancreatic duct Attending Physician: Farahd Avina DO History of Present Illness Patient is a 75 yo female with DM, thyroid nodule, DM, CKD3, HTN, HLD, obesity, hematuria, superficial DVT, diverticulosis, GERD. She was admitted to [facility] with gram negative bacteremia--urine & blood cultures positive for E Coli. She also has had positive PCR testing for enterobacter. She came into the hospital with complaints of diarrhea, myalgias, fevers, and decreased po intake. She notes that these began this past weekend. She is currently on IV Zosyn. During her stay, her WBC count has remained elevated and is presently 14,340. She had a CT of the abdomen/pelvis that indicated a large, 9 mm stone in the pancreatic duct. Her AST and ALT have been fairly unremarkable, however her Total bilirubin was noted to be elevated going from 1.5 yesterday to 2.1 today. Nephrology is following for RODNEY on CKD. No pertinent family history. Patient's daughter notes that she had an EUS 1 month ago in [place] because this pancreatic stone was seen previously. She notes that at that time they were told it was a 5 mm stone. Allergies Allergy/AdvReac Type Severity Reaction Status Date / Time Iodinated Contrast Media Allergy Mild Unknown Verified 11/22/21 12:12 iodine Allergy Mild Unknown Verified 11/22/21 12:12 apixaban [From Eliquis] AdvReac Mild Hives Verified 11/22/21 12:12 atorvastatin AdvReac Mild leg cramps Verified 11/22/21 12:12 rosuvastatin AdvReac Mild leg cramps Verified 11/22/21 12:12 simvastatin AdvReac Mild leg cramps Verified 11/22/21 12:12 Home Medications Medication Instructions Recorded Confirmed Type blood-glucose meter,continuous #1 ea 10/20/20 11/22/21 History ([employer]) blood-glucose sensor (Dexcom G6 #3 ea 10/20/20 11/22/21 History Sensor) blood-glucose transmitter (Dexcom #1 ea 10/20/20 11/22/21 History G6 Transmitter) cholecalciferol (vitamin D3) 25 25 mcg PO DAILY 10/20/20 11/22/21 History mcg (1,000 unit) capsule pravastatin 10 mg tablet 10 mg PO .COMPLEX #30 tabs 02/06/21 11/22/21 Rx pen needle, diabetic 32 gauge x #500 ea 03/15/21 11/22/21 Rx 5/32" (BD Ultra-Fine Fela Pen Needle) hydrochlorothiazide 25 mg tablet 25 mg PO DAILY #90 tabs 05/07/21 11/22/21 Rx omeprazole 40 mg capsule,delayed 40 mg PO DAILY #90 caps 05/07/21 11/22/21 Rx release insulin lispro 100 unit/mL 150 unit (1.5 mL) subcut .COMPLEX 05/10/21 11/22/21 Rx subcutaneous pen (Humalog KwikPen #135 mL (U-100) Insulin) losartan 100 mg tablet 100 mg PO DAILY #90 tabs 06/22/21 11/22/21 Rx insulin glargine U-300 conc 300 53 unit (0.1767 mL) subcut HS #18 08/02/21 11/22/21 Rx unit/mL (1.5 mL) subcutaneous pen mL (Toujeo SoloStar U-300 Insulin) Patient History Medical History Acid reflux Stable and controlled - does have increased secretions at times. Benavides esophagus Cough Chronic x one year- stable- secondary to allergies DVT (deep venous thrombosis) june 2019 > right leg > from low activity levels > xarelto Dyslipidemia Hypertension Osteoporosis Solitary thyroid nodule just monitoring Stage III chronic kidney disease sees Dr. 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 Glucose stable Type 1 diabetes mellitus, uncontrolled Surgical History H/O cataract extraction bilat History of adenoidectomy History of bilateral oophorectomy History of biopsy of bladder History of colonoscopy History of dilatation and curettage History of esophagogastroduodenoscopy (EGD) History of ligation of vein bilat legs History of resection of small bowel over 50 yrs ago History of tonsillectomy History of tooth extraction Hx of biopsy pancreas> cysts are benign Hx of oophorectomy left Family History Father Cardiovascular disease COPD (chronic obstructive pulmonary disease) Family history of cerebrovascular accident Myocardial infarction Stroke Mother Cardiovascular disease Family history of diabetes mellitus Hypertension Family history of cerebrovascular accident Stroke Sister Family history of coronary artery disease Family/Other Ovarian cancer Denies family history of Prostate cancer Breast cancer Colorectal cancer Social History Smoking Status: Never smoker Second Hand Exposure: Yes (as kid); Hx Alcohol Use: No Hx Substance Use: No Preferred Language: Amharic Communication Ability: Effective Visual Impairment: No Limitations Hearing Ability: Normal Cable Respooler Required: No Beliefs That Will Affect Care: None marital status: Current Living Situation: Spouse current occupational status: retired How many Children do You have: 3 How many Children do You have Comment: 1 girl 2 boy Other Information That Helps Us Care for You: No Feels Safe at Home: Yes Safety Concerns: Feels Safe At This Time Childhood Exposure to Second-Hand Smoke: Yes during the past year weight has: remained stable Dental Care, Regularly: Yes Physical Activity Frequency: Daily Seatbelt Use: always Sunscreen Use: Yes Assistive Devices: None Review of Systems Constitutional: + fatigue Respiratory: no cough and no dyspnea Cardiovascular: no chest pain Gastrointestinal: + abdominal pain and + diarrhea/loose stools Psychiatric: no problem reported Hematologic / Lymphatic: no unexplained weight loss Physical Exam Constitutional: WD/WN, vitals as above Respiratory: normal respiratory effort Cardiovascular: Rate/Rhythm: regular rate and regular rhythm Gastrointestinal (Abdomen): Inspection/Auscultation: abdomen normal to inspection Musculoskeletal: Head/Neck/Chest: normocephalic Psychiatric: Orientation: alert and oriented x 3 Results & Data ([facility]) Vital Signs (Past 12 Hours) Vital Signs Temp Pulse Pulse Pulse Pulse Resp BP 11/26/21 08:00 36.8 C 80 20 11/26/21 07:34 36.9 C 83 20 150/72 H 11/26/21 07:00 83 11/26/21 02:44 36.9 C 88 18 11/26/21 02:23 BP Pulse Ox O2 Del Method 11/26/21 08:00 152/74 H 93 Room Air 11/26/21 07:34 93 Room Air 11/26/21 07:00 11/26/21 02:44 147/71 H 92 Room Air 11/26/21 02:23 Room Air PG Care Time/CCT Total # of Minutes Spent Total Time Spent with Patient: Total time spent is greater than 50% in coordination of care (as documented) at patient's floor/unit and/or counseling patient: Coding Level of Care Code 28113 Initial Inpt Care Lvl 3 Diagnoses Pancreatic duct calculus K86.89
[2021-11-26] MEDS: BENZONATATE 100 MG CAPSULE PO PRN (14:01)
[2021-11-26 14:02] LABS: Albumin Globulin Ratio 0.9 (0.9-2); Albumin Level 3.1 gm/dl (3.4-5.0); Bilirubin Direct 1.2 mg/dl (0-0.2); Bilirubin,Total 2.4 mg/dl (0.2-1.0); Calcium 8.6 mg/dl (8.5-10.1); Est GFR (African American) 27.2 ml/min; Est GFR (Non-African American) 23.5 ml/min; Globulin 3.4 gm/dl (2.5-4.0); Potassium 4.8 mmol/L (3.5-5.1); Total Protein 6.5 gm/dl (6.0-8.3)
[2021-11-26] MEDS: PRAVASTATIN SOD 10 MG TAB PO SCH (19:24)
[2021-11-27] MEDS: ACETAMINOPHEN 325 MG TAB PO PRN (02:31)
[2021-11-27] MEDS: PIPERACILLIN/TAZOBACTAM 3.375 GM in DEXTROSE 5% 100 ML IV SCH ×3 (02:32→17:33)
[2021-11-27] MEDS: BENZONATATE 100 MG CAPSULE PO PRN ×2 (03:04→16:54)
--- NOTE | 2021-11-27 06:49 | Hospitalist Progress Note ---
Date of Service November 27, 2021 Assessment & Plan (1) Sepsis: (2) Acute kidney injury: (3) UTI (urinary tract infection): (4) Type 1 diabetes mellitus with diabetic retinopathy: (5) Hypertension: (6) Acid reflux: (7) Dyslipidemia: (8) Back pain: (9) Stage III chronic kidney disease: (10) Chronic cough: (11) Pulmonary vascular congestion: Plan Update: Currently awaiting transfer to [facility] for ERCP. Continue to monitor LFTs daily while admitted at [facility] and continue IV Zosyn. No changes in management. Labs are looking better. Patient had sepsis 2/2 E. Coli bacteremia and RODNEY stemming from a UTI or GI source. Patient has been clinically improving though today, patient's WBC, creatine, bilirubin, AST, and Alk stephanie increased. CT w/o was ordered today due to patient's contrast allergy and RODNEY. MRCP will be preformed today. Results pending. Patient will need an ERCP but can not get one here at this time. Will transfer to [facility] in [place] to have ERCP performed by Dr. Wang due to the patient not being clinically stable to do the procedure outpatient. #Pancreatic duct calculus: -CT of the abdomen/pelvis that indicated a large, 9 mm stone in the pancreatic duct. -EUS performed last month by Dr. Wang showed a pancreatic duct measured up to 6 mm in diameter. -MRCP will be preformed today. Pending results. -GI recommends ERCP #sepsis - Secondary to E. Coli bacteremia and E. Coli urinary tract infection -Resolving, patient though has fevers from time to time. Temperature has been normal for the past 2 days. #E. Coli Bacteremia - Blood cultures 2/2 with gamino-sensitive E. Coli - Repeat blood cultures on 11/23 are NTD - Started on Cefepime, switched to Zosyn on 11/25. # E. Coli Urinary Tract infection - culture growing gamino-sensitive E. Coli - Switched to Zosyn (above) - Patient continues to have mild L sided CVA tenderness and LUQ pain - Patient has increase Will obtain CT #Recurrent Fevers with new leukocytosis -Despite adequate antibiotic coverage based on cultures - Could consider CT Abd/Pelvis if continues to have fevers and left flank pain to rule out renal or perinephritic abscess as this may require percutaneous drainage. Ordered which showed no abscess but study limited by no contrast. # RODNEY on CKD III - CKD stage G3/A2. Baseline creatinine 1.2-1.5 mg/dL. CKD attributed to DKD - Recovery phase. Nonoliguric. - Cr improved from 5.1 to 1.98 (baseline 1.2 - 1.5) - Encourage oral hydration - BP remains acceptable. Continue to hold Losartan and HCTZ # Diarrhea: - less frequent but still having watery stool, suspect there is some element of post-infectious diarrhea now - Stool BioFire was negative. - PRN Imodium, Florastor - advance diet as tolerated # cough, acute on chronic - CXR today showed improvement in pulmonary edema. Pulmonary edema most likely secondary to aggressive IVF administration for sepsis. IVFs have been stopped. - Gave one time lasix 10mg push. Patient's symptoms improved slightly. - Can consider gentle diuresis if no improvement with decreased IVF rate o vernight or if she worsens overnight (ie increased O2 requirement) - unknown etiology of chronic cough--has seen pulm (Dr. Whelan) and ENT in the past # decreased appetite - likely secondary to acute illness - added glucose control Boost to meals (chocolate) # elevated liver tests (resolved) - normal on 11/24. No need to continue to monitor. - T. Bili still slightly elevated at 1.5, AST and ALT have normalized, Alk P is close to normal # DM1 - basal bolus insulin - glycemic consult, appreciate recommendations as she starts to increase her oral intake # HTN - holding home ARB and HCTZ due to RODNEY - blood pressures have been in an acceptable range without anti-hypertensive - PRN labetalol ordered for SBP > 180 - if BPs are consistently elevated in the setting of RODNEY, can consider oral CCB for BP control #back pain - likely muscular etiology - continue topical lidocaine patch # GERD with Benavides's esophagitis - Protonix 40mg daily # Dyslipidemia - continue home pravastatin 10mg FEN: carb consistent DVT prophylaxis: subQ heparin Code Status: FULL Dispo: transfer to [facility] Admission and Anticipated Discharge Date Admission Date: November 22, 2021 Supervising Physician Co-Signing Physician Notes I personally examined the patient and verified all littlejohn points of history and exam, discussed case, and agree with decision making with Dr Camarillo Feeling okay. No new complaints. Still awaiting transfer to [facility]. Answered all questions to the best my ability. Vitals noted, in general she is awake and alert pleasant no distress. HEENT normocephalic atraumatic mucous membranes moist. Breathing unlabored no accessory muscle use good effort. Skin shows no rashes no pallor or icterus. Neuro without focal deficits. Sepsis/gram-negative bacteremiaappears stable. Have to be concerned about biliary source given her bilirubin and stone in common bile duct. Urine culture does raise the question of UTI with sepsis/bacteremiabut with stone bilirubin etc.cholangitis/biliary infection absolutely must be diagnosis of exclusionhence transfer for ERCP as soon as it can be facilitated. UTI likely cystis. Mild Acute pulmonary edema treated and resolvednow stable Subjective Patient was seen beside this afternoon. She is currently awaiting transfer. No real issues over night or today. She does c/o of ear/jaw pain that has been going on for two days. Denies tinnitus, CP, SOB, N/V, or abdominal pain. Review of Systems Review of Systems: All systems reviewed & are unremarkable except as noted in HPI & below Physical Exam Constitutional: well developed, + ill appearing and + well hydrated Eyes: PERRL, conjunctivae normal, anicteric sclerae ENMT: external ear and nose normal, oropharynx normal Ears: + mastoid abnormality (tenderness on deep palpations ); no hearing impairment and no external ear abnormality Respiratory: normal respiratory effort, lungs clear to auscultation normal respiratory effort and + cough Cardiovascular: RRR, no murmur, no edema Gastrointestinal (Abdomen): normal bowel sounds, soft, nontender, no hepatosplenomegaly Inspection/Auscultation: normal bowel sounds Percussion/Palpation: + abdomen tender (URQ deep palpation tenderness ) and abdo men soft Musculoskeletal: no cyanosis or clubbing, extremities motor strength 5/5 Skin: no rashes, warm and dry Results & Data Results & Data ([facility]) Vital Signs (Past 12 Hours) Vital Signs Temp Pulse Pulse Resp BP BP Pulse Ox 11/27/21 06:45 36.9 C 84 20 163/81 H 93 11/26/21 22:19 86 11/27/21 02:50 37.3 C 85 20 165/78 H 93 11/27/21 01:50 11/26/21 23:11 37.2 C 86 20 147/72 H 93 O2 Del Method 11/27/21 06:45 Room Air 11/26/21 22:19 11/27/21 02:50 Room Air 11/27/21 01:50 Room Air 11/26/21 23:11 Room Air Resident Activity Tracking Resident Involvement: Resident Care Provided Care Provided: Adult Hospital Medicine
--- NOTE | 2021-11-27 07:27 | Magnetic Resonance Report ---
MRCP CLINICAL HISTORY: Pancreatic stone. TECHNIQUE: Utilizing a 1.5 Ruma magnet and dedicated coil, multiplanar, multiecho imaging of the [facility] abdomen was performed utilizing heavily T2 weighted pulsing sequences without IV contrast. COMPARISON STUDY: Right upper quadrant ultrasound November 14, 2021. CT of the abdomen and pelvis November 26, 2021. FINDINGS: Trace bilateral pleural effusions are noted within the visualized chest. Body wall edema is most pronounced within the left flank. Note is made of a 2.6 cm T2 hyperintense focus within segment 8 of the liver. This appears to be related to a portal to hepatic venous shunt, suboptimally assesse d on this unenhanced exam. No intra or extra hepatic biliary ductal dilatation is present. Common angella e duct measures 5 mm in caliber. There are multiple gallstones within the gallbladder. There is no ga llbladder wall thickening. No pericholecystic fluid. A 9 mm T2 hypointense filling defect within the pancreatic duct at the level of the pancreatic head corresponds to the calculus shown on CT of November 26, 2021. There is mild pancreatic ductal dilatation, measuring 5 mm in caliber. Probable pancreas di visum. Innumerable cystic lesions within the pancreas are noted. These measure up to 1.7 cm. Sensitiv ity for detection of pancreatic masses is diminished on this unenhanced exam. There is no peripancrea tic infiltration or fluid. Pancreatic glandular atrophy is noted. Parenchymal calcification within th e pancreas are better depicted on CT. Unenhanced images of the spleen, adrenal glands and right kidne y are unremarkable. There is mild stranding adjacent to the left kidney. There is no hydronephrosis. There are prominent para-aortic lymph nodes, as shown on CT. Caliber of visualized small and large kristofer wel are normal. IMPRESSION: 1. No biliary ductal dilatation. No common bile duct calculi identified. 2. Cholelithiasis. 3. 9 mm calculus within the main pancreatic duct, as shown on CT. Mild pancreatic ductal dilatation, measuring 5 mm. No MRI evidence for acute pancreatitis. 4. Innumerable cystic lesions within the pancreas, suboptimally assessed on this unenhanced exam. The se could reflect dilated side branches in the setting of chronic pancreatitis given pancreatic glandu lar atrophy. Alternatively, numerous side branch IPMNs could appear similar. Follow-up MRI of the gamino creas in 6 months to ensure stability is recommended. Probable pancreas divisum. 5. Left perinephric stranding, as shown on prior CT. This may reflect an infectious process. 6. Suspected portal venous to hepatic venous shunt within the liver, as described above. 7. Body wall edema, most pronounced within the left flank. ACT 112: Negative or not required by law. Electronically signed by: Jai Kaplan M.D. 11/27/2021 7:26 AM
[2021-11-27 07:48] LABS: Hemoglobin 10.9 g/dl (12.0-16.0); Mean Corpuscular Hemoglobin 31.3 pg (25.0-34.0); Mean Corpuscular Hgb Conc 34.1 g/dL (32.0-36.0); Mean Platelet Volume 9.2 fL (9.4-12.3); Platelet Count 245 K/uL (130-400); RDW Coefficient of Variation 14.1 % (11.5-14.5); RDW Standard Deviation 47.7 fL (36.4-46.3); Red Blood Count 3.48 M/uL (3.93-5.22)
[2021-11-27 08:18] LABS: Est GFR (African American) 30.7 ml/min; Potassium 4.9 mmol/L (3.5-5.1)
[2021-11-27 08:19] LABS: BUN Creatinine Ratio 13.8 (10-20); Calcium 8.4 mg/dl (8.5-10.1); Creatinine Clr Calc Pharmacy 31.9 ml/min; Est GFR (Non-African American) 26.5 ml/min
--- NOTE | 2021-11-27 08:34 | Nephrology Progress Note ---
Date of Service November 27, 2021 Assessment & Plan (1) Acute kidney injury: Plan: * Recovery phase. Nonoliguric. Cr improved from 5.1 to 1.8 (baseline 1.2 - 1.5) * Encourage oral hydration * BP remains acceptable. Continue to hold Losartan and HCTZ * Monitor PRP (2) Stage III chronic kidney disease: Plan: * CKD stage G3/A2. Baseline creatinine 1.2-1.5 mg/dL. CKD attributed to DKD * Will need Nephrology follow up w/ Dr. Mcdonald 1 - 2 weeks following hospital discharge ( ) (3) Hypertension: Plan: * BP remains acceptable. Continue to hold Losartan and HCTZ (4) Gram-negative bacteremia: Plan: * 11/22/21 blood and urine cultures were positive for E. Coli * PCR was + for enterococcus * Continued low grade fever, mild leukocytosis * Cefipime changed to IV Zosyn * 11/23/21 blood cultures are negative * 11/26/[address] revealed a 9 mm stone within the pancreatic duct. Patient is awaiting transfer to [facility] for ERCP Admission and Anticipated Discharge Date Admission Date: November 22, 2021 Subjective Mrs. Deshpande was evaluated in her hospital room this morning. She reports that she still has intermittent diarrhea. Abdominal CT revealed a 9 mm pancreatic duct stone. She is awaiting transfer to [facility] for ERCP. Review of Systems Constitutional: no fever Eyes: no problem reported Ear, Nose, Mouth, Throat: no problem reported Respiratory: no cough and no dyspnea Cardiovascular: no chest pain Gastrointestinal: no abdominal pain and no diarrhea/loose stools Genitourinary: no dysuria Physical Exam Constitutional: not in distress Eyes: PERRL, conjunctivae normal, anicteric sclerae ENMT: external ear and nose normal, oropharynx normal Neck: trachea midline, no thyromegaly Respiratory: normal respiratory effort, lungs clear to auscultation Cardiovascular: RRR, no murmur, no edema Gastrointestinal (Abdomen): normal bowel sounds, soft, nontender, no hepatosplenomegaly Skin: no rashes, warm and dry Neurologic: awake; not confused Results & Data ([facility]) Vital Signs (Past 12 Hours) Vital Signs Temp Pulse Pulse Resp BP BP Pulse Ox 11/27/21 08:01 79 11/27/21 06:45 36.9 C 84 20 163/81 H 93 11/26/21 22:19 86 11/27/21 02:50 37.3 C 85 20 165/78 H 93 11/27/21 01:50 11/26/21 23:11 37.2 C 86 20 147/72 H 93 O2 Del Method 11/27/21 08:01 11/27/21 06:45 Room Air 11/26/21 22:19 11/27/21 02:50 Room Air 11/27/21 01:50 Room Air 11/26/21 23:11 Room Air Laboratory Results Laboratory Tests 11/27/21 11/27/21 06:44 06:44 WBC 13.90 H Hgb 10.9 L Hct 32.0 L Plt Count 245 Sodium 133 L Potassium 4.9 Chloride 104 Carbon Dioxide 21 BUN 25 H Creatinine 1.81 H Glucose 133 H Calcium 8.4 L PG Care Time/CCT Total # of Minutes Spent Total Time Spent with Patient: Total time spent is greater than 50% in coordination of care (as documented) at patient's floor/unit and/or counseling patient: Coding Level of Care Code 14865 Subseq Hosp Care Lvl 3 Diagnoses Acute kidney injury N17.9 Stage III chronic kidney disease N18.3 Hypertension I10 Gram-negative bacteremia R78.81
[2021-11-27] MEDS: INSULIN ASPART PER UNIT SC SCH ×3 (08:51→17:34)
[2021-11-27] MEDS: CHOLECALCIFEROL 1,000 UNITS 25 MCG TAB PO SCH (08:58)
[2021-11-27] MEDS: LIDOCAINE 5% 1 PATCH TD SCH (08:58)
[2021-11-27] MEDS: PANTOprazole 40 MG TAB PO SCH (08:58)
[2021-11-27] MEDS: HEPARIN SOD 5,000 UNIT/0.5 ML VIAL SQ SCH (08:59)
[2021-11-27] MEDS: SACCHAROMYCES BOULARDII 250 MG CAP PO SCH (08:59)
[2021-11-27] MEDS ORDERED: LANTUS PER UNIT CHARGE SQ SCH (09:00)
[2021-11-27] MEDS: POTASSIUM CHLORIDE CRTAB 20 MEQ TABCR PO SCH (09:01)
--- NOTE | 2021-11-27 09:34 | Gastroenterology Progress Note ---
Date of Service November 27, 2021 Assessment & Plan (1) Pancreatic duct calculus: Plan: Currently awaiting transfer to [facility] for ERCP. Continue to monitor LFTs daily while admitted at [facility] and continue IV Zosyn. Admission and Anticipated Discharge Date Admission Date: November 22, 2021 Supervising Physician Co-Signing Physician Notes Agree with APRIL Mccabe as above Abd: Soft, NT, ND, +BS Continue current therapy and supportive care Patient awaiting transfer to [facility] for ERCP Subjective Patient is a 76 yo female with a large pancreatic ductal calculi measuring 9 mm. MRCP performed yesterday confirmed this finding/size. She is currently awaiting transfer to [facility] in [place] for ERCP intervention due to the increased stone size since her EUS last month. Patient's T bili is 2.4, D bili 1.2, AST 50, ALT 30, AP 354. WBC count is 13,900. She denies further changes at the present time. Review of Systems Gastrointestinal: + abdominal pain and + diarrhea/loose stools Physical Exam Constitutional: well developed Respiratory: normal respiratory effort Cardiovascular: Rate/Rhythm: regular rate and regular rhythm Gastrointestinal (Abdomen): Inspection/Auscultation: abdomen normal to inspection; abdomen not distended Percussion/Palpation: + abdomen tender and abdomen soft Musculoskeletal: Head/Neck/Chest: normocephalic Psychiatric: Orientation: alert and oriented x 3 Results & Data Results & Data ([facility]) Vital Signs (Past 12 Hours) Vital Signs Temp Pulse Pulse Resp BP BP Pulse Ox 11/27/21 08:01 79 11/27/21 06:45 36.9 C 84 20 163/81 H 93 11/26/21 22:19 86 11/27/21 02:50 37.3 C 85 20 165/78 H 93 11/27/21 01:50 11/26/21 23:11 37.2 C 86 20 147/72 H 93 O2 Del Method 11/27/21 08:01 11/27/21 06:45 Room Air 11/26/21 22:19 11/27/21 02:50 Room Air 11/27/21 01:50 Room Air 11/26/21 23:11 Room Air PG Care Time/CCT Total # of Minutes Spent Total Time Spent with Patient: Total time spent is greater than 50% in coordination of care (as documented) at patient's floor/unit and/or counseling patient: Coding Level of Care Code 65788 Subseq Hosp Care Lvl 3 Diagnoses Pancreatic duct calculus K86.89
--- NOTE | 2021-11-27 12:42 | Pharmacy Report ---
Pharmacy Glycemic Short Note 2 - Date of Service November 27, 2021 - Glycemic Short BSG Results (Last 24 hours): 11/26/21 11/26/21 11/26/21 12:19 13:12 16:33 Glucose Cancelled 157 H POC Glucose 143 H 11/26/21 11/26/21 11/27/21 17:45 21:23 06:44 Glucose 133 H POC Glucose 148 H 144 H 11/27/21 11/27/21 07:23 11:54 Glucose POC Glucose 139 H 179 H OUTPATIENT ANTIDIABETIC REGIMEN: * Toujeo 50-53 units Q HS * Humalog 1 unit per 4 gm CHO consumed with breakfast and 1 unit per 2gm CHO consumed with lunch and dinner; in addition to sliding scale * A1c = 6.9% 07/19/21 ASSESSMENT: 11/27/21 * Patient's BSGs yesterday were [phone] mg/dL. Fasting today is 139 mg/dL * Patient received 34 units of insulin (20 units of basal and 14 units of bolus). * Increase basal to 22 units daily or 11 units BID. * Continue Novolog 11/24/21 * BSGs improved overnight with fasting BSG of 103 mg/dL this morning * Received 40 units of insulin yesterday (24 units of Lantus and 16 unit of N ovolog) * No changes anticipated to current regimen today PLAN FOR INPATIENT GLYCEMIC CONTROL: * Hold outpatient oral diabetes medications * Basal insulin * Lantus 11 units SQ BID * Bolus insulin * NovoLog per scale ACHS and at 0200 tonight * Goal Range: Low 110 mg/dL - High 160 mg/dL * Correction Factor: 15 mg/dL/unit * Nutritional / Prandial insulin per carb ratio of 1 unit per 4 grams CHO consumed
--- NOTE | 2021-11-27 17:51 | Billing Data ---
Date of Service November 27, 2021 Coding Level of Care Code 19880 Subseq Hosp Care Lvl 2
--- NOTE | 2021-11-29 17:06 | Discharge Summary ---
Date of Service November 27, 2021 Admission HPI Per Admitting Provider 75 YOF with medical history of: Thyroid nodule, DM I (on Trujeo and sliding scale), Gall stone, pancreatic stone/cyst, CKD III, HTN, HLD, obesity (follows with bariatric medicine), hematuria, superficial DVT (2019), diverticulosis, chronic cough, GERD. Patient comes to the [facility] today for complaints of diarrhea, myalgias, fevers decrease PO intake and fatigue. Patient states that this occurred Friday into Friday morning approx at around 0300 in the morning. She was awoken with acute onset of chills and diarhea. Her stool was normally brown with liquid and soft formed. This was not associated with any nausea/vomiting or with any abdominal pain or cramping. Patient reports that she has had 4-6 episodes of diarrhea every day since then. She denies any blood or mucous with these events. She tried to eat and drink but as soon as she would, she would have diarrhea so she stopped. She reports checking her temperature throughout the time and T-max was 102 on Friday. Associated other symptoms are right sided flank pain. She states that her stools are now liquid and green yellow. Patient endorses that she ate Friday evening a chicken salad that was prepared at home. She also endorses that she has continued to take her ARB and diuretic through this as well. She is accompanied by her and daughter. Her ate with her on Friday and he has no symptoms. In the [facility] the patient presented hypotensive in the 70s at triage, but as soon as she was brought back to [facility] she was 108/60. She had routine labs performed to include blood cultures, lactate. She had stool sample and urine sample that are pending. CT of the abdomen performed without contrast. Labs revealed [employer] of 5 with baseline 1.3. Potassium is normal and she is making urine, magnesium low at 1.2. She was given 2.5 liters of 0.9% saline in the EMD. Lacate was 4.0. Patient was started on Rocephin 2 GM IV. Patient will be admitted to PCU for monitoring. Will follow BMP in the evening. Obtain RUQUS as she remains tender in that area. Follow cultures. COVID test on admission is: NEGATIVE Admission Exam Per Admitting Provider General: awake, alert, no apparent distress Head: Normocephalic, atraumatic ENT: PERRLA, EOMI, no pharyngeal exudate, mucous membranes dry Neuro: AAO x 3, speech clear and appropriate, strength intact bilaterally 5/5, sensation intact and equal all extremities and dermatomes, no pronator drift Chest: equal rise and fall of the chest, no accessory muscle use, no heaves or thrills, Clear to auscultation, on room air, Cardiac: Regular rate and rhythm, telemetry reviewed-NSR, skin warm dry, cap refill <3 seconds, peripheral pulses, +2 no JVD, no murmur, no edema GI: NABS x 4 quadrants, soft, tender to RUQ and liver with palpation, no rebound, guarding or tenderness : Spontaneously voiding, no pain, right sided CVA tenderness, Extremities: Normal inspection, no peripheral edema or erythema, calfs nontender to palpation Psych: Normal mood and affect Skin: no rash or erythema Principal Diagnosis sepsis 2/2 E. Coli bacteremia Discharge Exam Constitutional well developed, + ill appearing and + well hydrated Eyes PERRL, conjunctivae normal, anicteric sclerae ENMT external ear and nose normal, oropharynx normal Ears: + mastoid abnormality (tenderness on deep palpations ); no hearing impairment and no external ear abnormality Respiratory normal respiratory effort, lungs clear to auscultation normal respiratory effort and + cough Auscultation: + rhonchi (BL) Cardiovascular RRR, no murmur, no edema Gastrointestinal (Abdomen) normal bowel sounds, soft, nontender, no hepatosplenomegaly Inspection/Auscultation: normal bowel sounds Percussion/Palpation: + abdomen tender (URQ deep palpation tenderness ) and abdomen soft Musculoskeletal no cyanosis or clubbing, extremities motor strength 5/5 Skin no rashes, warm and dry Discharge Data Allergies Allergy/AdvReac Type Severity Reaction Status Date / Time Iodinated Contrast Media Allergy Mild Unknown Verified 11/22/21 12:12 iodine Allergy Mild Unknown Verified 11/22/21 12:12 apixaban [From Eliquis] AdvReac Mild Hives Verified 11/22/21 12:12 atorvastatin AdvReac Mild leg cramps Verified 11/22/21 12:12 rosuvastatin AdvReac Mild leg cramps Verified 11/22/21 12:12 simvastatin AdvReac Mild leg cramps Verified 11/22/21 12:12 Consultations 11/22/21 15:18 Consult Nephrology Routine 11/26/21 10:57 Consult Physician Routine 11/26/21 14:29 Burn CD for patient Routine Ordered Studies 11/22/21 10:09 CT head/brain wo con Stat 11/22/21 10:10 CT abd pelvis wo con Stat 11/22/21 12:51 US gallbladder Routine 11/23/21 15:41 US venous doppler LE RT Routine 11/26/21 08:19 CT abd pelvis wo con Urgent 11/26/21 11:31 MR MRCP Routine Hospital Course (1) Sepsis: (2) Acute kidney injury: (3) UTI (urinary tract infection): (4) Type 1 diabetes mellitus with diabetic retinopathy: (5) Hypertension: (6) Acid reflux: (7) Dyslipidemia: (8) Back pain: (9) Stage III chronic kidney disease: (10) Chronic cough: (11) Pulmonary vascular congestion: Plan Update: Currently awaiting transfer to [facility] for ERCP. Continue to monitor LFTs daily while admitted at [facility] and continue IV Zosyn. No changes in management. Labs are looking better. Patient had sepsis 2/2 E. Coli bacteremia and RODNEY stemming from a UTI or GI source. Patient has been clinically improving though today, patient's WBC, creatine, bilirubin, AST, and Alk stephanie increased. CT w/o was ordered today due to patient's contrast allergy and RODNEY. MRCP will be preformed today. Results pending. Patient will need an ERCP but can not get one here at this time. Will transfer to [facility] in [place] to have ERCP performed by Dr. Wang due to the patient not being clinically stable to do the procedure outpatient. #Pancreatic duct calculus: -CT of the abdomen/pelvis that indicated a large, 9 mm stone in the pancreatic duct. -EUS performed last month by Dr. Wang showed a pancreatic duct measured up to 6 mm in diameter. -MRCP will be preformed today. Pending results. -GI recommends ERCP #sepsis - Secondary to E. Coli bacteremia and E. Coli urinary tract infection -Resolving, patient though has fevers from time to time. Temperature has been n ormal for the past 2 days. #E. Coli Bacteremia - Blood cultures 2/2 with gamino-sensitive E. Coli - Repeat blood cultures on 11/23 are NTD - Started on Cefepime, switched to Zosyn on 11/25. # E. Coli Urinary Tract infection - culture growing gamino-sensitive E. Coli - Switched to Zosyn (above) - Patient continues to have mild L sided CVA tenderness and LUQ pain - Patient has increase Will obtain CT #Recurrent Fevers with new leukocytosis -Despite adequate antibiotic coverage based on cultures - Could consider CT Abd/Pelvis if continues to have fevers and left flank pain to rule out renal or perinephritic abscess as this may require percutaneous drainage. Ordered which showed no abscess but study limited by no contrast. # RODNEY on CKD III - CKD stage G3/A2. Baseline creatinine 1.2-1.5 mg/dL. CKD attributed to DKD - Recovery phase. Nonoliguric. - Cr improved from 5.1 to 1.98 (baseline 1.2 - 1.5) - Encourage oral hydration - BP remains acceptable. Continue to hold Losartan and HCTZ # Diarrhea: - less frequent but still having watery stool, suspect there is some element of post-infectious diarrhea now - Stool BioFire was negative. - PRN Imodium, Florastor - advance diet as tolerated # cough, acute on chronic - CXR today showed improvement in pulmonary edema. Pulmonary edema most likely secondary to aggressive IVF administration for sepsis. IVFs have been stopped. - Gave one time lasix 10mg push. Patient's symptoms improved slightly. - Can consider gentle diuresis if no improvement with decreased IVF rate overnight or if she worsens overnight (ie increased O2 requirement) - unknown etiology of chronic cough--has seen pulm (Dr. Whelan) and ENT in the past # decreased appetite - likely secondary to acute illness - added glucose control Boost to meals (chocolate) # elevated liver tests (resolved) - normal on 11/24. No need to continue to monitor. - T. Bili still slightly elevated at 1.5, AST and ALT have normalized, Alk P is close to normal # DM1 - basal bolus insulin - glycemic consult, appreciate recommendations as she starts to increase her oral intake # HTN - holding home ARB and HCTZ due to RODNEY - blood pressures have been in an acceptable range without anti-hypertensive - PRN labetalol ordered for SBP > 180 - if BPs are consistently elevated in the setting of RODNEY, can consider oral CCB for BP control #back pain - likely muscular etiology - continue topical lidocaine patch # GERD with Benavides's esophagitis - Protonix 40mg daily # Dyslipidemia - continue home pravastatin 10mg FEN: carb consistent DVT prophylaxis: subQ heparin Code Status: FULL Dispo: transfer to [facility] Total Time Total Time Spent Total Time Spent (In Minutes): 60 Total Time Includes: Examination of the Patient, Discharge Planning, Medication Reconciliation, Communication With Other Providers and Other Discharge Plan Discharge Items Patient Disposition: Transfer Acute Care Hospital Reason For Visit: SEPSIS, ARF Discharge Diagnosis: Sepsis, RODNEY, pancreatic cysts, needing ERCP Activity: Per Instructions section Non-emergency contact: Primary Care Provider Call non-emergency contact if: your symptoms worsen, your pain is concerning for you and you have a fever Follow-up/Referrals: Pro,Td Parada MD [Primary Care Provider] - Diet: Carb Count or DM1 Addtl Attending Provider Instructions: Patient had sepsis 2/2 E. Coli bacteremia and RODNEY stemming from a UTI or GI source. Patient has been clinically improving though today, patient's WBC, creatine, bilirubin, AST, and Alk stephanie increased. CT w/o was ordered today due to patient's contrast allergy and RODNEY. MRCP performed and results are below. Patient will need an ERCP but can not get one here at this time. Will transfer to [facility] in [place] to have ERCP performed by Dr. Wang due to the patient not being clinically stable to do the procedure outpatient. HPI on 11/20: 75 y/o female with medical history of: Thyroid nodule, DM I (on Trujeo and sliding scale), Gall stone, pancreatic stone/cyst, CKD III, HTN, HLD, obesity (follows with bariatric medicine), hematuria, superficial DVT (2019), diverticulosis, chronic cough, GERD. Patient comes to the [facility]MD today for complaints of diarrhea, myalgias, fevers decrease PO intake and fatigue on 11/22. She was awoken with acute onset of chills and diarhea. Her stool was normally brown with liquid and soft formed. This was not associated with any nausea/vomiting or with any abdominal pain or cramping. Patient reports that she has had 4-6 episodes of diarrhea every day since then. She denies any blood or mucous with these events. She tried to eat and drink but as soon as she would, she would have diarrhea so she stopped. She reports checking her temperature throughout the time and T-max was 102 on Friday. Associated other symptoms are right sided flank pain. She states that her stools are now liquid and green yellow. Patient endorses that she ate Friday evening a chicken salad that was prepared at home. She also endorses that she has continued to take her ARB and diuretic through this as well. She is accompanied by her and daughter. Her ate with her on Friday and he has no symptoms. MRCP results from 11/26/2021:MRCP CLINICAL HISTORY: Pancreatic stone. TECHNIQUE: Utilizing a 1.5 Ruma magnet and dedicated coil, multiplanar, multiecho imaging of the upper abdomen was performed utilizing heavily T2 weighted pulsing sequences without IV contrast. COMPARISON STUDY: Right upper quadrant ultrasound November 14, 2021. CT of the abdomen and pelvis November 26, 2021. FINDINGS: Trace bilateral pleural effusions are noted within the visualized chest. Body wall edema is most pronounced within the left flank. Note is made of a 2.6 cm T2 hyperintense focus within segment 8 of the liver. This appears to be related to a portal to hepatic venous shunt, suboptimally assessed on this unenhanced exam. No intra or extra hepatic biliary ductal dilatation is present. Common bile duct measures 5 mm in caliber. There are multiple gallstones within the gallbladder. There is no gallbladder wall thickening. No pericholecystic fluid. A 9 mm T2 hypointense filling defect within the pancreatic duct at the level of the pancreatic head corresponds to the calculus shown on CT of November 26, 2021. There is mild pancreatic ductal dilatation, measuring 5 mm in caliber. Probable pancreas divisum. Innumerable cystic lesions within the pancreas are noted. These measure up to 1.7 cm. Sensitivity for detection of pancreatic masses is diminished on this unenhanced exam. There is no peripancreatic infiltration or fluid. Pancreatic glandular atrophy is noted. Parenchymal calcification within the pancreas are better depicted on CT. Unenhanced images of the spleen, adrenal glands and right kidney are unremarkable. There is mild stranding adjacent to the left kidney. There is no hydronephrosis. There are prominent para-aortic lymph nodes, as shown on CT. Caliber of visualized small and large bowel are normal. IMPRESSION: 1. No biliary ductal dilatation. No common bile duct calculi identified. 2. Cholelithiasis. 3. 9 mm calculus within the main pancreatic duct, as shown on CT. Mild pancreatic ductal dilatation, measuring 5 mm. No MRI evidence for acute pancreatitis. 4. Innumerable cystic lesions within the pancreas, suboptimally assessed on this unenhanced exam. These could reflect dilated side branches in the setting of chronic pancreatitis given pancreatic glandular atrophy. Alternatively, numerous side branch IPMNs could appear similar. Follow-up MRI of the pancreas in 6 months to ensure stability is recommended. Probable pancreas divisum. 5. Left perinephric stranding, as shown on prior CT. This may reflect an infectious process. 6. Suspected portal venous to hepatic venous shunt within the liver, as desc ribed above. 7. Body wall edema, most pronounced within the left flank. Note as of 11/26/2021: #Pancreatic duct calculus: -CT of the abdomen/pelvis that indicated a large, 9 mm stone in the pancreatic duct. -EUS performed last month by Dr. Wang showed a pancreatic duct measured up to 6 mm in diameter. -MRCP will be preformed today. Pending results. -GI recommends ERCP #sepsis - Secondary to E. Coli bacteremia and E. Coli urinary tract infection -Resolving, patient though has fevers from time to time. Temperature has been normal for the past 2 days. #E. Coli Bacteremia - Blood cultures 2/2 with gamino-sensitive E. Coli - Repeat blood cultures on 11/23 are NTD - Started on Cefepime, switched to Zosyn on 11/25. # E. Coli Urinary Tract infection - culture growing gamino-sensitive E. Coli - Switched to Zosyn (above) - Patient continues to have mild L sided CVA tenderness and LUQ pain - Patient has increase Will obtain CT #Recurrent Fevers with new leukocytosis -Despite adequate antibiotic coverage based on cultures - Could consider CT Abd/Pelvis if continues to have fevers and left flank pain to rule out renal or perinephritic abscess as this may require percutaneous drainage. Ordered which showed no abscess but study limited by no contrast. # RODNEY on CKD III - CKD stage G3/A2. Baseline creatinine 1.2-1.5 mg/dL. CKD attributed to DKD - Recovery phase. Nonoliguric. - Cr improved from 5.1 to 1.98 (baseline 1.2 - 1.5) - Encourage oral hydration - BP remains acceptable. Continue to hold Losartan and HCTZ # Diarrhea: - less frequent but still having watery stool, suspect there is some element of post-infectious diarrhea now - Stool BioFire was negative. - PRN Imodium, Florastor - advance diet as tolerated # cough, acute on chronic - CXR today showed improvement in pulmonary edema. Pulmonary edema most likely secondary to aggressive IVF administration for sepsis. IVFs have been stopped. - Gave one time lasix 10mg push. Patient's symptoms improved slightly. - Can consider gentle diuresis if no improvement with decreased IVF rate overnight or if she worsens overnight (ie increased O2 requirement) - unknown etiology of chronic cough--has seen pulm (Dr. Whelan) and ENT in the past # decreased appetite - likely secondary to acute illness - added glucose control Boost to meals (chocolate) # elevated liver tests (resolved) - normal on 11/24. No need to continue to monitor. - T. Bili still slightly elevated at 1.5, AST and ALT have normalized, Alk P is close to normal # DM1 - basal bolus insulin - glycemic consult, appreciate recommendations as she starts to increase her oral intake # HTN - holding home ARB and HCTZ due to RODNEY - blood pressures have been in an acceptable range without anti-hypertensive - PRN labetalol ordered for SBP > 180 - if BPs are consistently elevated in the setting of RODNEY, can consider oral CCB for BP control #back pain - likely muscular etiology - continue topical lidocaine patch # GERD with Benavides's esophagitis - Protonix 40mg daily # Dyslipidemia - continue home pravastatin 10mg Pending Studies at Discharge: No Stand-Alone Forms: My [facility] Skilled Items Patient informed of condition?: Yes DNR: No Discharge Level of Care: Other Communicable Disease: No Discharge Prognosis: Deteriorating Lines: Peripheral IV Urinary Catheter: No Medications and DC Order Prescriptions: Continued (DME) pen needle, diabetic [BD Ultra-Fine Fela Pen Needle] 32 gauge x 5/32" needle See Rx Instructions .ROUTE .MEDSUPPLY Qty: 500 3RF Rx Instructions: use 5 x daily omeprazole 40 mg capsule,delayed release(DR/EC) 40 mg PO DAILY Qty: 90 3RF hydrochlorothiazide 25 mg tablet 25 mg PO DAILY Qty: 90 3RF insulin lispro [Humalog KwikPen Insulin] 100 unit/mL insulin pen 150 unit SQ .COMPLEX Qty: 135 3RF Rx Instructions: 150 units subcut inject per sliding scale with meals up to 150 units daily; losartan 100 mg tablet 100 mg PO DAILY Qty: 90 3RF Toujeo SoloStar U-300 Insulin 300 unit/mL (1.5 mL) insulin pen 53 unit SQ HS Qty: 18 3RF pravastatin 10 mg tablet 10 mg PO .COMPLEX Qty: 30 2RF Rx Instructions: 10 mg PO 2x a week ..; cholecalciferol (vitamin D3) 25 mcg (1,000 unit) capsule 25 mcg PO DAILY (DME) Dexcom G6 Sensor Device See Rx Instructions .ROUTE .MEDSUPPLY Qty: 3 Rx Instructions: As directed (DME) Dexcom G6 Paraprofessional Aide Misc See Rx Instructions .ROUTE .MEDSUPPLY Qty: 1 Rx Instructions: As directed (DME) Dexcom G6 Transmitter Device See Rx Instructions .ROUTE .MEDSUPPLY Qty: 1 Rx Instructions: As directed Discharge Orders: Discharge Order (Routine); Ordered 11/27/21 Ordered By: Sanya Camarillo Admission Data Admit Date/Time: 11/22/21 13:07 Attending Provider: Jarrod Izaguirre Admit Provider: Jovany Calderon Primary Care Provider: Td Foster Other Providers: Jefry Mcdonald ; Ligia Donaldson ; Nadiya Wilburn ; Gatito Munoz ; Pepper Casas ; Juancarlos Healy ; More Morris ; Radha Moses ; Christian Cavazos ; Casie Cavanaugh ; Lindsay Rosas ; Renetta Velez ; Alma Verde ; Brittani Mensah Supervising Physician Co-Signing Physician Notes I personally examined the patient and verified all littlejohn points of history and exam, discussed case, and agree with decision making with Dr Camarillo Feeling okay. No new complaints. Still awaiting transfer to [facility] when i saw her, later transfer completed. Answered all questions to the best my ability. Vitals noted, in general she is awake and alert pleasant no distress. HEENT normocephalic atraumatic mucous membranes moist. Breathing unlabored no accessory muscle use good effort. Skin shows no rashes no pallor or icterus. Neuro without focal deficits. Sepsis/gram-negative bacteremiaappears stable. Have to be concerned about biliary source given her bilirubin and stone in common bile duct. Urine culture does raise the question of UTI with sepsis/bacteremiabut with stone bilirubin etc.cholangitis/biliary infection absolutely must be diagnosis of exclusionhence transfer for ERCP as soon as it can be facilitated. UTI likely cystis. Mild Acute pulmonary edema treated and resolvednow stable
== END 2021-11-27 20:56 | disposition short-term general hospital (02) | DRG 871 ==
LOC: ED 09:44 → SUATTDRO 13:07 → EDINP 13:07 → 1E 15:18 → 2N 11-24 18:50

== ENCOUNTER 2023-08-11 09:09 | Inpatient (IN) ==
--- NOTE | 2023-08-11 09:30 | Emergency Department Note ---
Impression & Plan Chest pain, Elevated troponin I level ED Provider Note NAME: DL VARGAS AGE: 77 SEX: F : 1945 ARRIVES VIA: Walk-In INFORMANT: Patient, ED PROVIDER(S): Td Johnson DO CHIEF COMPLAINT: Chest pain HPI: The patient is a 77-year-old female who presented to the emergency department for an evaluation of chest pain. The patient describes chest pain that began this morning. She states she also notices weakness. The pain is reproducible with palpation over the left chest wall. She denies having any fever. She does have a cough which is chronic. She denies having any hemoptysis. She denies having any leg pain billiard ROS: See above HPI for pertinent positives & negatives. A total of 10 systems reviewed and were otherwise negative. PAST MEDICAL HISTORY: See Below PAST SURGICAL HISTORY: See Below FAMILY HISTORY: See Below SOCIAL HISTORY: See Below HOME MEDICATIONS: See Below ALLERGIES: See Below VITALS: See Below PHYSICAL EXAMINATION: GENERAL: Patient is awake alert in no acute distress patient is resting comfortably and showing no signs of anxiety EYES: The conjunctivae are clear. The pupils are round and reactive. EARS, NOSE, MOUTH AND THROAT: The nose is without any evidence of any deformity. NECK: The neck is nontender and supple. RESPIRATORY: Normal respiratory effort is noted there is no evidence of wheezing rhonchi or rales CARDIOVASCULAR: Regular rate and rhythm noted there no murmurs rubs or gallops normal S1 normal S2. GASTROINTESTINAL: The abdomen is soft. Abdomen is nontender. MUSCULOSKELETAL/EXTREMITIES: There is no evidence of gross deformity full range of motion is noted in the hips and shoulders. There is tenderness to palpation over the left lateral chest wall. There is no crepitus. SKIN: There is no obvious evidence of any rash. There are no petechiae, pallor or cyanosis noted. NEUROLOGIC: Patient is awake alert and oriented x3. MEDICAL DECISION MAKING: The patient is a 77-year-old female who presented to the emergency department for an evaluation of chest pain. The patient did have some pleuritic component to her chest pain and also reproducible. EKG showed no acute ischemic changes no change from previous. The patient was found have an elevated troponin. This was repeated and at this time does appear to be trending upward. I discussed the patient's laboratory and radiographic studies with her. I discussed the limitations of the emergency department recover chest pain. Her D-dimer was elevated which was worrisome for venous thromboembolic disease. Dopplers of the legs were negative but she was unable to have a CT of the chest. I did start the patient on heparin as her troponin is trending up if this is cardiac in nature she may require heparinization but also if it is from a pulmonary embolism heparin would be indicated as well. I will discuss this case with the [facility]. Triage Nursing notes reviewed. Prior medical records reviewed Vital Signs: reviewed and remarkable for no significant abnormalities Differential diagnosis: Cardiac ischemia, aortic dissection, pulmonary embolism, pneumothorax, pneumonia, pericarditis, myocarditis, esophageal rupture, GERD, cholecystitis, pancreatitis, musculoskeletal, as well as other pathologies. ER treatment provided: See below Diagnostics interpreted by me: ECG: EKG was obtained in the emergency department. My interpretation is normal sinus rhythm at 85 bpm. There is no ectopy. There is no acute ST segment abnormalities noted. This was compared to a tracing from November 24, 2021. No changes were noted. A second EKG was obtained in the emergency department for ongoing chest pain. My interpretation is normal sinus rhythm at 78 bpm. There is no ectopy. There is no acute ST segment abnormalities noted. This compares similar to the EKG obtained in the emergency department. Cardiac Monitoring: An order was placed for continuous cardiac monitoring. The monitor shows a rate of 79 bpm with sinus rhythm. Laboratory studies: As stated above and show below. Imaging studies: See below. Radiographic imaging was reviewed by myself Consultation(s): I discussed this case with Dr. Terry who is on-call for the [facility] group. ED COURSE: Procedures: none Critical Care: I have personally spent greater than 45 minutes of critical care time in the direct management of this patient. This includes bedside care, interpretation of diagnostic studies, and testing, discussion with consultants, patient, and family members, and other required patient management activities. This 45 minutes is in excess of all separately billable procedures. Past Med/Surg History Medical History Left shoulder pain Pulmonary vascular congestion Gram-negative bacteremia Diarrhea UTI (urinary tract infection) Sepsis Acute kidney injury Trigger thumb, left thumb Superficial thrombosis of leg Cough Chronic x one year- stable- secondary to allergies DVT (deep venous thrombosis) june 2019 > right leg > from low activity levels > xarelto Hypertension Allergic reaction caused by a drug Type 1 diabetes mellitus, uncontrolled Acid reflux Stable and controlled - does have increased secretions at times. Benavides esophagus Dyslipidemia Osteoporosis Solitary thyroid nodule just monitoring Stage III chronic kidney disease sees Dr. 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 Glucose stable Surgical History History of biopsy of bladder History of dilatation and curettage History of esophagogastroduodenoscopy (EGD) History of colonoscopy History of tooth extraction History of adenoidectomy Hx of oophorectomy left Hx of biopsy pancreas> cysts are benign History of resection of small bowel over 50 yrs ago History of ligation of vein bilat legs History of tonsillectomy History of bilateral oophorectomy H/O cataract extraction bilat Family History Father Cardiovascular disease COPD (chronic obstructive pulmonary disease) Family history of cerebrovascular accident Myocardial infarction Stroke Mother Cardiovascular disease Family history of diabetes mellitus Hypertension Family history of cerebrovascular accident Stroke Sister Family history of coronary artery disease Family/Other Ovarian cancer Denies family history of Prostate cancer Breast cancer Colorectal cancer Social History Smoking Status: Never smoker Second Hand Exposure: Yes (as kid); Do You Dip or Chew Tobacco: No; Hx Alcohol Use: No Hx Substance Use: No Preferred Language: R[place] Communication Ability: Effective Visual Impairment: No Limitations Hearing Ability: Normal Proof Plate Maker Required: No Beliefs That Will Affect Care: None marital status: Current Living Situation: Spouse current occupational status: retired How many Children do You have: 3 How many Children do You have Comment: 1 girl 2 boy Feels Safe at Home: Yes Childhood Exposure to Second-Hand Smoke: Yes Diet: regular during the past year weight has: remained stable Dental Care, Regularly: Yes Physical Activity Frequency: Daily Seatbelt Use: always Sunscreen Use: Yes Assistive Devices: None Allergies Allergies Allergy/AdvReac Type Severity Reaction Status Date / Time Iodinated Contrast Media Allergy Mild Unknown Verified 05/27/23 12:44 iodine Allergy Mild Unknown Verified 05/27/23 12:44 apixaban [From Eliquis] AdvReac Mild Hives Verified 05/27/23 12:44 atorvastatin AdvReac Mild leg cramps Verified 05/27/23 12:44 rosuvastatin AdvReac Mild leg cramps Verified 05/27/23 12:44 simvastatin AdvReac Mild leg cramps Verified 05/27/23 12:44 Home Meds Home Medications Medication Instructions Recorded Confirmed blood-glucose meter,continuous #1 ea 10/20/20 05/27/23 (Dexcom G6 Collections Assistant) blood-glucose sensor (Dexcom G6 #3 ea 10/20/20 05/27/23 Sensor device) blood-glucose transmitter (Dexcom #1 ea 10/20/20 05/27/23 G6 Transmitter device) cholecalciferol (vitamin D3) 25 25 mcg PO .COMPLEX 05/01/22 05/27/23 mcg (1,000 unit) capsule mecobalamin (vitamin B12) 1,000 1,000 mcg PO DAILY 01/23/23 05/27/23 mcg lozenges Previous Rx's Medication Instructions Recorded miconazole nitrate 2 % topical 1 applic topical DAILY PRN rash 12/20/21 powder #90 grams insulin glargine U-300 conc 300 54 unit (0.18 mL) subcut HS 90 09/13/22 unit/mL (1.5 mL) subcutaneous pen days #18 mL (Toujeo SoloStar U-300 Insulin) clobetasol 0.05 % topical ointment 1 applic topical DAILY #45 grams 02/13/23 pen needle, diabetic 32 gauge x #500 ea 05/14/23" (BD Ultra-Fine Fela Pen Needle) hydrochlorothiazide 25 mg tablet 25 mg PO DAILY #90 tabs 05/20/23 evolocumab 140 mg/mL subcutaneous 140 mg subcut .every 2 weeks #6 mL 06/03/23 pen injector (Repatha Kushalick) omeprazole 40 mg capsule,delayed 40 mg PO DAILY #90 caps 06/03/23 release insulin lispro 100 unit/mL 150 unit (1.5 mL) subcut .COMPLEX 06/10/23 subcutaneous pen (Humalog KwikPen #135 mL (U-100) Insulin) losartan 100 mg tablet 100 mg PO DAILY #90 tabs 07/18/23 Results & Data (ED) Vital Signs Vital Signs - 24 hr 08/11/23 09:15 08/11/23 09:23 08/11/23 09:33 Temperature 36.9 C Temperature Source Temporal Artery Scan Pulse Rate 76 80 Pulse Rate [Apical] Pulse Rate from SpO2 Sensor Respiratory Rate 14 13 Respiratory Effort / Characteristics Respiratory Depth Blood Pressure 177/90 H Blood Pressure [Right Arm] Blood Pressure Mean 119 Blood Pressure Mean [Right Arm] Pulse Oximetry 96 95 Oxygen Delivery Method Room Air Room Air Sepsis New/Unexplained Change in Mental Status No Sepsis Action Taken by Nursing No Action Required 08/11/23 09:40 08/11/23 09:50 08/11/23 09:50 Temperature Temperature Source Pulse Rate 82 87 Pulse Rate [Apical] Pulse Rate from SpO2 Sensor 86 Respiratory Rate 19 Respiratory Effort / Characteristics Respiratory Depth Blood Pressure 217/124 H Blood Pressure [Right Arm] Blood Pressure Mean 162 Blood Pressure Mean [Right Arm] Pulse Oximetry 96 Oxygen Delivery Method Sepsis New/Unexplained Change in Mental Status Sepsis Action Taken by Nursing 08/11/23 10:00 08/11/23 10:00 08/11/23 10:30 Temperature Temperature Source Pulse Rate 78 77 Pulse Rate [Apical] Pulse Rate from SpO2 Sensor 78 78 Respiratory Rate 14 12 Respiratory Effort / Characteristics Respiratory Depth Blood Pressure 188/112 H 197/115 H Blood Pressure [Right Arm] Blood Pressure Mean 138 142 Blood Pressure Mean [Right Arm] Pulse Oximetry 93 94 Oxygen Delivery Method Sepsis New/Unexplained Change in Mental Status Sepsis Action Taken by Nursing 08/11/23 11:10 Temperature Temperature Source Pulse Rate Pulse Rate [Apical] 79 Pulse Rate from SpO2 Sensor Respiratory Rate 16 Respiratory Effort / Characteristics Non-Labored Spontaneous Respiratory Depth Normal Blood Pressure Blood Pressure [Right Arm] 194/108 H Blood Pressure Mean Blood Pressure Mean [Right Arm] 136 Pulse Oximetry 94 Oxygen Delivery Method Room Air Sepsis New/Unexplained Change in Mental Status Sepsis Action Taken by [facility] Medications Current Medication List: was personally reviewed by me Laboratory Data Attestation: I reviewed the patient's lab results. 08/11/23 09:32 08/11/23 09:32 Lab Results 08/11/23 08/11/23 Range/Units 09:32 11:10 WBC 5.79 (4.8-10.8) K/ul RBC 4.38 (4.20-5.40) M/uL Hgb 13.7 (12.0-16.0) g/dl Hct 39.8 (37.0-47.0) % MCV 90.9 (80.0-100.0) fL MCH 31.3 (25.0-34.0) pg MCHC 34.4 (32.0-36.0) g/dL RDW Std Deviation 43.0 (36.4-46.3) fL RDW Coeff of Dior 13.0 (11.5-14.5) % Plt Count 213 (130-400) K/uL MPV 9.6 (9.4-12.4) fL Immature Gran % (Auto) 1.0 % Neut % (Auto) 44.1 % Lymph % (Auto) 39.0 % [place] % (Auto) 9.7 % Eos % (Auto) 5.2 % Baso % (Auto) 1.0 % Neut # (Auto) 2.55 (1.40-6.50) K/uL Lymph # (Auto) 2.26 (1.20-3.40) K/uL [place] # (Auto) 0.56 (0.11-0.59) K/uL Eos # (Auto) 0.30 (0.00-0.50) K/uL Baso # (Auto) 0.06 (0.00-0.20) K/uL Immature Gran # (Auto) 0.06 (0.01-0.20) K/uL PT 10.5 (9.0-12.0) Seconds INR 1.0 (0.9-1.1) APTT 25 (21-31) Seconds PTT Ratio 0.9 D-Dimer 1990 H* (0-500) ug/L FEU Sodium 139 (136-145) mmol/L Potassium 3.9 (3.5-5.1) mmol/L Chloride 106 (98-107) mmol/L Carbon Dioxide 22 (21-32) mmol/L Anion Gap 11 (3-11) BUN 32 H (6-23) mg/dl Creatinine 1.71 H (0.6-1.2) mg/dl Est Cr Clr Drug Dosing Not Reportable Est GFR ( Amer) 32.7 ml/min Est GFR (Non-Af Amer) 28.2 ml/min BUN/Creatinine Ratio 18.7 (10-20) Glucose 234 H (70-99(Fasting)) mg/dl Calcium 9.7 (8.6-10.3) mg/dl Total Bilirubin 0.7 (0.2-1.0) mg/dl AST 21 (13-39) U/L ALT 15 (7-52) U/L Alkaline Phosphatase 69 (34-104) U/L Troponin I High Sens 18.1 H 35.7 H D (0-14) pg/ml Total Protein 6.7 (6.0-8.3) gm/dl Albumin 3.8 (3.4-5.0) gm/dl Globulin 2.9 (2.5-4.0) gm/dl Albumin/Globulin Ratio 1.3 (0.9-2) Lipase 17 (11-82) U/L Administered Medications Discontinued Medications Aspirin (Aspirin Chew 324 Mg) 324 mg PO NOW STA Stop: 08/11/23 09:24 Last Admin: 08/11/23 09:47 Dose: 324 mg Documented By: HS Morphine Sulfate (Morphine Sulfate 4 Mg/Ml 1 Ml Carp\\Vial) 4 mg IV NOW STA Stop: 08/11/23 09:24 Last Admin: 08/11/23 09:47 Dose: 4 mg Documented By: HS Morphine Sulfate (Morphine Sulfate 4 Mg/Ml 1 Ml Carp\\Vial) 4 mg IV NOW STA Stop: 08/11/23 10:48 Last Admin: 08/11/23 12:27 Dose: Not Given Documented By: MES Ondansetron HCl (Ondansetron Inj 2 Mg/Ml 2 Ml Vial) 4 mg IV NOW STA Stop: 08/11/23 09:24 Last Admin: 08/11/23 09:47 Dose: 4 mg Documented By: HS Imaging Data Attestation: I personally reviewed and interpreted this imaging study as follows: My Impression: 1 view chest x-ray was obtained in the emergency department. My interpretation is no free air or signs of infiltrate, final report below. Radiologist's Impression: Chest X-Ray 08/11/23 09:23 XR chest 1V portable HISTORY: Chest pain, nonspecific COMPARISON: Chest 11/25/2021. FINDINGS: No pneumothorax. No pleural effusions. The cardiac silhouette remains mildly enlarged. Mild interstitial thickening is likely chronic. No focal lung consolidations to suggest a pneumonia. No evidence for pulmonary edema. A few small linear bibasilar densities favor subsegmental atelectasis or scarring. No acute fractures identified. IMPRESSION: No acute process. ACT 112: Negative or not required by law. Electronically signed by: Dewayne Javier M.D. 08/11/2023 10:23 AM Venous Doppler Study 08/11/23 11:04 BILATERAL LOWER EXTREMITY VENOUS DOPPLER HISTORY: CP and possible PE COMPARISON STUDY: None. FINDINGS: There is normal compressibility, flow, and augmentation within the bilateral lower extremity deep venous systems. The greater saphenous veins are not well visualized. This is likely due to the history of prior venous ablations. IMPRESSION: No DVT within the right or left lower extremity. ACT 112: Negative or not required by law. Electronically signed by: Dewayne Javier M.D. 08/11/2023 12:22 PM Discharge Plan Visit Data Chief Complaint: Chest Pain Stated Complaint: CHEST PAINS, LETHARGIC ED Provider: Td Johnson Discharge Problem: Chest pain, Elevated troponin I level Patient Disposition: Being Evaluated by Hospitalist Forms Stand Alone Forms: [facility] Prescriptions Prescriptions: No Action miconazole nitrate 2 % powder 1 applic topical DAILY PRN (Reason: rash) Qty: 90 1RF Toujeo SoloStar U-300 Insulin 300 unit/mL (1.5 mL) insulin pen 54 unit SQ HS 90 Days Qty: 18 3RF (DME) pen needle, diabetic [BD Ultra-Fine Fela Pen Needle] 32 gauge x 5/32" needle See Rx Instructions .ROUTE .MEDSUPPLY Qty: 500 3RF Rx Instructions: use 5 x daily hydrochlorothiazide 25 mg tablet 25 mg PO DAILY Qty: 90 3RF omeprazole 40 mg capsule,delayed release(DR/EC) 40 mg PO DAILY Qty: 90 3RF Repatha SureClick 140 mg/mL pen injector 140 mg subcut .every 2 weeks Qty: 6 3RF insulin lispro [Humalog KwikPen Insulin] 100 unit/mL insulin pen 150 unit SQ .COMPLEX Qty: 135 3RF Rx Instructions: 150 units subcut inject per sliding scale with meals up to 150 units daily; losartan 100 mg tablet 100 mg PO DAILY Qty: 90 3RF mecobalamin (vitamin B12) 1,000 mcg lozenge 1,000 mcg PO DAILY Rx Instructions: allow to dissolve in mouth OR may chew lightly before swallowing cholecalciferol (vitamin D3) 25 mcg (1,000 unit) capsule 25 mcg PO .COMPLEX Rx Instructions: 25 mcg orally every other day; clobetasol 0.05 % ointment 1 applic topical DAILY Qty: 45 0RF (DME) Dexcom G6 Sensor Device See Rx Instructions .ROUTE .MEDSUPPLY Qty: 3 Rx Instructions: As directed (DME) Dexcom G6 Collections Assistant Misc See Rx Instructions .ROUTE .MEDSUPPLY Qty: 1 Rx Instructions: As directed (DME) Dexcom G6 Transmitter Device See Rx Instructions .ROUTE .MEDSUPPLY Qty: 1 Rx Instructions: As directed Referrals Referrals: Td Foster MD [Primary Care Provider] - Discharge Problem: Chest pain Qualifiers: Chest pain type: unspecified Qualified Code(s): R07.9 - Chest pain, unspecified
[2023-08-11] MEDS: ASPIRIN CHEW 324 MG PO STA (09:47)
[2023-08-11] MEDS: MoRPHine SULFATE 4 MG/ML 1 ML CARP\\VIAL IV STA ×2 (09:47→12:27)
[2023-08-11] MEDS: ONDANSETRON INJ 2 MG/ML 2 ML VIAL IV STA (09:47)
[2023-08-11 10:02] LABS: Basophils # (auto) 0.06 K/uL (0.00-0.20); Eosinophils % (auto) 5.2 %; Hematocrit (blood only) 39.8 % (37.0-47.0); Hemoglobin 13.7 g/dl (12.0-16.0); Immature Granulocytes # (auto) 0.06 K/uL (0.01-0.20); Lymphocytes # (auto) 2.26 K/uL (1.20-3.40); Mean Corpuscular Hemoglobin 31.3 pg (25.0-34.0); Mean Corpuscular Hgb Conc 34.4 g/dL (32.0-36.0); Mean Corpuscular Volume 90.9 fL (80.0-100.0); Mean Platelet Volume 9.6 fL (9.4-12.4); Monocytes # (auto) 0.56 K/uL (0.11-0.59); Monocytes % (auto) 9.7 %; Neutrophils # (auto) 2.55 K/uL (1.40-6.50); Neutrophils % (auto) 44.1 %; Platelet Count 213 K/uL (130-400); Red Blood Count 4.38 M/uL (4.20-5.40); White Blood Count 5.79 K/ul (4.8-10.8)
[2023-08-11 10:18] LABS: Alanine Aminotransferase 15 U/L (7-52); Albumin Globulin Ratio 1.3 (0.9-2); Albumin Level 3.8 gm/dl (3.4-5.0); Alkaline Phosphatase 69 U/L (34-104); Anion Gap 11 (3-11); Aspartate Aminotransferase 21 U/L (13-39); BUN Creatinine Ratio 18.7 (10-20); Bilirubin,Total 0.7 mg/dl (0.2-1.0); Blood Urea Nitrogen 32 mg/dl (6-23); Calcium 9.7 mg/dl (8.6-10.3); Carbon Dioxide 22 mmol/L (21-32); Chloride 106 mmol/L (98-107); Est GFR (African American) 32.7 ml/min; Est GFR (Non-African American) 28.2 ml/min; Globulin 2.9 gm/dl (2.5-4.0); Glucose 234 mg/dl (70-99(Fasting)); Lipase 17 U/L (11-82); Potassium 3.9 mmol/L (3.5-5.1); Sodium 139 mmol/L (136-145); Total Protein 6.7 gm/dl (6.0-8.3)
[2023-08-11 10:21] LABS: Partial Thromboplastin Ratio 0.9; Partial Thromboplastin Time 25 Seconds (21-31); Prothrombin Time 10.5 Seconds (9.0-12.0)
[2023-08-11 10:24] LABS: Troponin I High Sensitivity 18.1 pg/ml (0-14)
--- NOTE | 2023-08-11 10:24 | XRay Report ---
XR chest 1V portable HISTORY: Chest pain, nonspecific COMPARISON: Chest 11/25/2021. FINDINGS: No pneumothorax. No pleural effusions. The cardiac silhouette remains mildly enlarged. Mild interstitial thickening is likely chronic. No focal lung consolidations to suggest a pneumonia. No e vidence for pulmonary edema. A few small linear bibasilar densities favor subsegmental atelectasis or scarring. No acute fractures identified. IMPRESSION: No acute process. ACT 112: Negative or not required by law. Electronically signed by: Dewayne Javier M.D. 08/11/2023 10:23 AM
[2023-08-11 10:51] LABS: D Dimer 1990 ug/L FEU (0-500)
--- NOTE | 2023-08-11 12:24 | Ultrasound Report ---
BILATERAL LOWER EXTREMITY VENOUS DOPPLER HISTORY: CP and possible PE COMPARISON STUDY: None. FINDINGS: There is normal compressibility, flow, and augmentation within the bilateral lower extremit y deep venous systems. The greater saphenous veins are not well visualized. This is likely due to the history of prior venous ablations. IMPRESSION: No DVT within the right or left lower extremity. ACT 112: Negative or not required by law. Electronically signed by: Dewayne Javier M.D. 08/11/2023 12:22 PM
[2023-08-11] MEDS: HEPARIN SODIUM/DEXTROSE 25,000 UNITS/500 ML BAG IV SCH (12:53)
[2023-08-11] MEDS: Heparin IV Adult Wt-Based Standard *NO* INITIAL Bolus Protocol IV STA (13:03)
--- NOTE | 2023-08-11 13:16 | History & Physical Report ---
Date of Service August 11, 2023 Assessment & Plan (1) Chest pain: Plan: Chest pain, shoulder blade pain. Patient has had 1 week of weakness, shortness of breath, and chest pain limiting deep breathing and left anterior chest wall pain which is not reproduced on palpation Additionally reports that she has had a aching tugging pain between her shoulder blades and is hypertensive to 217/124, with repeat 197/109 on reassessment. Reports her blood pressure is normally well-controlled in the 110s D-dimer elevated, patient initially suspected to have a PE due to past history of DVT no longer on anticoagulation. She has a IV contrast allergy of unknown reaction at [facility], although notes that she had received IV contrast several times prior to that without reaction. She has never received pretreatment. Given dissection within the differential, and also high risk for PE risk of harm from deferring scan outweighs benefit. Discussed this with the patient, she is agreeable to pretreatment with Benadryl/methylprednisolone and CTA of the chest for both PE and dissection evaluation. No PE or dissection seen on CTA. DDx includes symptomatic hypertension. Transferred to PCU with additional hypertensive control, amlodipine added to oral regimen with additional labetalol on-call Mild troponin leak, uptrending. Repeat every 6 hours ordered, echo ordered. Nitropaste ordered EKG without acute ischemic signs AM echo pending (2) Type 1 diabetes mellitus: Plan: Type 1 diabetes Admitting BSG 234 Patient on 54 units of glargine at bedtime and lispro as needed. Usual total daily dose 85-120. Will admit on basal bolus based on current basal needs, Lantus 27 units twice daily, CF 15, CR 50. Pharmacy glycemic consulted for type I DM with steroid treatment Type II heart healthy diet (3) Hypertension: Plan: Hypertension Thiazide continued, losartan continued Creatinine is at baseline on admission Acute hypertension management as noted above (4) Stage III chronic kidney disease: Plan: CKD Baseline creatinine around 1.51. 8, 1.71 on admission Trend daily Plan DVT prophylaxis: Heparin Diet: Heart healthy, DM 1 Disposition: PCU CODE STATUS: Full History of Present Illness Primary Care Provider: Td Foster MD Anamaria is a 69-year-old female with past medical history of type 1 diabetes, metabolic syndrome, CKD 3, DVT no longer on anticoagulation who presents to the ER with chest pain. Patient has had a chronic unchanged cough but day of admission she felt more weak than normal and had increased pain in her left anterior chest. EKG did not show any acute ST segment changes. She had a troponin elevation of 18/35 on admission, and was heparinized while in the ER. Patient could not get a CTA due to reported contrast allergy, unclear if patient has ever had pretreatment protocol for this before. One week ago became very short of breath, had some pain in her LEFT chest, and felt more weak than normal. Has been taking her omeprazole, lisinopril, hctz as directed but wasn't taking insulin as she had a poor appetite and wasn't eating. Today she got out of the shower and was completely exhausted, short of breath, and weak. Had sharp pain behind her LEFT breast which was worse and not radiating. Layed on the couch without improvement, tried to do some errands and 'had no energy at all.' Also has a little pain in her back right between her shoulder blades. BP very high, normally 120/60s. Was in [place] 11 years ago and had a chest spasm which felt similar in the past. Pt has an iodinated contrast allergy. She had a CT scan, had part of it, the dye was injected and then all she remembers is being pulled out of the tube and was told to never again to have iodine contrast. Patient does not remember what happened. This was at [facility]. Sees Dr. Cardoza in [place] for pancreatic cysts following x15 years. No changes. Prior to [place] had tolerated IV contrast OK. Chest pain right now is 2/10. Pain between her shoulder blades is 2/10 and sharp. Deep breathing causes pain in her L chest, stomach, and back No headache TDD insulin is usually 85-120units TOTAL per day. History of a blood clot in her RLE extremity. Medical History: Reviewed Medications: Reviewed Surgical History: Reviewed Family history: Reviewed Allergies: Reviewed Social History: Denies tobacco/ETOH Code Status: Full Code Allergies Allergy/AdvReac Type Severity Reaction Status Date / Time Iodinated Contrast Media Allergy Mild Unknown Verified 05/27/23 12:44 iodine Allergy Mild Unknown Verified 05/27/23 12:44 apixaban [From Eliquis] AdvReac Mild Hives Verified 05/27/23 12:44 atorvastatin AdvReac Mild leg cramps Verified 05/27/23 12:44 rosuvastatin AdvReac Mild leg cramps Verified 05/27/23 12:44 simvastatin AdvReac Mild leg cramps Verified 05/27/23 12:44 Home Medications Medication Instructions Recorded Confirmed Type blood-glucose meter,continuous #1 ea 10/20/20 05/27/23 History (Dexcom G6 Red Lead Burner) blood-glucose sensor (Dexcom G6 #3 ea 10/20/20 05/27/23 History Sensor device) blood-glucose transmitter (Dexcom #1 ea 10/20/20 05/27/23 History G6 Transmitter device) miconazole nitrate 2 % topical 1 applic topical DAILY PRN rash 12/20/21 08/11/23 Rx powder #90 grams cholecalciferol (vitamin D3) 25 25 mcg PO .COMPLEX 05/01/22 08/11/23 History mcg (1,000 unit) capsule insulin glargine U-300 conc 300 54 unit (0.18 mL) subcut HS 90 09/13/22 08/11/23 Rx unit/mL (1.5 mL) subcutaneous pen days #18 mL (Toujeo SoloStar U-300 Insulin) mecobalamin (vitamin B12) 1,000 1,000 mcg PO DAILY 01/23/23 08/11/23 History mcg lozenges clobetasol 0.05 % topical ointment 1 applic topical DAILY #45 grams 02/13/23 08/11/23 Rx pen needle, diabetic 32 gauge x #500 ea 05/14/23 05/27/23 Rx 5/32" (BD Ultra-Fine Fela Pen Needle) hydrochlorothiazide 25 mg tablet 25 mg PO DAILY #90 tabs 05/20/23 08/11/23 Rx evolocumab 140 mg/mL subcutaneous 140 mg subcut .every 2 weeks #6 mL 06/03/23 08/11/23 Rx pen injector (Dillon Mckay) omeprazole 40 mg capsule,delayed 40 mg PO DAILY #90 caps 06/03/23 08/11/23 Rx release insulin lispro 100 unit/mL 150 unit (1.5 mL) subcut .COMPLEX 06/10/23 08/11/23 Rx subcutaneous pen (Humalog KwikPen #135 mL (U-100) Insulin) losartan 100 mg tablet 100 mg PO DAILY #90 tabs 07/18/23 08/11/23 Rx Past Med/Surg History Medical History Left shoulder pain Pulmonary vascular congestion Gram-negative bacteremia Diarrhea UTI (urinary tract infection) Sepsis Acute kidney injury Trigger thumb, left thumb Superficial thrombosis of leg Cough Chronic x one year- stable- secondary to allergies DVT (deep venous thrombosis) june 2019 > right leg > from low activity levels > xarelto Hypertension Allergic reaction caused by a drug Type 1 diabetes mellitus, uncontrolled Acid reflux Stable and controlled - does have increased secretions at times. Benavides esophagus Dyslipidemia Osteoporosis Solitary thyroid nodule just monitoring Stage III chronic kidney disease sees Dr. 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 Glucose stable Surgical History History of biopsy of bladder History of dilatation and curettage History of esophagogastroduodenoscopy (EGD) History of colonoscopy History of tooth extraction History of adenoidectomy Hx of oophorectomy left Hx of biopsy pancreas> cysts are benign History of resection of small bowel over 50 yrs ago History of ligation of vein bilat legs History of tonsillectomy History of bilateral oophorectomy H/O cataract extraction bilat Family History Father Cardiovascular disease COPD (chronic obstructive pulmonary disease) Family history of cerebrovascular accident Myocardial infarction Stroke Mother Cardiovascular disease Family history of diabetes mellitus Hypertension Family history of cerebrovascular accident Stroke Sister Family history of coronary artery disease Family/Other Ovarian cancer Denies family history of Prostate cancer Breast cancer Colorectal cancer Social History Smoking Status: Never smoker Second Hand Exposure: Yes (as kid); Do You Dip or Chew Tobacco: No; Hx Alcohol Use: No Hx Substance Use: No Preferred Language: Serbian Communication Ability: Effective Visual Impairment: No Limitations Hearing Ability: Normal Vinyl Installer Required: No Beliefs That Will Affect Care: None marital status: Current Living Situation: Spouse current occupational status: retired How many Children do You have: 3 How many Children do You have Comment: 1 girl 2 boy Feels Safe at Home: Yes Childhood Exposure to Second-Hand Smoke: Yes Diet: regular during the past year weight has: remained stable Dental Care, Regularly: Yes Physical Activity Frequency: Daily Seatbelt Use: always Sunscreen Use: Yes Assistive Devices: None Physical Exam Physical Exam: General: A&Ox3. NAD. Cooperative. Slightly hard of hearing. HEENT: Atraumatic, normocephalic. Vision and hearing intact Pulm: CTAB A&P. -wheezes, -rales, -rhonchi. Symmetrical chest rise. No increased work of breathing. No respiratory distress. Cardiac: RRR, soft sm . Radial pulses intact and symmetrical. Patient endorses 23/10 left chest wall pain which is not reproducible on palpation. No JVD Blood pressure rechecked in right arm,188/110 post labetalol, blood pressure been 197/109 in the left arm preload Abdominal: Nontender, nondistended, soft. BS present. Extremities: Warm, dry. No pitting edema. PT pulses and radial pulses are intact and symmetrical bilaterally Results & Data Results & Data Vital Signs (Past 12 Hours) Vital Signs Temp Pulse Pulse Resp BP BP Pulse Ox 08/11/23 11:10 79 16 194/108 H 94 08/11/23 10:30 77 12 197/115 H 94 08/11/23 10:00 78 14 93 08/11/23 10:00 188/112 H 08/11/23 09:50 87 19 96 08/11/23 09:50 217/124 H 08/11/23 09:40 82 08/11/23 09:33 80 13 08/11/23 09:23 95 08/11/23 09:15 36.9 C 76 14 177/90 H 96 O2 Del Method 08/11/23 11:10 Room Air 08/11/23 10:30 08/11/23 10:00 08/11/23 10:00 08/11/23 09:50 08/11/23 09:50 08/11/23 09:40 08/11/23 09:33 08/11/23 09:23 Room Air 08/11/23 09:15 Room Air PG Care Time/CCT Total # of Minutes Spent Total Time Spent with Patient: Total time spent is greater than 50% in coordination of care (as documented) at patient's floor/unit and/or counseling patient: Coding Level of Care Code 28444 INT INP/OBS CARE 3/75MIN Diagnoses Chest pain R07.9 Chest pain type: unspecified Type 1 diabetes mellitus E10.9 Hypertension I10 Stage III chronic kidney disease N18.3 (1) Chest pain Chest pain type: unspecified Qualified Code(s): R07.9 - Chest pain, unspecified
[2023-08-11] MEDS: LABETALOL HCL IV 5 MG/ML 20ML IV STA ×2 (13:24→15:28)
[2023-08-11] MEDS ORDERED: EPINEPHrine INJ 1 MG/ML AMP IM PRN (13:57)
[2023-08-11] MEDS ORDERED: CARBOHYDRATES FOR HYPOGLYCEMIA PO PRN (14:00)
[2023-08-11] MEDS ORDERED: DEXTROSE 50% 50 ML SYRINGE IV PRN (14:00)
[2023-08-11] MEDS ORDERED: GLUCOSE 40% GEL 15 GM TUBE PO PRN (14:00)
[2023-08-11] MEDS ORDERED: GLUCOSE 10 TAB/TUBE PO PRN (14:00)
[2023-08-11] MEDS ORDERED: GLUCAGON FOR INJ 1 MG VIAL SQ PRN (14:00)
[2023-08-11] MEDS ORDERED: PHARMACY GLYCEMIC MGMT CONSULT PRN (14:00)
[2023-08-11] MEDS: methylPREDNISolone 125 MG/2 ML VIAL IV STA (14:09)
[2023-08-11] MEDS: diphenhydrAMINE 50 MG/ML VIAL IV ONE (14:09)
[2023-08-11] MEDS: OPTIRAY 320 125ml IV ONE (14:21)
[2023-08-11] MEDS: methylPREDNISolone 125 MG/2 ML VIAL ONE (14:29)
[2023-08-11] MEDS: diphenhydrAMINE 50 MG/ML VIAL ONE (14:29)
--- NOTE | 2023-08-11 14:48 | Pharmacy Report ---
Pharmacy Glycemic Short Note 2 - Date of Service August 11, 2023 - Glycemic Short BSG Results (Last 24 hours): 08/11/23 09:32 Glucose 234 H OUTPATIENT ANTIDIABETIC REGIMEN: * Toujeo 54 units hs, humalog SSI (per outpatient notes, CR 1:3 with breakfast, CR 1:4 with lunch and CR 1:2.5 with dinner) ASSESSMENT: * 77 year old, admitted with chest pain. Patient receiving one time dose of steroids on admission, anticipate steroid induced hyperglycemia. Patient is type 1 vs 1.5 diabetic per notes. No basal insulin yet today, will give Lantus 30 units x 1 now. Will add on scale for HS in case BSGs trending upward. PLAN FOR INPATIENT GLYCEMIC CONTROL: * Hold outpatient oral diabetes medications * Basal insulin * Lantus 30 units x 1 now * Lantus 0-10 units HS * Bolus insulin * NovoLog per scale ACHS or Q6hrs while NPO * Goal Range: Low 110 mg/dL - High 140 mg/dL * Correction Factor: 15 mg/dL/unit * Nutritional / Prandial insulin per carb ratio of 1 unit per 4 grams CHO consumed
--- NOTE | 2023-08-11 15:00 | CT Scan Report ---
CHEST CTA for AORTIC DISSECTION CT DOSE: 1385.79 mGy.cm HISTORY: Mid chest and back pain. TECHNIQUE: Multiaxial CT images of the chest were performed both before and after the intravenous adm inistration of contrast to evaluate the aorta. 3D/MIP images were also obtained. Sagittal and coronal reformations were also reviewed. A dose lowering technique was utilized adhering to the principles of ALARA. COMPARISON STUDY: Abdomen and pelvis CT 11/26/2021. FINDINGS: Noncontrast imaging through the chest shows no evidence for an intramural hematoma within t he thoracic aorta. There are moderate to severe coronary artery calcifications noted. The thoracic ao rta is normal in course and caliber with no evidence for a dissection. The study was not performed as a dedicated PE study. Mild mixing artifact noted within the central pulmonary arteries. However, no definite filling defects within the pulmonary arteries to suggest a pulmonary embolus. Degenerative c hanges within the thoracic spine. Minimal deformity at the superior endplate of T4 is likely chronic. No acute fractures within the chest. There are few small gallstones. The visualized liver, spleen, a drenal glands unremarkable. Innumerable small cystic lesions again noted within the pancreas with a p artially visualized 9 mm stone at the distal main pancreatic duct. This remains unchanged. Normal eso phagus. Normal thyroid gland. Paravertebral soft tissues are unremarkable. No significant central can al narrowing by CT technique. The heart is normal in size. No pericardial effusion. No hilar lymphade nopathy. A few prominent mediastinal lymph nodes aren't doubtful clinical significance. No pneumothor ax. The central airways are patent. No focal lung consolidations to suggest a pneumonia. No evidence for pulmonary edema. IMPRESSION: 1. No evidence for an aortic dissection. 2. No evidence for a pulmonary embolus. 3. Cholelithiasis. 4. Innumerable small cystic lesions again noted within the pancreas with a partially visualized 9 mm stone at the distal main pancreatic duct. This remains unchanged. ACT 112: Negative or not required by law. Electronically signed by: Dewayne Javier M.D. 08/11/2023 2:58 PM
[2023-08-11] MEDS: amLODIPine BESYLATE 5 MG TAB PO ONE (15:23)
[2023-08-11] MEDS: INSULIN ASPART PER UNIT CHARGE SC SCH (15:36)
[2023-08-11] MEDS: NITROGLYCERIN 2% OINTMENT 30GM TUBE EXT SCH ×2 (15:36→20:06)
[2023-08-11] MEDS: LANTUS PER UNIT CHARGE SQ ONE (15:37)
--- NOTE | 2023-08-11 16:43 | Electrocardiogram Report ---
Test Reason : Blood Pressure : / mmHG Vent. Rate : 078 BPM Atrial Rate : 078 BPM P-R Int : 192 ms QRS Dur : 090 ms QT Int : 410 ms P-R-T Axes : 059 -20 075 degrees QTc Int : 467 ms Normal sinus rhythm Normal ECG When compared with ECG of 11-AUG-2023 09:24, (unconfirmed) No significant change was found Confirmed by Adelfo Flannery ([id number]) on 08/11/2023 4:43:34 PM Referred By: REFERRED SELF Confirmed By:Steffen Flannery
--- NOTE | 2023-08-11 16:43 | Electrocardiogram Report ---
Test Reason : Blood Pressure : / mmHG Vent. Rate : 085 BPM Atrial Rate : 085 BPM P-R Int : 190 ms QRS Dur : 086 ms QT Int : 404 ms P-R-T Axes : 063 -04 076 degrees QTc Int : 480 ms Normal sinus rhythm Low voltage QRS Borderline ECG When compared with ECG of 24-NOV-2021 05:54, No significant change was found Confirmed by Adelfo Flannery ([id number]) on 08/11/2023 4:43:38 PM Referred By: REFERRED SELF Confirmed By:Steffen Flannery
[2023-08-11 20:18] LABS: ANTI-Xa, UFH(UnfractionatedHep < 0.10 IU/ml (0.3-0.7)
[2023-08-11] MEDS ORDERED: LANTUS PER UNIT CHARGE SQ ONE (21:00)
[2023-08-11] MEDS: HEPARIN SOD 5,000 UNIT/0.5 ML VIAL SQ SCH (21:07)
[2023-08-11] MEDS: LANTUS PER UNIT CHARGE SC SCH (21:07)
[2023-08-12] MEDS: INSULIN ASPART PER UNIT CHARGE SC SCH (00:02)
[2023-08-12 03:52] LABS: Appearance Urine Cloudy (Clear); Bacteria Urine Automated 4+ (None Seen); Bilirubin Urine Negative (Negative); Blood Urine 3+ (Negative); Cast Urine Automated 0-2 /lpf (0-2); Color Urine Yellow; Epithelial Cell Urine Auto 0-2 /hpf (0-2); Glucose Urine UA 3+ (Negative); Ketones Urine Negative (Negative); Leukocyte Esterase Urine 2+ (Negative); Nitrite Urine Negative (Negative); Protein Urine 1+ (Negative); RBC Urine Automated >20 /hpf (0-2); Specific Gravity Urine 1.041 (1.000-1.030); Urobilinogen Urine Negative (Negative); WBC Urine Automated >50 /hpf (0-5)
[2023-08-12 04:11] LABS: Total Protein Urine Random 39.4 mg/dl (0-11.9)
[2023-08-12 04:17] LABS: Creatinine Urine Random 111.1 mg/dl; Protein Creatinine Ratio Urine 0.4 (0-0.2)
[2023-08-12 06:13] LABS: Basophils # (auto) 0.01 K/uL (0.00-0.20); Basophils % (auto) 0.1 %; Eosinophils # (auto) 0.01 K/uL (0.00-0.50); Eosinophils % (auto) 0.1 %; Hematocrit (blood only) 39.1 % (37.0-47.0); Hemoglobin 14.1 g/dl (12.0-16.0); Immature Granulocytes # (auto) 0.07 K/uL (0.01-0.20); Immature Granulocytes % (auto) 0.7 %; Lymphocytes # (auto) 1.37 K/uL (1.20-3.40); Lymphocytes % (auto) 14.1 %; Mean Corpuscular Hemoglobin 32.5 pg (25.0-34.0); Mean Corpuscular Hgb Conc 36.1 g/dL (32.0-36.0); Mean Corpuscular Volume 90.1 fL (80.0-100.0); Mean Platelet Volume 9.4 fL (9.4-12.4); Monocytes # (auto) 0.12 K/uL (0.11-0.59); Monocytes % (auto) 1.2 %; Neutrophils # (auto) 8.16 K/uL (1.40-6.50); Neutrophils % (auto) 83.8 %; Platelet Count 247 K/uL (130-400); RDW Coefficient of Variation 12.7 % (11.5-14.5); RDW Standard Deviation 41.8 fL (36.4-46.3); Red Blood Count 4.34 M/uL (4.20-5.40); White Blood Count 9.74 K/ul (4.8-10.8)
[2023-08-12 06:18] LABS: BUN Creatinine Ratio 23.8 (10-20); Calcium 9.7 mg/dl (8.6-10.3); Creatinine Clr Calc Pharmacy 28.9 ml/min; Est GFR (African American) 28.9 ml/min; Potassium 4.1 mmol/L (3.5-5.1)
[2023-08-12] MEDS: PANTOprazole 40 MG TAB PO SCH (08:07)
[2023-08-12] MEDS: LOSARTAN POTASSIUM 50 MG TAB PO SCH (08:07)
[2023-08-12] MEDS: hydroCHLOROthiazide 25 MG TAB PO SCH (08:07)
[2023-08-12] MEDS: LANTUS PER UNIT CHARGE SQ ONE (09:01)
--- NOTE | 2023-08-12 09:25 | Pharmacy Report ---
Pharmacy Glycemic Short Note 2 - Date of Service August 12, 2023 - Glycemic Short BSG Results (Last 24 hours): 08/11/23 08/11/23 08/11/23 09:32 14:51 17:50 Glucose 234 H POC Glucose 204 H 203 H 08/11/23 08/11/23 08/11/23 20:59 21:00 23:54 Glucose POC Glucose 331 H* 348 H* 311 H* 08/12/23 08/12/23 08/12/23 03:59 05:35 07:04 Glucose 226 H POC Glucose 228 H 201 H OUTPATIENT ANTIDIABETIC REGIMEN: * Toujeo 54 units hs, humalog SSI (per outpatient notes, CR 1:3 with breakfast, CR 1:4 with lunch and CR 1:2.5 with dinner) ASSESSMENT: 08/11: * BSGs yesterday were [phone] mg/dL and fasting this morning was 201 mg/dL. Patient received a total of 77 units of insulin yesterday 40 of which was basal. * Evening hyperglycemia likely a result of the 125 mg dose of solumedrol given on admission. No subsequent steroid doses have been ordered. * Will reduce morning Lantus does to allow fro more flexibility with evening scale as I expect BSGs to continue to trend towards normal without additional steroid doses. * Patient is ordered a diet and is consistently eating 08/10 * 77 year old, admitted with chest pain. Patient receiving one time dose of steroids on admission, anticipate steroid induced hyperglycemia. Patient is type 1 vs 1.5 diabetic per notes. No basal insulin yet today, will give Lantus 30 units x 1 now. Will add on scale for HS in case BSGs trending upward. PLAN FOR INPATIENT GLYCEMIC CONTROL: * Hold outpatient oral diabetes medications * Basal insulin * Lantus 20 units x 1 this morning * Lantus 5-10-15 units HS -See MAR for details * Bolus insulin * NovoLog per scale ACHS or Q6hrs while NPO * Goal Range: Low 110 mg/dL - High 140 mg/dL * Correction Factor: 15 mg/dL/unit * Nutritional / Prandial insulin per carb ratio of 1 unit per 4 grams CHO consumed
[2023-08-12] MEDS: ACETAMINOPHEN 325 MG TAB PO PRN (11:57)
--- NOTE | 2023-08-12 12:29 | XCELERA ---
[id number]
[2023-08-12] MEDS ORDERED: cefTRIAXone SODIUM 1,000 MG in DEXTROSE 5 % MINI-B 50 ML IV SCH (13:30)
--- NOTE | 2023-08-12 13:47 | Electrocardiogram Report ---
Test Reason : Blood Pressure : / mmHG Vent. Rate : 098 BPM Atrial Rate : 098 BPM P-R Int : 188 ms QRS Dur : 082 ms QT Int : 408 ms P-R-T Axes : 071 -06 038 degrees QTc Int : 520 ms Normal sinus rhythm Prolonged QT Abnormal ECG When compared with ECG of 11-AUG-2023 10:30, QT has lengthened Confirmed by Adelfo Flannery ([id number]) on 08/12/2023 1:47:37 PM Referred By: REFERRED SELF Confirmed By:Steffen Flannery
[2023-08-12] MEDS: cefTRIAXone SODIUM 2,000 MG in DEXTROSE 5 % MINI-B 50 ML IV SCH (14:05)
--- NOTE | 2023-08-12 17:09 | Hospitalist Progress Note ---
Date of Service August 12, 2023 Assessment & Plan (1) Hypertensive emergency: Plan: Hypertensive emergency present on admission with peak BP 217/124 associated with chest pain and elevated troponin Unclear trigger, states her BP is usually well controlled on usual outpatient regimen, did not miss any meds, no dietary indiscretions Improved overnight, stop nitropaste -continue usual losartan and HCTZ, added amlodipine -good control throughout today (2) Chest pain: Plan: Left sided chest pain and elevated troponin to peak of 245, now downtrending EKG without evidence of STEMI. CP resolved with control of BP. Had one similar episode at rest in past. SHIVA reviewed - reassuring with normal LVEF and no rwma's CTPA in ED without PE or aortic dissection Troponin elevation most likely demand ischemia related to hypertensive emergency, however, she has a significant risk of underlying coronary artery disease: Strong FH and multiple other cardiac risk factors (DM1, CKD-3, HTN) and may benefit from ischemic evaluation -consulted cardiology (3) Type 1 diabetes mellitus: Plan: Type 1 diabetes Admitting BSG 234 Patient on 54 units of glargine at bedtime and lispro as needed. Usual total daily dose 85-120. Will admit on basal bolus based on current basal needs, Lantus 27 units twice daily, CF 15, CR 50. Pharmacy glycemic consulted for type I DM with steroid treatment above goal today BG 201-263 but improved from yesterday (4) Hypertension: Plan: see above (5) Stage III chronic kidney disease: Plan: CKD-3 with baseline Cr 1.[address] Harry kahn today, near baseline at 1.89 - AM BMP Plan UTI - start ceftriaxone, follow Cx DVT ppx: SQ heparin Admission and Anticipated Discharge Date Admission Date: August 11, 2023 Subjective No further left sided chest pain since BP controlled overnight. No shortness of breath. Had similar episode of L sided precordial chest pain several weeks ago while sitting down. No classic angina such as exertional chest pain or dyspnea. Both parents had UT in their 50s. Has intermittent RUQ pain but states she has a gallstone and its related to that Has had fatigue/malaise recently and hard to control hyperglycemia but no dysuria/frequency. Had no bladder sx when bacteremic from UTI last year though. Physical Exam 2 Physical Exam: PHYSICAL EXAMINATION Last 24h vital signs reviewed, see documentation in flowsheet General: comfortable appearing, no distress HEENT: Normocephalic, atraumatic, pupils round and equal, sclerae anicteric, no conjunctival injection, moist mucus membranes Lungs: Normal respiratory effort. Clear to auscultation bilaterally. No RRW Heart: Regular rate and rhythm, no murmurs. No JVD Abdomen: Soft, nontender, nondistended. Bowel sounds present. Extremities: Warm, dry, well-perfused. No extremity edema. Neuro: Alert and oriented x 4, face symmetric, moves 4 extremities well Psych: Normal affect and behavior Results & Data Results & Data Vital Signs (Past 12 Hours) Vital Signs Temp Pulse Pulse Pulse Resp BP Pulse Ox 08/12/23 15:44 36.5 C 92 H 18 124/73 94 08/12/23 15:00 94 H 08/12/23 11:27 36.8 C 97 H 18 132/67 94 08/12/23 08:00 08/12/23 07:17 36.4 C L 96 H 20 143/77 H 93 08/12/23 07:00 92 H O2 Del Method 08/12/23 15:44 Room Air 08/12/23 15:00 08/12/23 11:27 Room Air 08/12/23 08:00 Room Air 08/12/23 07:17 Room Air 08/12/23 07:00 Laboratory Results 08/12/23 05:35 08/12/23 05:35 PG Care Time/CCT Total # of Minutes Spent Total Time Spent with Patient: Total time spent is greater than 50% in coordination of care (as documented) at patient's floor/unit and/or counseling patient: Coding Level of Care Code 47702 SUB INP/OBS CARE 2/35MIN Diagnoses Hypertensive emergency I16.1 Chest pain R07.9 Chest pain type: unspecified Type 1 diabetes mellitus E10.9 Hypertension I10 Stage III chronic kidney disease N18.3 (2) Chest pain Chest pain type: unspecified Qualified Code(s): R07.9 - Chest pain, unspecified
--- NOTE | 2023-08-12 17:17 | Cardiology Consultation ---
Date of Consultation August 12, 2023 Assessment & Plan (1) Hypertensive emergency: (2) Elevated troponin I level: (3) Chest pain: Plan 1. Elevated troponin: Technically this is an NSTEMI. However, the mechanism I think is in question. She certainly had elevated blood pressures at the time of admission which in the face of moderate LVH could certainly have produced some elevation of biomarkers. However, her symptoms were quite concerning. Given her risk factors I do not think we can discount an acute coronary syndrome. The overall biomarker elevation was quite small there is no evidence wall motion abnormality on her echocardiogram, but she has at least an intermediate probability of significant disease. We did discuss options for evaluation to include invasive catheterization versus perfusion imaging. I recommended a catheterization in after discussion with her daughter she is agreeable. Will plan on proceeding tomorrow. She has a history of a contrast allergy, but listening to her story of the event I do not think this represents a true allergy. Very likely a vagal response to contrast administration. However, she was premedicated last night without affecting will premedicate her again for her catheterization tomorrow. 2. Chest pain: Concerning for an acute coronary syndrome. Resolved currently. Biomarkers trending downward. 3. Hypertension: Generally she feels she has good blood pressure control. Unclear what precipitated such notable rise in her blood pressure at the time of admission. Possibly the situation itself and associated anxiety. Will continue to monitor here in the hospital and just her medical regimen as necessary based on her catheterization results tomorrow and blood pressure readings. History of Present Illness Reason for Consultation: Chest pain, elevated troponin Requesting Physician: Bello Attending Physician: Claire Monsalve MD History of Present Illness The patient is a 77-year-old woman without a known history of cardiac disease who presented emergency room with an episode of chest discomfort. Patient states that she had a mild sense of chest discomfort earlier in the week. This occurred at rest was left precordial in nature. She described as a pressure sensation which was fairly fleeting in nature. It resolved without intervention. Yesterday morning the patient was taking a shower when she began to feel poorly. She stated she was very tired and felt very weak. She began to experience similar symptoms to the day prior which involves some back and left- sided chest discomfort. Due to the nature and extent of the symptoms she came to the hospital for evaluation. She states she was given morphine in the emergency room and this eventually relieved her symptoms. She has not had recurrence and she has been in the hospital. She is not appear to have associ ated dyspnea, dizziness or sense of palpitation. In general she is a sedentary individual. She likes to perform sedentary tasks. She did not report any specific limitations associated with activity but does not ascend stairs or exercise regularly. She generally does not have symptoms of chest pain, limiting dyspnea, palpitations, dizziness or syncope. Allergies Allergy/AdvReac Type Severity Reaction Status Date / Time Iodinated Contrast Media Allergy Mild Unknown Verified 05/27/23 12:44 iodine Allergy Mild Unknown Verified 05/27/23 12:44 apixaban [From Eliquis] AdvReac Mild Hives Verified 05/27/23 12:44 atorvastatin AdvReac Mild leg cramps Verified 05/27/23 12:44 rosuvastatin AdvReac Mild leg cramps Verified 05/27/23 12:44 simvastatin AdvReac Mild leg cramps Verified 05/27/23 12:44 Home Medications Medication Instructions Recorded Confirmed Type blood-glucose meter,continuous #1 ea 10/20/20 05/27/23 History (Dexcom G6 Street Car Inspector) blood-glucose sensor (Dexcom G6 #3 ea 10/20/20 05/27/23 History Sensor device) blood-glucose transmitter (Dexcom #1 ea 10/20/20 05/27/23 History G6 Transmitter device) miconazole nitrate 2 % topical 1 applic topical DAILY PRN rash 12/20/21 08/11/23 Rx powder #90 grams cholecalciferol (vitamin D3) 25 25 mcg PO .COMPLEX 05/01/22 08/11/23 History mcg (1,000 unit) capsule insulin glargine U-300 conc 300 54 unit (0.18 mL) subcut HS 90 09/13/22 08/11/23 Rx unit/mL (1.5 mL) subcutaneous pen days #18 mL (Toujeo SoloStar U-300 Insulin) mecobalamin (vitamin B12) 1,000 1,000 mcg PO DAILY 01/23/23 08/11/23 History mcg lozenges clobetasol 0.05 % topical ointment 1 applic topical DAILY #45 grams 02/13/23 08/11/23 Rx pen needle, diabetic 32 gauge x #500 ea 05/14/23 05/27/23 Rx 532" (BD Ultra-Fine Fela Pen Needle) hydrochlorothiazide 25 mg tablet 25 mg PO DAILY #90 tabs 05/20/23 08/11/23 Rx evolocumab 140 mg/mL subcutaneous 140 mg subcut .every 2 weeks #6 mL 06/03/23 08/11/23 Rx pen injector (Repatha SureClick) omeprazole 40 mg capsule,delayed 40 mg PO DAILY #90 caps 06/03/23 08/11/23 Rx release insulin lispro 100 unit/mL 150 unit (1.5 mL) subcut .COMPLEX 06/10/23 08/11/23 Rx subcutaneous pen (Humalog KwikPen #135 mL (U-100) Insulin) losartan 100 mg tablet 100 mg PO DAILY #90 tabs 07/18/23 08/11/23 Rx Patient History Medical History Left shoulder pain Pulmonary vascular congestion Gram-negative bacteremia Diarrhea UTI (urinary tract infection) Sepsis Acute kidney injury Trigger thumb, left thumb Superficial thrombosis of leg Cough Chronic x one year- stable- secondary to allergies DVT (deep venous thrombosis) june 2019 > right leg > from low activity levels > xarelto Hypertension Allergic reaction caused by a drug Type 1 diabetes mellitus, uncontrolled Acid reflux Stable and controlled - does have increased secretions at times. Benavides esophagus Dyslipidemia Osteoporosis Solitary thyroid nodule just monitoring Stage III chronic kidney disease sees Dr. 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 Glucose stable Surgical History History of biopsy of bladder History of dilatation and curettage History of esophagogastroduodenoscopy (EGD) History of colonoscopy History of tooth extraction History of adenoidectomy Hx of oophorectomy left Hx of biopsy pancreas> cysts are benign History of resection of small bowel over 50 yrs ago History of ligation of vein bilat legs History of tonsillectomy History of bilateral oophorectomy H/O cataract extraction bilat Family History Father Cardiovascular disease COPD (chronic obstructive pulmonary disease) Family history of cerebrovascular accident Myocardial infarction Stroke Mother Cardiovascular disease Family history of diabetes mellitus Hypertension Family history of cerebrovascular accident Stroke Sister Family history of coronary artery disease Family/Other Ovarian cancer Denies family history of Prostate cancer Breast cancer Colorectal cancer Social History Smoking Status: Never smoker Second Hand Exposure: No; Do You Dip or Chew Tobacco: No; Hx Alcohol Use: No Hx Substance Use: No Preferred Language: Sudanese Communication Ability: Effective Visual Impairment: No Limitations Hearing Ability: Normal Neonatal Nurse Required: No Beliefs That Will Affect Care: None marital status: Current Living Situation: Spouse Current Living Situation Comment: Lives at home with current occupational status: retired How many Children do You have: 3 How many Children do You have Comment: 1 girl 2 boy Other Information That Helps Us Care for You: No Feels Safe at Home: Yes Safety Concerns: Feels Safe At This Time Childhood Exposure to Second-Hand Smoke: Yes Diet: regular during the past year weight has: remained stable Dental Care, Regularly: Yes Physical Activity Frequency: Daily Seatbelt Use: always Sunscreen Use: Yes Assistive Devices: None Review of Systems Review of Systems: Per HPI Physical Exam Physical Exam: She is alert and oriented x3. Mood affect appear normal. She answered all questions appropriately. HEENT: Sclerae are anicteric. Pupils are equal and reactive to light and accommodation. Extraocular movements were intact. Neuro: Cranial nerves intact Lungs: Lungs are clear to auscultation bilaterally. There are no rales wheezes or rhonchi. She has normal respiratory effort without use of accessory muscles. There is normal pulmonary excursion. Cardiac: The rhythm was regular. S1 and S2 were normal. There are no murmurs on examination. The PMI was not markedly displaced on palpation. Extremities: Patient has bilateral radial pulses that are equal in intensity. There is no evidence cyanosis or clubbing. There was no evidence of significant peripheral edema bilaterally. Skin: There are no rashes noted on examination today. Results & Data Vital Signs (Past 12 Hours) Vital Signs Temp Pulse Pulse Pulse Resp BP Pulse Ox 08/12/23 15:44 36.5 C 92 H 18 124/73 94 08/12/23 15:00 94 H 08/12/23 11:27 36.8 C 97 H 18 132/67 94 08/12/23 08:00 08/12/23 07:17 36.4 C L 96 H 20 143/77 H 93 08/12/23 07:00 92 H O2 Del Method 08/12/23 15:44 Room Air 08/12/23 15:00 08/12/23 11:27 Room Air 08/12/23 08:00 Room Air 08/12/23 07:17 Room Air 08/12/23 07:00 Laboratory Results Abnormal Lab Results 08/11/23 08/11/23 08/11/23 17:50 19:16 20:59 WBC RBC Hgb Hct MCV MCH MCHC RDW Std Deviation RDW Coeff of Dior Plt Count MPV Immature Gran % (Auto) Neut % (Auto) Lymph % (Auto) [place] % (Auto) Eos % (Auto) Baso % (Auto) Neut # (Auto) Lymph # (Auto) [place] # (Auto) Eos # (Auto) Baso # (Auto) Immature Gran # (Auto) Heparin Anti-Xa, Unfract < 0.10 L Sodium Potassium Chloride Carbon Dioxide Anion Gap BUN Creatinine Est Cr Clr Drug Dosing Est GFR ( Amer) Est GFR (Non-Af Amer) BUN/Creatinine Ratio Glucose POC Glucose 203 H 331 H* Calcium Troponin I High Sens Urine Color Urine Appearance Urine pH Ur Specific [place] Urine Protein Urine Glucose (UA) Urine Ketones Urine Blood Urine Nitrite Urine Bilirubin Urine Urobilinogen Ur Leukocyte Esterase Urine WBC (Auto) Urine RBC (Auto) U Hyaline Cast (Auto) U Epithel Cells (Auto) Urine Bacteria (Auto) Ur Random Creatinine U Random Total Protein Protein/Creatinin Ratio 08/11/23 08/11/23 08/11/23 21:00 23:54 23:55 WBC RBC Hgb Hct MCV MCH MCHC RDW Std Deviation RDW Coeff of Dior Plt Count MPV Immature Gran % (Auto) Neut % (Auto) Lymph % (Auto) [place] % (Auto) Eos % (Auto) Baso % (Auto) Neut # (Auto) Lymph # (Auto) [place] # (Auto) Eos # (Auto) Baso # (Auto) Immature Gran # (Auto) Heparin Anti-Xa, Unfract Sodium Potassium Chloride Carbon Dioxide Anion Gap BUN Creatinine Est Cr Clr Drug Dosing Est GFR ( Amer) Est GFR (Non-Af Amer) BUN/Creatinine Ratio Glucose POC Glucose 348 H* 311 H* Calcium Troponin I High Sens 245.1 H* D Urine Color Urine Appearance Urine pH Ur Specific [place] Urine Protein Urine Glucose (UA) Urine Ketones Urine Blood Urine Nitrite Urine Bilirubin Urine Urobilinogen Ur Leukocyte Esterase Urine WBC (Auto) Urine RBC (Auto) U Hyaline Cast (Auto) U Epithel Cells (Auto) Urine Bacteria (Auto) Ur Random Creatinine U Random Total Protein Protein/Creatinin Ratio 08/12/23 08/12/23 08/12/23 03:59 05:35 07:04 WBC 9.74 RBC 4.34 Hgb 14.1 Hct 39.1 MCV 90.1 MCH 32.5 MCHC 36.1 H RDW Std Deviation 41.8 RDW Coeff of Dior 12.7 Plt Count 247 MPV 9.4 Immature Gran % (Auto) 0.7 Neut % (Auto) 83.8 Lymph % (Auto) 14.1 [place] % (Auto) 1.2 Eos % (Auto) 0.1 Baso % (Auto) 0.1 Neut # (Auto) 8.16 H Lymph # (Auto) 1.37 [place] # (Auto) 0.12 Eos # (Auto) 0.01 Baso # (Auto) 0.01 Immature Gran # (Auto) 0.07 Heparin Anti-Xa, Unfract Sodium 134 L Potassium 4.1 Chloride 99 Carbon Dioxide 19 L Anion Gap 16 H BUN 45 H Creatinine 1.89 H Est Cr Clr Drug Dosing 28.9 Est GFR ( Amer) 28.9 Est GFR (Non-Af Amer) 25.0 BUN/Creatinine Ratio 23.8 H Glucose 226 H POC Glucose 228 H 201 H Calcium 9.7 Troponin I High Sens 213.7 H* Urine Color Urine Appearance Urine pH Ur Specific [place] Urine Protein Urine Glucose (UA) Urine Ketones Urine Blood Urine Nitrite Urine Bilirubin Urine Urobilinogen Ur Leukocyte Esterase Urine WBC (Auto) Urine RBC (Auto) U Hyaline Cast (Auto) U Epithel Cells (Auto) Urine Bacteria (Auto) Ur Random Creatinine U Random Total Protein Protein/Creatinin Ratio 08/12/23 08/12/23 08/12/23 11:12 11:17 16:31 WBC RBC Hgb Hct MCV MCH MCHC RDW Std Deviation RDW Coeff of Dior Plt Count MPV Immature Gran % (Auto) Neut % (Auto) Lymph % (Auto) [place] % (Auto) Eos % (Auto) Baso % (Auto) Neut # (Auto) Lymph # (Auto) [place] # (Auto) Eos # (Auto) Baso # (Auto) Immature Gran # (Auto) Heparin Anti-Xa, Unfract Sodium Potassium Chloride Carbon Dioxide Anion Gap BUN Creatinine Est Cr Clr Drug Dosing Est GFR ( Amer) Est GFR (Non-Af Amer) BUN/Creatinine Ratio Glucose POC Glucose 263 H 222 H Calcium Troponin I High Sens 177.1 H* Urine Color Urine Appearance Urine pH Ur Specific [place] Urine Protein Urine Glucose (UA) Urine Ketones Urine Blood Urine Nitrite Urine Bilirubin Urine Urobilinogen Ur Leukocyte Esterase Urine WBC (Auto) Urine RBC (Auto) U Hyaline Cast (Auto) U Epithel Cells (Auto) Urine Bacteria (Auto) Ur Random Creatinine U Random Total Protein Protein/Creatinin Ratio 08/12/23 Unknown WBC RBC Hgb Hct MCV MCH MCHC RDW Std Deviation RDW Coeff of Dior Plt Count MPV Immature Gran % (Auto) Neut % (Auto) Lymph % (Auto) [place] % (Auto) Eos % (Auto) Baso % (Auto) Neut # (Auto) Lymph # (Auto) [place] # (Auto) Eos # (Auto) Baso # (Auto) Immature Gran # (Auto) Heparin Anti-Xa, Unfract Sodium Potassium Chloride Carbon Dioxide Anion Gap BUN Creatinine Est Cr Clr Drug Dosing Est GFR ( Amer) Est GFR (Non-Af Amer) BUN/Creatinine Ratio Glucose POC Glucose Calcium Troponin I High Sens Urine Color Yellow Urine Appearance Cloudy A Urine pH 5.0 Ur Specific [place] 1.041 H Urine Protein 1+ H Urine Glucose (UA) 3+ H Urine Ketones Negative Urine Blood 3+ H Urine Nitrite Negative Urine Bilirubin Negative Urine Urobilinogen Negative Ur Leukocyte Esterase 2+ H Urine WBC (Auto) >50 H Urine RBC (Auto) >20 H U Hyaline Cast (Auto) 0-2 U Epithel Cells (Auto) 0-2 Urine Bacteria (Auto) 4+ H Ur Random Creatinine 111.1 U Random Total Protein 39.4 H Protein/Creatinin Ratio 0.4 H Diagnostic Findings Echocardiogram performed 08/12/2023: Normal LV systolic function. Moderate LVH. Normal wall motion. Mild left atrial dilation. Chest CTA performed the time admission not reveal any evidence of aortic dissection. No pulmonary embolus. Multiple cysts on the pancreas. ECG Additional Comments: EKG demonstrated normal sinus rhythm. No significant ST or T-wave changes. PG Care Time/CCT Total # of Minutes Spent Total Time Spent with Patient: Total time spent is greater than 50% in coordination of care (as documented) at patient's floor/unit and/or counseling patient: Coding Level of Care Code 42568 INT INP/OBS CARE 3/75MIN Diagnoses Hypertensive emergency I16.1 Elevated troponin I level R79.89 Chest pain R07.9 Chest pain type: unspecified (3) Chest pain Chest pain type: unspecified Qualified Code(s): R07.9 - Chest pain, unspecified
[2023-08-12] MEDS ORDERED: Nursing to Pharmacy Communication SCH (17:30)
[2023-08-12] MEDS: predniSONE 50 MG TAB PO ONE (20:20)
[2023-08-13] MEDS ORDERED: TICAGRELOR 90 MG TAB PO SCH
[2023-08-13] MEDS: predniSONE 50 MG TAB PO ONE ×2 (04:00→09:26)
[2023-08-13 06:26] LABS: BUN Creatinine Ratio 28.5 (10-20); Calcium 9.8 mg/dl (8.6-10.3); Creatinine Clr Calc Pharmacy 30.4 ml/min; Est GFR (African American) 30.9 ml/min; Est GFR (Non-African American) 26.7 ml/min; Potassium 4.9 mmol/L (3.5-5.1)
[2023-08-13 06:28] LABS: Basophils # (auto) 0.02 K/uL (0.00-0.20); Basophils % (auto) 0.1 %; Eosinophils # (auto) 0.01 K/uL (0.00-0.50); Eosinophils % (auto) 0.1 %; Hemoglobin 14.2 g/dl (12.0-16.0); Immature Granulocytes # (auto) 0.13 K/uL (0.01-0.20); Immature Granulocytes % (auto) 0.9 %; Lymphocytes # (auto) 1.48 K/uL (1.20-3.40); Lymphocytes % (auto) 10.2 %; Mean Corpuscular Hgb Conc 36.4 g/dL (32.0-36.0); Mean Corpuscular Volume 87.8 fL (80.0-100.0); Mean Platelet Volume 9.6 fL (9.4-12.4); Monocytes # (auto) 0.25 K/uL (0.11-0.59); Monocytes % (auto) 1.7 %; Neutrophils # (auto) 12.58 K/uL (1.40-6.50); Platelet Count 281 K/uL (130-400); RDW Coefficient of Variation 12.6 % (11.5-14.5); RDW Standard Deviation 40.2 fL (36.4-46.3); Red Blood Count 4.44 M/uL (4.20-5.40); White Blood Count 14.47 K/ul (4.8-10.8)
--- NOTE | 2023-08-13 07:22 | Hospitalist Progress Note ---
Date of Service August 13, 2023 Assessment & Plan (1) Hypertensive emergency: Plan: Hypertensive emergency present on admission with peak BP 217/124 associated with chest pain and elevated troponin Unclear trigger, states her BP is usually well controlled on usual outpatient regimen, did not miss any meds, no dietary indiscretions BP Improved but remains moderately elevated -continue usual losartan and HCTZ, changed amlodipine to carvedilol because of CAD, see below (2) NSTEMI (non-ST elevated myocardial infarction): Plan: Present on admission. Unable to determine whether type 1 or type 2 Left sided chest pain and elevated troponin to peak of 245, now downtrending EKG without evidence of STEMI. CP resolved with control of BP. Had one similar episode at rest in past. SHIVA reviewed - reassuring with normal LVEF and no rwma's CTPA in ED without PE or aortic dissection Troponin elevation most likely demand ischemia related to hypertensive emergency, however, she has a significant risk of underlying coronary artery disease: Strong FH and multiple other cardiac risk factors (DM1, CKD-3, HTN) -consulted cardiology, Dr. Flannery -coronary angiography today, PCI with TANIA to RCA, LAD lesion evaluated and had DANIE 3 flow so no intervention -pretreated with steroids for hx contrast reaction -DAPT - ASA (ordered) + brilinta, ordered atorvastatin and AM lipid panel, carvedilol, already on ARB -follow up with cardiology (3) Type 1 diabetes mellitus: Plan: Type 1 diabetes Usual total daily dose 85-120. Has a CGM. She is trying to get qualified for insulin pump in future continue basal bolus insulin. steroid induced hyperglycemia (contrast allergy pretreatment). Pharmacy glycemic consult BG above goal at 200 this AM has been NPO for procedure also pretreated with prednisone (4) Hypertension: Plan: see above (5) Stage III chronic kidney disease: Plan: CKD-3 with baseline Cr 1.[address] Harry kahn today, near baseline at 1.79. Potassium on high side at 4.9, not on replacement - AM BMP Plan UTI - continue ceftriaxone, follow Cx - prelim GNR headache - started after nitroglycerine. could be migrainous. triptan contraindicated right now. can do IV depakote 500 mg if worsening and seems like migraine DVT ppx: SQ heparin Admission and Anticipated Discharge Date Admission Date: August 11, 2023 Subjective feels well this AM, no chest pain or nausea. still has bilateral headache. feels like vision is worse than usual (blurrier) but does not have her glasses here. No colored spots / lights / zigzags or eye pain or redness Physical Exam 2 Physical Exam: PHYSICAL EXAMINATION Last 24h vital signs reviewed, see documentation in flowsheet Exam remains normal 08/12: General: comfortable appearing, no distress HEENT: Normocephalic, atraumatic, pupils round and equal, sclerae anicteric, no conjunctival injection, moist mucus membranes Lungs: Normal respiratory effort. Clear to auscultation bilaterally. No RRW Heart: Regular rate and rhythm, no murmurs. No JVD Abdomen: Soft, nontender, nondistended. Bowel sounds present. Extremities: Warm, dry, well-perfused. No extremity edema. Neuro: Alert and oriented x 4, face symmetric, moves 4 extremities well Psych: Normal affect and behavior Results & Data Results & Data Vital Signs (Past 12 Hours) Vital Signs Temp Pulse Pulse Pulse Resp BP Pulse Ox 08/13/23 04:00 36.7 C 90 16 155/78 H 93 08/13/23 00:00 08/12/23 23:51 36.8 C 95 H 16 146/73 H 93 08/12/23 22:01 92 H 08/12/23 19:18 36.9 C 87 18 140/74 94 Pulse Ox O2 Del Method O2 Del Method 08/13/23 04:00 Room Air 08/13/23 00:00 93 Room Air 08/12/23 23:51 Room Air 08/12/23 22:01 08/12/23 19:18 Room Air Laboratory Results 08/13/23 05:35 08/13/23 05:35 PG Care Time/CCT Total # of Minutes Spent Total Time Spent with Patient: Total time spent is greater than 50% in coordination of care (as documented) at patient's floor/unit and/or counseling patient: Coding Level of Care Code 53430 SUB INP/OBS CARE 2/35MIN Diagnoses Hypertensive emergency I16.1 NSTEMI (non-ST elevated myocardial infarction) I21.4 Type 1 diabetes mellitus E10.9 Hypertension I10 Stage III chronic kidney disease N18.3
[2023-08-13] MEDS: FAMOTIDINE 20 MG TAB PO ONE (09:15)
[2023-08-13] MEDS: LANTUS PER UNIT CHARGE SQ ONE (09:16)
[2023-08-13] MEDS: NovoLIN-N (NPH) PER UNIT CHARGE SQ SCH (09:17)
[2023-08-13] MEDS: diphenhydrAMINE Capsule 25 MG CAP PO ONE (09:17)
--- NOTE | 2023-08-13 11:12 | Pre Anesthesia Assessment ---
Date of Service August 13, 2023 Pre Sedation Assessment Vital Signs Temp Pulse Pulse Pulse Resp BP BP 08/13/23 11:08 98 H 18 172/88 H 08/13/23 08:25 36.7 C 90 18 160/91 H 08/13/23 04:00 36.7 C 90 16 155/78 H 08/13/23 00:00 08/12/23 23:51 36.8 C 95 H 16 146/73 H 08/12/23 22:01 92 H 08/12/23 19:18 36.9 C 87 18 140/74 08/12/23 15:44 36.5 C 92 H 18 124/73 08/12/23 15:00 94 H 08/12/23 11:27 36.8 C 97 H 18 132/67 Pulse Ox Pulse Ox O2 Del Method O2 Del Method 08/13/23 11:08 94 Room Air 08/13/23 08:25 95 Room Air 08/13/23 04:00 93 Room Air 08/13/23 00:00 93 Room Air 08/12/23 23:51 93 Room Air 08/12/23 22:01 08/12/23 19:18 94 Room Air 08/12/23 15:44 94 Room Air 08/12/23 15:00 08/12/23 11:27 94 Room Air Cardiovascular + regular rate and + regular rhythm Respiratory + respiratory effort normal Pre-Sedation Airway Assessment Smoking Status: Never smoker Hx Sleep Apnea: No Hx Difficult Intubation: No Short, Thick Neck: No Thyromental Distance: > or= 3.5 Finger Breadths Oral Cavity: + Capped Teeth Mallampati Class: III ASA: ASA3 NPO Status Date of Last Intake of Fluids: 08/13/23 Date of Last Intake of Solid Food: 08/12/23 Time of Last Intake of Solid Foods: 19:00 Procedure Planning Contraindications for Sedation: none Current Medications Reviewed: Yes Notes The planned sedation has been discussed with the patient. Informed Consent was obtained. I have identified the patient, determined the appropriateness of sedation and have assessed the patient immediately prior to the procedure. All medicine(s) and interventions are by my order.
--- NOTE | 2023-08-13 11:15 | Pharmacy Report ---
Pharmacy Glycemic Short Note 2 - Date of Service August 13, 2023 - Glycemic Short BSG Results (Last 24 hours): 08/12/23 08/12/23 08/12/23 11:12 16:31 19:53 Glucose POC Glucose 263 H 222 H 284 H 08/12/23 08/13/23 08/13/23 23:50 03:48 05:35 Glucose 188 H POC Glucose 161 H 153 H 08/13/23 08:48 Glucose POC Glucose 229 H OUTPATIENT ANTIDIABETIC REGIMEN: * Toujeo 54 units hs, humalog SSI (per outpatient notes, CR 1:3 with breakfast, CR 1:4 with lunch and CR 1:2.5 with dinner) ASSESSMENT: 08/12: * BSGs yesterday were somewhat improved at 228,201,263,222,284,161 mg/dL. F asting BSG this morning was 229 mg/dL. * BSgs likely trended back up given two doses of prednisone 50mg that were ordered overnight for procedure today. A third dose was ordered for this morning. Will plan to cover that with NPH. I expect BSGs to remain mildly elevated through today due to steroids and given correctional insulin was not not administered this morning for the BSG of 229 mg/dL. Lunch BSG was also delayed until ~3pm and was 280. Discussed with RN, will give a one time reduced dose of novolog and plan to delay dinner check, tray and coverage until ~1730 to mitigate stacking. * Patient was made NPO at midnight for the procedure this morning but given type of procedure and discussion with RN, will likely have a diet resumed for lunch. 08/11: * BSGs yesterday were [phone] mg/dL and fasting this morning was 201 mg/dL. Patient received a total of 77 units of insulin yesterday 40 of which was basal. * Evening hyperglycemia likely a result of the 125 mg dose of solumedrol given on admission. No subsequent steroid doses have been ordered. * Will reduce morning Lantus does to allow fro more flexibility with evening scale as I expect BSGs to continue to trend towards normal without additional steroid doses. * Patient is ordered a diet and is consistently eating 08/10 * 77 year old, admitted with chest pain. Patient receiving one time dose of steroids on admission, anticipate steroid induced hyperglycemia. Patient is type 1 vs 1.5 diabetic per notes. No basal insulin yet today, will give Lantus 30 units x 1 now. Will add on scale for HS in case BSGs trending upward. PLAN FOR INPATIENT GLYCEMIC CONTROL: * Hold outpatient oral diabetes medications * Basal insulin * Lantus 10 units x 1 this morning * NPH 15 units X 1 with prednisone 50mg * Lantus 5-10-15 units HS -See MAR for details * Bolus insulin * NovoLog per scale ACHS or Q6hrs while NPO and overnight checks * Goal Range: Low 110 mg/dL - High 140 mg/dL * Correction Factor: 15 mg/dL/unit * Nutritional / Prandial insulin per carb ratio of 1 unit per 4 grams CHO consumed
--- NOTE | 2023-08-13 12:25 | Cardiac Catheterization ---
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 Clinical evaluation leading to the procedure CAD Presenation: Non STEMI Diagnostic Physicians Name: Adelfo Flannery MD Closure Device Recommendations: PCI without planned CABG Cardiac Cath Procedure Full Procedure Date August 13, 2023 Pre-Procedure Diagnosis Pre-Procedure Diagnosis: Non STEMI AUC Score AUC Score: 7 Post-Procedure Diagnosis Post-Procedure Diagnosis: Severe CAD Procedure(s) Performed Procedure(s) Performed: Coronary Angiography and Left Heart Cath Tool Engineer Adelfo Flannery MD Resin Painter(s) none Estimated Blood Loss Estimated Blood Loss: None Medication(s) Medication(s): Fentanyl, Heparin, Lidocaine 1%, Nicardipine and Versed Summary of Findings Procedure performed: Coronary angiography, left heart catheterization Staff escrow closer: Adelfo Flannery MD Indication: Patient is a 69-year-old woman with multiple risk factors for coronary disease who presented with elevated cardiac biomarkers and chest pain. Based on her symptoms and objective findings she was advised to undergo coronary angiography for evaluation of possible ACS. Procedure in detail: The patient was informed of the risks benefits and alternatives to the intended procedure, he understood such and wished to proceed. He was taken to the cardiac catheterization suite in a fasting state. Conscious sedation was administered per protocol and the patient was monitored electrocardiographically throughout today's procedure. The right wrist area was prepped and draped in usual sterile fashion. This area was anesthetized using subcutaneous administration of a lidocaine solution. The right radial artery was then access ed using Seldinger technique, and a arterial sheath was placed at this site over a guidewire. The sheath was used to facilitate passage of the cardiac catheter for coronary angiography and left heart catheterization. Coronary angiogram was then obtained in multiple orthogonal views prior to removal of the catheter. At the conclusion of the procedure the sheath was removed and hemostasis was ach ieved at the access site using manual pressure. The patient tolerated procedure well, there were no immediate complications. Equipment used: 5 Libyan tiger 4, 5 Libyan angled pigtail Findings: Coronary angiography Left main: Left main was normal in size and caliber and bifurcated normally into the left anterior descending left circumflex artery. No significant disease in this vessel. Left anterior descending: Left anterior descending produced a very large in branching septal acid mixer system and 1 large diagonal branch. There was some disease in the mid vessel and approximately 50% stenosis distal to D1. Left circumflex: Left circumflex was a nondominant vessel. It produced a large 1st OM system, large 2nd OM system and a medium size ongoing AV groove vessel. There was some tapering in the distal AV groove vessel prior to forming a 3rd obtuse marginal. Otherwise normal regularities. No discrete stenosis in this distribution. Right coronary: There was a discrete 99% stenosis in its midportion. Luminal irregularities throughout the remainder of the vessel. No other discrete stenosis or flow-limiting lesions. Impression: Right dominant coronary system Obstructive coronary disease involving the mid RCA Normal left ventricular filling pressures Hemodynamics Rest Ao:: 136/74 mm of mercury Final Ao: 170/89 mm of mercury LV: 177/0 mm of mercury Left ventricular end-diastolic pressure 12 mm of mercury Recommendations Recommendations: PCI without planned CABG Specimens Specimens: None Radiation Exposure (mGy) 645 Contrast (mls) 40 Procedural Complication(s) None Disposition PCU I attest to the content of the Intraoperative Record and any orders documented therein. Any exceptions are noted below. [facility] Card Cath Procedure Codes Cardiac Catheterization Procedure 1: Cardiovascular Cath Procedures: 30092 Coronaries and LHC (+/-LV) Moderate Sedation Procedure 1: Sedation/Anesthesia: 52780 Mod Sedation by the same physician;Init15 Min Child Age 5 & Up Procedure 2: Sedation/Anesthesia: 98500 Mod Sedation by the same physician; Ea [id number] Minutes PG Care Time/CCT Total # of Minutes Spent Total Time Spent with Patient: Total time spent is greater than 50% in coordination of care (as documented) at patient's floor/unit and/or counseling patient:
[2023-08-13] MEDS: fentaNYL citrate PF 100 MCG/2 ML VIAL ONE (12:39)
[2023-08-13] MEDS: MIDAZOLAM HCL 1 MG/ML 2ML VIAL ONE ×2 (12:40→12:41)
[2023-08-13] MEDS: niCARdipine HCL INJ 2.5 MG/ML 10 ML AMP ONE (12:40)
[2023-08-13] MEDS: NITROGLYCERIN/D5W 100MCG/ML 20ML SYR ONE (12:41)
[2023-08-13] MEDS: TICAGRELOR 90 MG TAB ONE (12:50)
--- NOTE | 2023-08-13 12:55 | Post Anesthesia Assessment ---
Date of Service August 13, 2023 Post Sedation Assessment Vital Signs Temp Pulse Pulse Pulse Resp BP BP 08/13/23 11:08 98 H 18 172/88 H 08/13/23 08:25 36.7 C 90 18 160/91 H 08/13/23 04:00 36.7 C 90 16 155/78 H 08/13/23 00:00 08/12/23 23:51 36.8 C 95 H 16 146/73 H 08/12/23 22:01 92 H 08/12/23 19:18 36.9 C 87 18 140/74 08/12/23 15:44 36.5 C 92 H 18 124/73 08/12/23 15:00 94 H Pulse Ox Pulse Ox O2 Del Method O2 Del Method 08/13/23 11:08 94 Room Air 08/13/23 08:25 95 Room Air 08/13/23 04:00 93 Room Air 08/13/23 00:00 93 Room Air 08/12/23 23:51 93 Room Air 08/12/23 22:01 08/12/23 19:18 94 Room Air 08/12/23 15:44 94 Room Air 08/12/23 15:00 Recovery Score Activity: Moves 4 extremities Respiration: Deep Breath/Cough Circulation: +/-20% PreAnes Value Consciousness: Fully Awake Oxygen Saturation: > 92% On Room Air Discharge Sedation Level of Care: Fast Track Phase II Post Sedation Plan On clinical assessment, the patient appears to have tolerated the sedation without complications. Patient is recovering as anticipated. Patient will continue to be monitored by nursing and may be discharged when sedation discharge criteria are met per below protocol. Upon Completions of procedure up to 15 minutes continue every 5 minute vital signs and the P.A.R. score; then discharge to a Phase I or Fast Track to Phase II per the following guidelines: * Discharge Patient to appropriate Phase II area if PAR is 8 or greater or return to pre- procedure baseline. The post - procedure orders will be as directed. * If PAR score is less than 8 or not return to pre-procedure baseline then patient will follow Phase I monitoring till PAR is reached for Phase II. The Phase I may be done in procedure room or may call to secure a Phase I area. * If naloxone or flumazenil are used for reversal, hold in Phase I for continued monitoring from when last reversal dose was given for a minimum of 60 minutes or longer pending the nurse and/or physician discretion of patient condition before discharge to Phase II. Please call the Sedation Physician to re-evaluate and complete post-note for discharge to Phase II area. Do NOT discharge from procedure sedation or Phase 1 until post- sedation evaluation note is complete by procedure /sedation MD Sedation Discharge Instructions to be given to the patient at discharge to home. [facility] Procedure Codes (Charges) Indication for Procedure Indication for procedure: NSTEMI Sedation/Anesthesia Procedure 1: Sedation/Anesthesia: 89085 Mod Sedation by a different physician ;Init15 Min Child Age 5&Up (Initial 15 min, start 1201) Total Sedation Time (minutes): 48 Procedure 2: Sedation/Anesthesia: 78291 Mod Sedation by a different physician;Ea Additional 15 Minutes (Additional 33 minutes, end time 1249) Total Sedation Time (minutes): 48
--- NOTE | 2023-08-13 13:07 | Cardiac Catheterization ---
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 Flannery note for coronary angiography diagnostic procedure) Diagnostic Physicians Name: Fadi Henry MD, PhD Closure Device Percutaneous Entry Location: Radial Closure Device: Radial Band Recommendations: Medical Therapy and/or Counseling and PCI without planned CABG PCI Indication: PCI for high risk Non-CARLA Lesion Segment Name: Mid RCA Culprit Artery: Yes Stenosis Prior to Rx (%): 95 to 99% Chronic Total Occlusion: No Pre-Procedure DANIE Flow: 3 Previously Treated Lesion: No Lesion Complexity: Non-High/Non-C Lesion Length (mm): 12 Thrombus Present: No Bifurcation Lesion: No Guidewire Across Lesion: Yes Intraprocedure Events Significant Disection: No Perforation: No Cardiac Cath Procedure Full Procedure Date August 13, 2023 Pre-Procedure Diagnosis Pre-Procedure Diagnosis: Non STEMI AUC Score AUC Score: 07 Post-Procedure Diagnosis Post-Procedure Diagnosis: Successful PCI Procedure(s) Performed Procedure(s) Performed: Drug Eluting Stent and Fractional Flow [place] Director Child Abuse Therapy Fadi Henry MD, PhD Estimated Blood Loss Estimated Blood Loss: 5 cc Medication(s) Medication(s): Fentanyl, Heparin and Versed Summary of Findings Brief description: Patient was already on the tables shaved and prepped. Had already been sedated. Had a 6 British radial artery glide sheath in place. I was asked to perform PCI of the RCA as well as IFR analysis of the LAD lesion. ACT was checked and additional heparin was provided intermittently throughout the case as needed to maintain therapeutic anticoagulation. 6 British JR4 guide was advanced over the J-wire and used to engage the right coronary. BMW reversal guidewire was advanced and positioned distally in the RCA Lesion was predilated with a 2.5 x 12 mm trek balloon up to 18 adan 3.5 x 18 mm [place] drug-eluting stent was deployed across the lesion at 15 adan. Postdilatation with the same stent balloon at 16 adan. Balloon was removed and sap technical architect angiography performed. Final angiographic evaluation was performed in orthogonal views. Guidewire followed by guide catheter were removed. IFR analysis of the LAD was undertaken next. 6 British EBU 3.0 guide catheter used to engage the left main coronary. Omni Doppler wire was advanced and positioned with the transducer just distal to the guide catheter tip. Pressures were normalized after normal saline flush. Guidewire was advanced and positioned so the transducer was distal to the LAD lesion. IFR was sampled 3 times. Guidewire was removed and final angiographic evaluation was performed. Guide catheter was removed over the J-wire. Radial artery sheath was removed. Hemostasis was obtained using the TR band. Patient remained hemodynamically stable and asymptomatic. She was returned to the recovery area. This ended the case. Interventional results: RCA PCI-0% residual stenosis post PCI DANIE-3 flow post PCI No evidence of dissection or perforation post PCI IFR analysis of LAD-0.96, 0.98, 0.98. Therefore, this is not hemodynamically significant. DANIE-3 flow post IFR analysis No evidence of dissection or perforation post IFR analysis Summary: 1. Successful PCI of the RCA with a single drug-eluting stent 2. IFR analysis of the angiographically borderline lesion in the LAD reveals this is not hemodynamically significant 3. Dual antiplatelet therapy for 1 to 2 years. 4. Optimize medical therapy for secondary prevention of coronary disease including; low-dose aspirin, high intensity statin therapy, beta-sean, plus or minus LINCOLN inhibitor/ARB per primary commodities clerk. Hemodynamics Rest Ao:: 156/86 mmHg Final Ao: 173/96 mmHg LV: Not performed Recommendations Recommendations: Medical Therapy and/or Counseling and PCI without planned CABG Radiation Exposure (mGy) 2775 mGy total, fluoroscopy time 19.5 minutes total Contrast (mls) 100 mL Anesthesia 1 mg Versed, 25 mcg fentanyl. Start 1201, End 1249 Procedural Complication(s) None Disposition Engineering Project Designer Holding/Recovery I attest to the content of the Intraoperative Record and any orders documented therein. Any exceptions are noted below. [employer] Card Cath Procedure Codes Cardiac Catheterization Procedure 1: Cardiovascular Cath Procedures: 78514 (Doppler) Pressure Wire (LD) Moderate Sedation Procedure 1: Sedation/Anesthesia: 60224 Mod Sedation by a different physician ;Init15 Min Child Age 5&Up (Initial 15 min, start 1201) Procedure 2: Sedation/Anesthesia: 04390 Mod Sedation by a different physician;Ea Additional 15 Minutes (Additional 33 min, stop 1249) Stenting Procedure 1: Cardiovascular Stent Procedures: 78121 Perc transluminal revascularization of acute sub/total occl, aMI (RCA) PG Care Time/CCT Total # of Minutes Spent Total Time Spent with Patient: Total time spent is greater than 50% in coordination of care (as documented) at patient's floor/unit and/or counseling patient:
[2023-08-13] MEDS: INSULIN ASPART PER UNIT CHARGE SC SCH (15:10)
--- NOTE | 2023-08-13 15:15 | Cardiology Progress Note ---
Date of Service August 13, 2023 Assessment & Plan (1) Hypertensive emergency: (2) Elevated troponin I level: (3) Chest pain: Plan 1. Elevated troponin: NSTEMI. Most likely related to severe coronary stenosis in the setting elevated blood pressures. No evidence of an ACS on her catheterization. She did undergo PCI to the RCA with good result. 2. Chest pain: No evidence of acute coronary syndrome. Possibly related to transient ischemia and markedly elevated blood pressures. 3. Hypertension: She continues to have elevated blood pressures. I think she would benefit most from the addition of amlodipine or carvedilol. Admission and Anticipated Discharge Date Admission Date: August 11, 2023 Subjective This afternoon the patient claimed he feeling well. No recurrent symptoms of chest discomfort. No breathing difficulty. Review of Systems Review of Systems: Per HPI Physical Exam Physical Exam: She is alert and oriented x3. Mood affect appear normal. She answered all questions appropriately. HEENT: Sclerae are anicteric. Pupils are equal and reactive to light and accommodation. Extraocular movements were intact. Neuro: Cranial nerves intact Lungs: Normal respiratory effort. Cardiac: The rhythm was regular. S1 and S2 were normal. There are no murmurs on examination. The PMI was not markedly displaced on palpation. Extremities: Patient has bilateral radial pulses that are equal in intensity. There is no evidence cyanosis or clubbing. There was no evidence of significant peripheral edema bilaterally. Skin: There are no rashes noted on examination today. Results & Data Vital Signs (Past 12 Hours) Vital Signs Temp Pulse Pulse Resp BP BP Pulse Ox 08/13/23 13:01 92 H 16 166/95 H 95 08/13/23 11:08 98 H 18 172/88 H 94 08/13/23 08:25 36.7 C 90 18 160/91 H 95 08/13/23 04:00 36.7 C 90 16 155/78 H 93 O2 Del Method 08/13/23 13:01 Room Air 08/13/23 11:08 Room Air 08/13/23 08:25 Room Air 08/13/23 04:00 Room Air Laboratory Results Abnormal Lab Results 08/12/23 08/12/23 08/12/23 16:31 19:53 23:50 WBC RBC Hgb Hct MCV MCH MCHC RDW Std Deviation RDW Coeff of Dior Plt Count MPV Immature Gran % (Auto) Neut % (Auto) Lymph % (Auto) [place] % (Auto) Eos % (Auto) Baso % (Auto) Neut # (Auto) Lymph # (Auto) [place] # (Auto) Eos # (Auto) Baso # (Auto) Immature Gran # (Auto) Activ Coag Time Kaolin Sodium Potassium Chloride Carbon Dioxide Anion Gap BUN Creatinine Est Cr Clr Drug Dosing Est GFR ( Amer) Est GFR (Non-Af Amer) BUN/Creatinine Ratio Glucose POC Glucose 222 H 284 H 161 H Calcium 08/13/23 08/13/23 08/13/23 03:48 05:35 08:48 WBC 14.47 H RBC 4.44 Hgb 14.2 Hct 39.0 MCV 87.8 MCH 32.0 MCHC 36.4 H RDW Std Deviation 40.2 RDW Coeff of Dior 12.6 Plt Count 281 MPV 9.6 Immature Gran % (Auto) 0.9 Neut % (Auto) 87.0 Lymph % (Auto) 10.2 [place] % (Auto) 1.7 Eos % (Auto) 0.1 Baso % (Auto) 0.1 Neut # (Auto) 12.58 H Lymph # (Auto) 1.48 [place] # (Auto) 0.25 Eos # (Auto) 0.01 Baso # (Auto) 0.02 Immature Gran # (Auto) 0.13 Activ Coag Time Kaolin Sodium 133 L Potassium 4.9 Chloride 100 Carbon Dioxide 22 Anion Gap 11 BUN 51 H Creatinine 1.79 H Est Cr Clr Drug Dosing 30.4 Est GFR ( Amer) 30.9 Est GFR (Non-Af Amer) 26.7 BUN/Creatinine Ratio 28.5 H Glucose 188 H POC Glucose 153 H 229 H Calcium 9.8 08/13/23 08/13/23 08/13/23 12:06 12:35 12:48 WBC RBC Hgb Hct MCV MCH MCHC RDW Std Deviation RDW Coeff of Dior Plt Count MPV Immature Gran % (Auto) Neut % (Auto) Lymph % (Auto) [place] % (Auto) Eos % (Auto) Baso % (Auto) Neut # (Auto) Lymph # (Auto) [place] # (Auto) Eos # (Auto) Baso # (Auto) Immature Gran # (Auto) Activ Coag Time Kaolin 212 H 217 H 223 H Sodium Potassium Chloride Carbon Dioxide Anion Gap BUN Creatinine Est Cr Clr Drug Dosing Est GFR ( Amer) Est GFR (Non-Af Amer) BUN/Creatinine Ratio Glucose POC Glucose Calcium 08/13/23 14:50 WBC RBC Hgb Hct MCV MCH MCHC RDW Std Deviation RDW Coeff of Dior Plt Count MPV Immature Gran % (Auto) Neut % (Auto) Lymph % (Auto) [place] % (Auto) Eos % (Auto) Baso % (Auto) Neut # (Auto) Lymph # (Auto) [place] # (Auto) Eos # (Auto) Baso # (Auto) Immature Gran # (Auto) Activ Coag Time Kaolin Sodium Potassium Chloride Carbon Dioxide Anion Gap BUN Creatinine Est Cr Clr Drug Dosing Est GFR ( Amer) Est GFR (Non-Af Amer) BUN/Creatinine Ratio Glucose POC Glucose 280 H Calcium Diagnostic Findings Cardiac catheterization performed today revealed 99% stenosis of the mid RCA and mid LAD disease which was assessed but is non obstructive. PCI performed to the mid RCA. PG Care Time/CCT Total # of Minutes Spent Total Time Spent with Patient: Total time spent is greater than 50% in coordination of care (as documented) at patient's floor/unit and/or counseling patient: Coding Level of Care Code 47776 SUB INP/OBS CARE 2/35MIN Diagnoses Hypertensive emergency I16.1 Elevated troponin I level R79.89 Chest pain R07.9 Chest pain type: unspecified (3) Chest pain Chest pain type: unspecified Qualified Code(s): R07.9 - Chest pain, unspecified
[2023-08-13] MEDS: carvediloL 3.125 MG TAB PO SCH (16:17)
[2023-08-13] MEDS: ASPIRIN 81 MG ECTAB PO SCH (16:20)
[2023-08-13] MEDS: HEPARIN SOD 5,000 UNIT/0.5 ML VIAL SQ SCH (20:46)
[2023-08-13] MEDS: OPTIRAY 350 ONE (21:52)
[2023-08-13] MEDS: HEPARIN (PORCINE) 1000 UNIT/ML 10 ML (CATH LAB USE ONLY) ONE (21:52)
[2023-08-14] MEDS: TICAGRELOR 90 MG TAB PO SCH (00:05)
[2023-08-14 06:25] LABS: Calcium 9.3 mg/dl (8.6-10.3); Chol HDL Ratio 5.4 (0-5); Creatinine Clr Calc Pharmacy 29.9 ml/min; Est GFR (African American) 30.1 ml/min
[2023-08-14 06:35] LABS: Basophils # (auto) 0.02 K/uL (0.00-0.20); Basophils % (auto) 0.2 %; Eosinophils # (auto) 0.02 K/uL (0.00-0.50); Eosinophils % (auto) 0.2 %; Hematocrit (blood only) 36.2 % (37.0-47.0); Hemoglobin 12.9 g/dl (12.0-16.0); Immature Granulocytes % (auto) 1.5 %; Lymphocytes # (auto) 2.04 K/uL (1.20-3.40); Lymphocytes % (auto) 15.4 %; Mean Corpuscular Hemoglobin 31.8 pg (25.0-34.0); Mean Corpuscular Hgb Conc 35.6 g/dL (32.0-36.0); Mean Corpuscular Volume 89.2 fL (80.0-100.0); Mean Platelet Volume 9.6 fL (9.4-12.4); Monocytes # (auto) 1.19 K/uL (0.11-0.59); Neutrophils # (auto) 9.74 K/uL (1.40-6.50); Neutrophils % (auto) 73.7 %; Platelet Count 273 K/uL (130-400); RDW Coefficient of Variation 12.9 % (11.5-14.5); RDW Standard Deviation 41.8 fL (36.4-46.3); Red Blood Count 4.06 M/uL (4.20-5.40); White Blood Count 13.21 K/ul (4.8-10.8)
[2023-08-14] MEDS ORDERED: ATORVASTATIN 40 MG TAB PO SCH (09:00)
--- NOTE | 2023-08-14 12:59 | Cardiology Progress Note ---
Date of Service August 14, 2023 Assessment & Plan (1) Hypertensive emergency: (2) Elevated troponin I level: (3) Chest pain: Plan 1. Elevated troponin: NSTEMI. Most likely related to severe coronary stenosis in the setting elevated blood pressures. No evidence of an ACS on her catheterization. She did undergo PCI to the RCA with good result. 2. Chest pain: No evidence of acute coronary syndrome. Possibly related to transient ischemia and markedly elevated blood pressures. 3. Hypertension: Started on carvedilol in addition to her other medications. 4. Hyperlipidemia: There was an attempt previously to approve rip off the. However, this was denied by her insurance. I am confident that now she has established coronary disease we can submit the application again. Will see her on an outpatient basis and try to get her Repatha. She should refrain from vigorous use of the right wrist or lifting more than 5 lb for another 5 days. She can be discharged on dual anti-platelet therapy with 81 mg of aspirin and Brilinta twice daily. She can continue her current antihypertensive regimen which includes the addition of carvedilol. Admission and Anticipated Discharge Date Admission Date: August 11, 2023 Subjective This afternoon the patient claimed he feeling well. She has been ambulatory around her room without chest pain, dyspnea or dizziness. No discomfort at the right radial access site. Review of Systems Review of Systems: Per HPI Physical Exam Physical Exam: She is alert and oriented x3. Mood affect appear normal. She answered all questions appropriately. HEENT: Sclerae are anicteric. Pupils are equal and reactive to light and accommodation. Extraocular movements were intact. Neuro: Cranial nerves intact Lungs: Normal respiratory effort. Cardiac: The rhythm was regular. S1 and S2 were normal. There are no murmurs on examination. The PMI was not markedly displaced on palpation. Extremities: Patient has bilateral radial pulses that are equal in intensity. There is no evidence cyanosis or clubbing. There was no evidence of significant peripheral edema bilaterally. Skin: There are no rashes noted on examination today. ENMT: Mallampati Class: III Respiratory: normal respiratory effort Cardiovascular: Rate/Rhythm: regular rate and regular rhythm Results & Data Vital Signs (Past 12 Hours) Vital Signs Temp Pulse Resp BP Pulse Ox O2 Del Method 08/14/23 10:49 36.5 C 61 18 152/89 H 95 Room Air 04/18/24 07:23 36.7 C 68 18 134/75 96 Room Air 08/14/23 03:57 36.7 C 80 14 127/67 94 Room Air Laboratory Results Abnormal Lab Results 08/13/23 08/13/23 08/13/23 12:35 12:48 14:50 WBC RBC Hgb Hct MCV MCH MCHC RDW Std Deviation RDW Coeff of Dior Plt Count MPV Immature Gran % (Auto) Neut % (Auto) Lymph % (Auto) [place] % (Auto) Eos % (Auto) Baso % (Auto) Neut # (Auto) Lymph # (Auto) [place] # (Auto) Eos # (Auto) Baso # (Auto) Immature Gran # (Auto) Activ Coag Time Kaolin 217 H 223 H Sodium Potassium Chloride Carbon Dioxide Anion Gap BUN Creatinine Est Cr Clr Drug Dosing Est GFR ( Amer) Est GFR (Non-Af Amer) BUN/Creatinine Ratio Glucose POC Glucose 280 H Calcium Triglycerides Cholesterol LDL Cholesterol, Calc VLDL Cholesterol, Calc HDL Cholesterol Cholesterol/HDL Ratio 08/13/23 08/13/23 08/14/23 17:22 20:09 00:01 WBC RBC Hgb Hct MCV MCH MCHC RDW Std Deviation RDW Coeff of Dior Plt Count MPV Immature Gran % (Auto) Neut % (Auto) Lymph % (Auto) [place] % (Auto) Eos % (Auto) Baso % (Auto) Neut # (Auto) Lymph # (Auto) [place] # (Auto) Eos # (Auto) Baso # (Auto) Immature Gran # (Auto) Activ Coag Time Kaolin Sodium Potassium Chloride Carbon Dioxide Anion Gap BUN Creatinine Est Cr Clr Drug Dosing Est GFR ( Amer) Est GFR (Non-Af Amer) BUN/Creatinine Ratio Glucose POC Glucose 261 H 257 H 108 H Calcium Triglycerides Cholesterol LDL Cholesterol, Calc VLDL Cholesterol, Calc HDL Cholesterol Cholesterol/HDL Ratio 08/14/23 08/14/23 08/14/23 03:55 05:40 07:26 WBC 13.21 H RBC 4.06 L Hgb 12.9 Hct 36.2 L MCV 89.2 MCH 31.8 MCHC 35.6 RDW Std Deviation 41.8 RDW Coeff of Dior 12.9 Plt Count 273 MPV 9.6 Immature Gran % (Auto) 1.5 Neut % (Auto) 73.7 Lymph % (Auto) 15.4 [place] % (Auto) 9.0 Eos % (Auto) 0.2 Baso % (Auto) 0.2 Neut # (Auto) 9.74 H Lymph # (Auto) 2.04 [place] # (Auto) 1.19 H Eos # (Auto) 0.02 Baso # (Auto) 0.02 Immature Gran # (Auto) 0.20 Activ Coag Time Kaolin Sodium 135 L Potassium 4.0 Chloride 104 Carbon Dioxide 24 Anion Gap 7 BUN 53 H Creatinine 1.83 H Est Cr Clr Drug Dosing 29.9 Est GFR ( Amer) 30.1 Est GFR (Non-Af Amer) 26.0 BUN/Creatinine Ratio 29.0 H Glucose 94 POC Glucose 112 H 102 H Calcium 9.3 Triglycerides 202 H Cholesterol 268 H LDL Cholesterol, Calc 178 VLDL Cholesterol, Calc 40 H HDL Cholesterol 50 Cholesterol/HDL Ratio 5.4 H 08/14/23 11:18 WBC RBC Hgb Hct MCV MCH MCHC RDW Std Deviation RDW Coeff of Dior Plt Count MPV Immature Gran % (Auto) Neut % (Auto) Lymph % (Auto) [place] % (Auto) Eos % (Auto) Baso % (Auto) Neut # (Auto) Lymph # (Auto) [place] # (Auto) Eos # (Auto) Baso # (Auto) Immature Gran # (Auto) Activ Coag Time Kaolin Sodium Potassium Chloride Carbon Dioxide Anion Gap BUN Creatinine Est Cr Clr Drug Dosing Est GFR ( Amer) Est GFR (Non-Af Amer) BUN/Creatinine Ratio Glucose POC Glucose 108 H Calcium Triglycerides Cholesterol LDL Cholesterol, Calc VLDL Cholesterol, Calc HDL Cholesterol Cholesterol/HDL Ratio PG Care Time/CCT Total # of Minutes Spent Total Time Spent with Patient: Total time spent is greater than 50% in coordination of care (as documented) at patient's floor/unit and/or counseling patient: Coding Level of Care Code 52332 SUB INP/OBS CARE 2/35MIN Diagnoses Hypertensive emergency I16.1 Elevated troponin I level R79.89 Chest pain R07.9 Chest pain type: unspecified (3) Chest pain Chest pain type: unspecified Qualified Code(s): R07.9 - Chest pain, unspecified
--- NOTE | 2023-08-14 18:12 | Discharge Summary ---
Date of Service August 14, 2023 Admission HPI Per Admitting Provider Anamaria is a 69-year-old female with past medical history of type 1 diabetes, metabolic syndrome, CKD 3, DVT no longer on anticoagulation who presents to the ER with chest pain. Patient has had a chronic unchanged cough but day of admission she felt more weak than normal and had increased pain in her left anterior chest. EKG did not show any acute ST segment changes. She had a troponin elevation of 18/35 on admission, and was heparinized while in the ER. Patient could not get a CTA due to reported contrast allergy, unclear if patient has ever had pretreatment protocol for this before. One week ago became very short of breath, had some pain in her LEFT chest, and felt more weak than normal. Has been taking her omeprazole, lisinopril, hctz as directed but wasn't taking insulin as she had a poor appetite and wasn't eating. Today she got out of the shower and was completely exhausted, short of breath, and weak. Had sharp pain behind her LEFT breast which was worse and not radiating. Layed on the couch without improvement, tried to do some errands and 'had no energy at all.' Also has a little pain in her back right between her shoulder blades. BP very high, normally 120/60s. Was in [place] 11 years ago and had a chest spasm which felt similar in the past. Pt has an iodinated contrast allergy. She had a CT scan, had part of it, the dye was injected and then all she remembers is being pulled out of the tube and was told to never again to have iodine contrast. Patient does not remember what happened. [facility] Se[facility]. Cardoza in [place] for pancreatic cysts following x15 years. No changes. Prior to [place] had tolerated IV contrast OK. Chest pain right now is 2/10. Pain between her shoulder blades is 2/10 and sharp. Deep breathing causes pain in her L chest, stomach, and back No headache TDD insulin is usually 85-120units TOTAL per day. History of a blood clot in her RLE extremity. Principal Diagnosis Hypertensive emergency, type 2 NSTEMI, coronary artery disease Discharge Exam PHYSICAL EXAMINATION Last 24h vital signs reviewed, see documentation in flowsheet Exam remains normal 08/13: General: comfortable appearing, no distress HEENT: Normocephalic, atraumatic, pupils round and equal, sclerae anicteric, no conjunctival injection, moist mucus membranes Lungs: Normal respiratory effort. Clear to auscultation bilaterally. No RRW Heart: Regular rate and rhythm, no murmurs. No JVD Abdomen: Soft, nontender, nondistended. Bowel sounds present. Extremities: Warm, dry, well-perfused. No extremity edema. R wrist access site without bleeding or hematoma, hand warm, intact radial pulse Neuro: Alert and oriented x 4, face symmetric, moves 4 extremities well Psych: Normal affect and behavior Discharge Data Allergies Allergy/AdvReac Type Severity Reaction Status Date / Time Iodinated Contrast Media Allergy Mild Unknown Verified 05/27/23 12:44 iodine Allergy Mild Unknown Verified 05/27/23 12:44 apixaban [From Eliquis] AdvReac Mild Hives Verified 05/27/23 12:44 atorvastatin AdvReac Mild leg cramps Verified 05/27/23 12:44 rosuvastatin AdvReac Mild leg cramps Verified 05/27/23 12:44 simvastatin AdvReac Mild leg cramps Verified 05/27/23 12:44 Consultations 08/11/23 12:44 ED Decision to Admit Stat 08/12/23 13:29 Consult Cardiology Routine Procedures Performed Operation Date: 08/13/23 11:00 Actual Procedures p Cath, Left with Cors and Vent - Adelfo Flannery MD s Cineradiography w/Routine Exam - Adelfo Flannery MD s Drug Eluting Stent SGl Vessel - Fadi Henry MD, PhD s Fraction Flow [place] SGL Ves - Fadi Henry MD, PhD Ordered Studies 08/11/23 11:04 US venous doppler LE BI Stat 08/11/23 13:54 CT angio chest dissec wo/w con Stat 08/13/23 11:21 CL Cath Imgs for PACS use only Stat Chest X-Ray 08/11/23 09:23 XR chest 1V portable HISTORY: Chest pain, nonspecific COMPARISON: Chest 11/25/2021. FINDINGS: No pneumothorax. No pleural effusions. The cardiac silhouette remains mildly enlarged. Mild interstitial thickening is likely chronic. No focal lung consolidations to suggest a pneumonia. No evidence for pulmonary edema. A few small linear bibasilar densities favor subsegmental atelectasis or scarring. No acute fractures identified. IMPRESSION: No acute process. ACT 112: Negative or not required by law. Electronically signed by: Dewayne Javier M.D. 08/11/2023 10:23 AM Venous Doppler Study 08/11/23 11:04 BILATERAL LOWER EXTREMITY VENOUS DOPPLER HISTORY: CP and possible PE COMPARISON STUDY: None. FINDINGS: There is normal compressibility, flow, and augmentation within the bilateral lower extremity deep venous systems. The greater saphenous veins are not well visualized. This is likely due to the history of prior venous ablations. IMPRESSION: No DVT within the right or left lower extremity. ACT 112: Negative or not required by law. Electronically signed by: Dewayne Javier M.D. 08/11/2023 12:22 PM Chest CTA 08/11/23 13:54 CHEST CTA for AORTIC DISSECTION CT DOSE: 1385.79 mGy.cm HISTORY: Mid chest and back pain. TECHNIQUE: Multiaxial CT images of the chest were performed both before and after the intravenous administration of contrast to evaluate the aorta. 3D/MIP images were also obtained. Sagittal and coronal reformations were also reviewed. A dose lowering technique was utilized adhering to the principles of ALARA. COMPARISON STUDY: Abdomen and pelvis CT 11/26/2021. FINDINGS: Noncontrast imaging through the chest shows no evidence for an intramural hematoma within the thoracic aorta. There are moderate to severe coronary artery calcifications noted. The thoracic aorta is normal in course and caliber with no evidence for a dissection. The study was not performed as a dedicated PE study. Mild mixing artifact noted within the central pulmonary arteries. However, no definite filling defects within the pulmonary arteries to suggest a pulmonary embolus. Degenerative changes within the thoracic spine. Minimal deformity at the superior endplate of T4 is likely chronic. No acute fractures within the chest. There are few small gallstones. The visualized liver, spleen, adrenal glands unremarkable. Innumerable small cystic lesions again noted within the pancreas with a partially visualized 9 mm stone at the distal main pancreatic duct. This remains unchanged. Normal esophagus. Normal thyroid gland. Paravertebral soft tissues are unremarkable. No significant central canal narrowing by CT technique. The heart is normal in size. No pericardial effusion. No hilar lymphadenopathy. A few prominent mediastinal lymph nodes aren't doubtful clinical significance. No pneumothorax. The central airways are patent. No focal lung consolidations to suggest a pneumonia. No evidence for pulmonary edema. IMPRESSION: 1. No evidence for an aortic dissection. 2. No evidence for a pulmonary embolus. 3. Cholelithiasis. 4. Innumerable small cystic lesions again noted within the pancreas with a partially visualized 9 mm stone at the distal main pancreatic duct. This remains unchanged. ACT 112: Negative or not required by law. Electronically signed by: Dewayne Javier M.D. 08/11/2023 2:58 PM 08/14/23 05:40 08/14/23 05:40 Hospital Course (1) Hypertensive emergency: Hypertensive emergency present on admission with peak BP 217/124 associated with chest pain and elevated troponin Unclear trigger, states her BP is usually well controlled on usual outpatient regimen, did not miss any meds, no dietary indiscretions BP Improved but remained moderately elevated -continue usual losartan and HCTZ, added carvedilol because of CAD, BP improved, most readings normal last 24h (2) NSTEMI (non-ST elevated myocardial infarction): Present on admission. No evidence of ACS on coronary angiogram, so likely type 2 NSTEMI related to myocardial strain from severe hypertension Left sided chest pain and elevated troponin to peak of 245, now downtrending EKG without evidence of STEMI. CP resolved with control of BP. Had one similar episode at rest in past. SHIVA reviewed - reassuring with normal LVEF and no rwma's CTPA in ED without PE or aortic dissection Troponin elevation most likely demand ischemia related to hypertensive emergency, however, she had a significant risk of underlying coronary artery disease: Strong FH and multiple other cardiac risk factors (DM1, CKD-3, HTN) -consulted cardiology, Dr. Flannery -coronary angiography 08/12, PCI with TANIA to RCA, LAD lesion evaluated and had DANIE 3 flow so no intervention -pretreated with steroids for hx contrast reaction, tolerated well -DAPT - ASA (ordered) + brilinta for 1-[address] Henry, counseled not to stop or run out, carvedilol, already on ARB -is highly statin intolerant had severe leg cramps on three different statins and pain resolved completely after discontinuation -front office administrator will work on getting approval for repatha for HLD (previously denied by insurance but now has confirmed CAD) -follow up with cardiology (3) Type 1 diabetes mellitus: Type 1 diabetes Usual total daily dose 85-120. Has a CGM. She is trying to get qualified for insulin pump in future continue basal bolus insulin. steroid induced hyperglycemia (contrast allergy pretreatment). Pharmacy glycemic consult resume home regimen and follow up with diabetes clinic (4) Hypertension: see above (5) Stage III chronic kidney disease: CKD-3 with baseline Cr 1.[address] Mcdonald stable today, near baseline at 1.8. Potassium normal - has appt with Dr. Mcdonald 08/26 Plan UTI - treated with ceftriaxone, changed to cefadroxil x 7d, culture with gamino- sensitive E. coli. Hematuria - had episode of gross hematuria 08/12 following coronary angiogram/PCI, no clots and completely resolved by this AM. This is likely from procedural anticoagulants and concurrent UTI. However, she had episode of gross hematuria in 2019 for which she saw urologists, it resolved and never recurred. [place] [facility]. Had normal kidneys on ultrasound at that time, though does have right renal cysts and indeterminate 2 cm exophytic focus on abdominal MRI done to image pancreas 01/2023. Had cystoscopy and there were three suspicious red lesions but biopsies and cytology neg for cancer, just showed reactive process may have been related to preceding UTI. Saw urology at [facility] and cysto with pyelogram planned but was severely hypertensive so anesthesia cancelled. Ongoing plan was to follow up PRN. She will discuss with Dr. Mcdonald and may schedule follow up with [facility] urology, certainly if recurrent episode. Total Time Total Time Spent Total Time Spent (In Minutes): I personally spent: 40 minutes today on clinical care activities including: reviewing chart notes and vital signs reviewing labs discussion with front office administrator examining and counseling the patient writing orders, discharge instructions documentation Discharge Plan Discharge Items Patient Disposition: Home - Self-Care Reason For Visit: TROP, CHEST PAIN, HTN Discharge Diagnosis: Hypertensive emergency, NSTEMI likely type 2, CAD, UTI Activity: As commented below Activity Comment: No vigorous use of right hand or wrist for 7 days Lifting: No more than 5 pounds Lifting Comment: No more than 5 lb with the right hand. Non-emergency contact: Primary Care Provider and Time Motion Analyst Call non-emergency contact if: you have any medication questions and your symptoms worsen Follow-up/Referrals: ProTd MD [Primary Care Provider] - 08/18/23 11:30 am (with Betzy Villatoro PA-C ) Adelfo Flannery MD [Physician] - 08/19/23 4:00 pm (With Nick Farmer PA-C) Diet: Carb Count or DM1 and Heart Healthy Addtl Attending Provider Instructions: Severely elevated blood pressure - unclear what triggered this Mild heart attack likely from strain from the high BP Coronary artery disease - right coronary artery was stented -you will need to take aspirin plus Brilinta for typically 1-2 years. Do not run out or stop these unless directed by a front office administrator - stopping one or both too early can result in the stent clotting up which can cause a severe heart attack -if brillinta is too expensive talk to your front office administrator about switching to plavix -talk to your front office administrator about cholesterol-lowering options since you are intolerant to statins -for your BP we added a medication called carvedilol that lowers BP and also protects your heart -monitor your BP at home. ideally would be normal. 140-170 is moderately elevated and doses should be adjusted. Call your doctor right away if consistently over 180. 200 and higher is an emergency. You do have a urinary tract infection - the culture did come back midmorning and it is E. coli sensitive to all common antibiotics -take antibiotic for 7 more days -I think the blood in your urine yesterday was related to inflammation from the UTI plus anticoagulants used during stenting -follow up with Dr. Mcdonald as scheduled. You could schedule to see the urologist again, but you definitely should if there is recurrence of blood in urine it was a pleasure taking care of you in the hospital Claire Monsalve MD Pending Studies at Discharge: No Stand-Alone Forms: My [facility] [employer], Smoking Cessation Medications and DC Order Prescriptions: New Brilinta 90 mg Tablet 90 mg PO BID Qty: 60 1RF carvedilol 3.125 mg Tablet 3.125 mg PO BIDM Qty: 60 0RF aspirin 81 mg Tablet,Delayed Release (Dr/Ec) 81 mg PO QAM Qty: 0 0RF Rx Instructions: buy over the counter cefadroxil 500 mg capsule 500 mg PO BID Qty: 14 0RF Continued miconazole nitrate 2 % powder 1 applic topical DAILY PRN (Reason: rash) Qty: 90 1RF Toujeo SoloStar U-300 Insulin 300 unit/mL (1.5 mL) insulin pen 54 unit SQ HS 90 Days Qty: 18 3RF (DME) pen needle, diabetic [BD Ultra-Fine Fela Pen Needle] 32 gauge x 5/32" needle See Rx Instructions .ROUTE .MEDSUPPLY Qty: 500 3RF Rx Instructions: use 5 x daily hydrochlorothiazide 25 mg tablet 25 mg PO DAILY Qty: 90 3RF omeprazole 40 mg capsule,delayed release(DR/EC) 40 mg PO DAILY Qty: 90 3RF Repatha SureClick 140 mg/mL pen injector 140 mg subcut .every 2 weeks Qty: 6 3RF insulin lispro [Humalog KwikPen Insulin] 100 unit/mL insulin pen 150 unit SQ .COMPLEX Qty: 135 3RF Rx Instructions: 150 units subcut inject per sliding scale with meals up to 150 units daily; losartan 100 mg tablet 100 mg PO DAILY Qty: 90 3RF mecobalamin (vitamin B12) 1,000 mcg lozenge 1,000 mcg PO DAILY Rx Instructions: allow to dissolve in mouth OR may chew lightly before swallowing cholecalciferol (vitamin D3) 25 mcg (1,000 unit) capsule 25 mcg PO .COMPLEX Rx Instructions: 25 mcg orally every other day; clobetasol 0.05 % ointment 1 applic topical DAILY Qty: 45 0RF (DME) Dexcom G6 Sensor Device See Rx Instructions .ROUTE .MEDSUPPLY Qty: 3 Rx Instructions: As directed (DME) Dexcom G6 Web Services Developer Misc See Rx Instructions .ROUTE .MEDSUPPLY Qty: 1 Rx Instructions: As directed (DME) Dexcom G6 Transmitter Device See Rx Instructions .ROUTE .MEDSUPPLY Qty: 1 Rx Instructions: As directed Discharge Orders: Discharge Order (Routine); Ordered 08/14/23 Ordered By: Claire Monsalve Admission Data Admit Date/Time: 08/11/23 15:18 Attending Provider: Claire Monsalve Admit Provider: Tyler Amaya Primary Care Provider: Td Foster Other Providers: Tyler Amaya; Nick Farmer; Nawaf Sanford; Td Lobato; Fadi Henry; Denver Nash; Srinivasan hCou Jr; Eusebio Calix; Christine Patel; Serena Pugh; Adelfo Chamberlain; Adelfo Flannery; Earnest Villarreal; Sherin Joshi; Fuentes Miller; Mitzi Díaz; Deangelo Torrez; Dwayne Infante; Pawel Knight; Sukumar Santizo Other Interventions: Discharge Summary Assessment (RN) Last Done: 08/14/23 17:12 Coding Level of Care Code 15397 INP/OBS DISCH >30 MIN Diagnoses Hypertensive emergency I16.1 NSTEMI (non-ST elevated myocardial infarction) I21.4 Type 1 diabetes mellitus E10.9 Hypertension I10 Stage III chronic kidney disease N18.3
== END 2023-08-14 17:46 | disposition home or self-care (01) | DRG 321 ==
LOC: ED 09:09 → SUATTDRO 15:18 → EDINP 15:18 → 2E 15:41